=== PATIENT | female | born 1985 | race Caucasian/White ===

== ENCOUNTER 2016-04-25 16:23 | Emergency (ER) | payer OTHER ==
[2016-04-25 16:30] VITALS: BP 116/65; PULSE 53; RESP 17; TEMP 98
--- NOTE | 2016-04-25 16:46 | ED ---
General Adult HPI - General Chief complaint: Recheck/Abnormal Lab/Rx Stated complaint: Difficulty Sleeping Time Seen by Provider: 04/25/16 16:31 Source: patient, RN notes reviewed Mode of arrival: ambulatory Limitations: no limitations - History of Present Illness Initial comments: 30-year-old female presented emergency Department chief complaint insomnia. Patient states she's been having ongoing issues. Patient states that the last few days she'll had 7 hours sleep. Patient denies any changes. Patient is currently seen her neurologist for possible change in medication on Tuesday. Patient neurologist aware of her symptoms. Patient denies any suicidal or homicidal thoughts. Patient is requesting medication to help her sleep. She's never taken it in the past. This chest pain, palpitations, fever, chills. She states she has not taken any medication for thyroid at this time because the SIDE effects. - Related Data Home Medications Medication Instructions Recorded Confirmed Levothyroxine Sodium [Synthroid] 25 mcg PO DAILY 10/20/13 12/10/15 Topiramate [Topamax] 25 mg PO BID 10/20/13 12/10/15 levETIRAcetam [Keppra] 1,000 mg PO Q12HR 10/20/13 12/10/15 Budesonide-Formot 160-4.5 Mcg 1 puff INHALATION RT-BID 12/10/15 12/10/15 [Symbicort 160-4.5 Mcg Inhaler] Diazepam [Valium] 10 mg PO TID PRN 12/10/15 12/10/15 Previous Rx's Medication Instructions Recorded Ondansetron Odt [Zofran Odt] 4 mg PO Q8HR PRN #12 tab 12/10/15 Zolpidem [Ambien] 5 mg PO HS #5 tab 04/25/16 Allergies Allergy/AdvReac Type Severity Reaction Status Date / Time adhesive Allergy Unknown Verified 12/10/15 10:20 Review of Systems ROS Statement: Those systems with pertinent positive or pertinent negative responses have been documented in the HPI. ROS Other: All systems not noted in ROS Statement are negative. Past Medical History Past Medical History: GERD/Reflux, Seizure Disorder, Thyroid Disorder Additional Past Medical History / Comment(s): seizure, hypothyroid, History of Any Multi-Drug Resistant Organisms: None Reported Additional Past Surgical History / Comment(s): right hand, left foot Past Psychological History: No Psychological Hx Reported Smoking Status: Current every day smoker Past Alcohol Use History: None Reported Past Drug Use History: None Reported General Exam Limitations: no limitations General appearance: alert, in no apparent distress Head exam: Present: atraumatic, normocephalic, normal inspection Neck exam: Present: normal inspection. Absent: tenderness, meningismus, lymphadenopathy Respiratory exam: Present: normal lung sounds bilaterally. Absent: respiratory distress, wheezes, rales, rhonchi, stridor Cardiovascular Exam: Present: regular rate, normal rhythm, normal heart sounds. Absent: systolic murmur, diastolic murmur, rubs, gallop, clicks Neurological exam: Present: alert, oriented X3, CN II-XII intact Course Vital Signs 04/25/16 16:27 Temperature 98.0 F Pulse Rate 53 L Respiratory 17 Rate Blood Pressure 116/65 O2 Sat by Pulse 98 Oximetry Medical Decision Making - Medical Decision Making 30-year-old female presented for insomnia. Patient is seen her neurologist for this and scheduled appointment with Dr. Nieto. Patient was given a few tablets to help her sleep at this time and discharge. Disposition Clinical Impression: Insomnia Disposition: HOME SELF-CARE Condition: Stable Instructions: Insomnia (ED) Additional Instructions: Please return to the Emergency Department if symptoms worsen or any other concerns. Prescriptions: Zolpidem [Ambien] 5 mg PO HS #5 tab Time of Disposition: 16:46
== END 2016-04-25 17:11 | disposition home or self-care (01) ==
LOC: EC 16:23
DX: G47.00 Insomnia, unspecified (principal); G40.909 Epilepsy, unspecified, not intractable, without status epilepticus; Z79.899 Other long term (current) drug therapy; Z79.51 Long term (current) use of inhaled steroids; F17.200 Nicotine dependence, unspecified, uncomplicated

== ENCOUNTER → 2016-06-29 | Outpatient (CLI) | payer OTHER ==
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
--- NOTE | 2016-07-14 10:28 | WWPLE ---
July 14, 2016 Dr. Pawel Garcia RE: Marj Johnson Dear Dr. Pawel Garcia, I had the pleasure seeing your patient Marj Johnson in the office on 06/29/16. As you know she is a 30-year-old G1, P1 who was found to have a large pelvic mass by a CT scan. The CT scan showed a 12 cm complex mass which seemed to be arising from the left ovary. There were findings consisting of calcifications and fatty areas that gives this appearance of dermoid cyst. When I examined her, this mass seems slightly larger, approximately 16 cm. Her Pap smear was negative. Since I am no longer doing surgery at this time I have referred the patient Dr. Del Rosario for evaluation and surgical removal of the mass. She is scheduled to see him on 08/03/16. Thank you for allowing me to participate in care of your patient. Please do not hesitate to call if you have any questions. Sincerely, Mateo Collins M.D. IVAN
== END | disposition home or self-care (01) ==
LOC: WWCWWP 09:52
PROVIDERS: ATTEND Obstetrics & Gynecology
DX: Z53.9 Procedure and treatment not carried out, unspecified reason (principal)

== ENCOUNTER 2016-07-04 10:31 | Emergency (ER) | payer OTHER ==
[2016-07-04] MEDS ORDERED: SODIUM CHLORIDE 0.9% 500 ML IV STA (11:05)
[2016-07-04] MEDS ORDERED: SODIUM CHLORIDE 0.9% 1,000 ML IV STA (11:05)
--- NOTE | 2016-07-04 11:08 | ED ---
General Adult HPI - General Chief complaint: Abdominal Pain Stated complaint: abd pain Time Seen by Provider: 07/04/16 10:59 Source: patient, RN notes reviewed, old records reviewed Mode of arrival: ambulatory Limitations: no limitations - History of Present Illness Initial comments: This is a 30-year-old female here for evaluation. The patient comes in for evaluation of abdominal pain, patient has no prior history of similar abdominal pain, she states she has had ovarian cysts which have been similar. No change in bowel or bladder habits, no fevers. No nausea vomiting or diarrhea. Patient has no other complaints - Related Data Home Medications Medication Instructions Recorded Confirmed levETIRAcetam [Keppra] 1,000 mg PO Q12H 10/20/13 04/25/16 Budesonide-Formot 160-4.5 Mcg 2 puff INHALATION RT-BID 12/10/15 04/25/16 [Symbicort 160-4.5 Mcg Inhaler] Diazepam [Valium] 10 mg PO TID PRN 12/10/15 04/25/16 Acetaminophen/Diphenhydramine 1 - 2 tab PO HS PRN 04/25/16 04/25/16 [Tylenol PM 500-25mg] Loratadine [Claritin] 10 mg PO DAILY 04/25/16 04/25/16 Melatonin 5 mg PO HS PRN 04/25/16 04/25/16 Previous Rx's Medication Instructions Recorded Zolpidem [Ambien] 5 mg PO HS #5 tab 04/25/16 Allergies Allergy/AdvReac Type Severity Reaction Status Date / Time adhesive Allergy Rash/Hives Verified 07/04/16 10:46 Review of Systems ROS Statement: Those systems with pertinent positive or pertinent negative responses have been documented in the HPI. ROS Other: All systems not noted in ROS Statement are negative. Past Medical History Past Medical History: GERD/Reflux, Seizure Disorder, Thyroid Disorder Additional Past Medical History / Comment(s): seizure, hypothyroid, History of Any Multi-Drug Resistant Organisms: None Reported Additional Past Surgical History / Comment(s): right hand, left foot Past Psychological History: Anxiety Smoking Status: Current every day smoker Past Alcohol Use History: None Reported Past Drug Use History: Marijuana General Exam Limitations: no limitations General appearance: alert, in no apparent distress Head exam: Present: atraumatic, normocephalic, normal inspection Eye exam: Present: normal appearance, PERRL, EOMI. Absent: scleral icterus, conjunctival injection, periorbital swelling ENT exam: Present: normal exam, mucous membranes moist Neck exam: Present: normal inspection. Absent: tenderness, meningismus, lymphadenopathy Respiratory exam: Present: normal lung sounds bilaterally. Absent: respiratory distress, wheezes, rales, rhonchi, stridor Cardiovascular Exam: Present: regular rate, normal rhythm, normal heart sounds. Absent: systolic murmur, diastolic murmur, rubs, gallop, clicks GI/Abdominal exam: Present: soft, tenderness (Suprapubic), normal bowel sounds. Absent: distended, guarding, rebound, rigid Extremities exam: Present: normal inspection, full ROM, normal capillary refill. Absent: tenderness, pedal edema, joint swelling, calf tenderness Back exam: Present: normal inspection Neurological exam: Present: alert, oriented X3, CN II-XII intact Psychiatric exam: Present: normal affect, normal mood Skin exam: Present: warm, dry, intact, normal color. Absent: rash Course Vital Signs 07/04/16 10:44 Temperature 97.4 F L Pulse Rate 62 Respiratory 20 Rate Blood Pressure 110/72 O2 Sat by Pulse 99 Oximetry - Reevaluation(s) Reevaluation #1: 07/04/16 11:07 Patient does have mild pain improvement Medical Decision Making - Medical Decision Making 30 female here with nonspecific pelvic pain, sore throat abdominal pain, positive ovarian cystic mass, patient will be followed up with OB. - Lab Data Result diagrams: 07/04/16 11:55 07/04/16 11:55 Lab Results 07/04/16 07/04/16 07/04/16 Range/Units 11:55 11:55 11:55 WBC 8.3 (3.8-10.6) k/uL RBC 4.52 (3.80-5.40) m/uL Hgb 14.0 (11.4-16.0) gm/dL Hct 41.7 (34.0-46.0) % MCV 92.2 (80.0-100.0) fL MCH 31.0 (25.0-35.0) pg MCHC 33.6 (31.0-37.0) g/dL RDW 12.8 (11.5-15.5) % Plt Count 322 (150-450) k/uL Neutrophils % 61 % Lymphocytes % 23 % Monocytes % 6 % Eosinophils % 7 % Basophils % 1 % Neutrophils # 5.1 (1.3-7.7) k/uL Lymphocytes # 1.9 (1.0-4.8) k/uL Monocytes # 0.5 (0-1.0) k/uL Eosinophils # 0.6 (0-0.7) k/uL Basophils # 0.1 (0-0.2) k/uL Sodium 142 (137-145) mmol/L Potassium 3.7 (3.5-5.1) mmol/L Chloride 107 (98-107) mmol/L Carbon Dioxide 25 (22-30) mmol/L Anion Gap 10 mmol/L BUN 11 (7-17) mg/dL Creatinine 0.80 (0.52-1.04) mg/dL Est GFR (MDRD) Af Amer >60 (>60 ml/min/1.73 sqM) Est GFR (MDRD) Non-Af >60 (>60 ml/min/1.73 sqM) Glucose 93 (74-99) mg/dL Calcium 9.6 (8.4-10.2) mg/dL Total Bilirubin 0.9 (0.2-1.3) mg/dL AST 17 (14-36) U/L ALT 26 (9-52) U/L Alkaline Phosphatase 42 (38-126) U/L Total Protein 6.8 (6.3-8.2) g/dL Albumin 3.9 (3.5-5.0) g/dL Amylase 78 (30-110) U/L Lipase 165 (23-300) U/L Urine Color Urine Appearance (Clear) Urine pH (5.0-8.0) Ur Specific Coy (1.001-1.035) Urine Protein (Negative) Urine Glucose (UA) (Negative) Urine Ketones (Negative) Urine Blood (Negative) Urine Nitrite (Negative) Urine Bilirubin (Negative) Urine Urobilinogen (<2.0) mg/dL Ur Leukocyte Esterase (Negative) Urine RBC (0-5) /hpf Urine WBC (0-5) /hpf Ur Squamous Epith Cells (0-4) /hpf Urine Bacteria (None) /hpf Urine Mucus (None) /hpf Urine HCG, Qual Not Detected (Not Detectd) Urine Opiates Screen (NotDetected) Ur Oxycodone Screen (NotDetected) Urine Methadone Screen (NotDetected) Ur Propoxyphene Screen (NotDetected) Ur Barbiturates Screen (NotDetected) U Tricyclic Antidepress (NotDetected) Ur Phencyclidine Scrn (NotDetected) Ur Amphetamines Screen (NotDetected) U Methamphetamines Scrn (NotDetected) U Benzodiazepines Scrn (NotDetected) Urine Cocaine Screen (NotDetected) U Marijuana (THC) Screen (NotDetected) Serum Alcohol <10 mg/dL 07/04/16 07/04/16 Range/Units 11:55 11:55 WBC (3.8-10.6) k/uL RBC (3.80-5.40) m/uL Hgb (11.4-16.0) gm/dL Hct (34.0-46.0) % MCV (80.0-100.0) fL MCH (25.0-35.0) pg MCHC (31.0-37.0) g/dL RDW (11.5-15.5) % Plt Count (150-450) k/uL Neutrophils % % Lymphocytes % % Monocytes % % Eosinophils % % Basophils % % Neutrophils # (1.3-7.7) k/uL Lymphocytes # (1.0-4.8) k/uL Monocytes # (0-1.0) k/uL Eosinophils # (0-0.7) k/uL Basophils # (0-0.2) k/uL Sodium (137-145) mmol/L Potassium (3.5-5.1) mmol/L Chloride (98-107) mmol/L Carbon Dioxide (22-30) mmol/L Anion Gap mmol/L BUN (7-17) mg/dL Creatinine (0.52-1.04) mg/dL Est GFR (MDRD) Af Amer (>60 ml/min/1.73 sqM) Est GFR (MDRD) Non-Af (>60 ml/min/1.73 sqM) Glucose (74-99) mg/dL Calcium (8.4-10.2) mg/dL Total Bilirubin (0.2-1.3) mg/dL AST (14-36) U/L ALT (9-52) U/L Alkaline Phosphatase (38-126) U/L Total Protein (6.3-8.2) g/dL Albumin (3.5-5.0) g/dL Amylase (30-110) U/L Lipase (23-300) U/L Urine Color Yellow Urine Appearance Clear (Clear) Urine pH 6.0 (5.0-8.0) Ur Specific Coy 1.021 (1.001-1.035) Urine Protein Trace H (Negative) Urine Glucose (UA) Negative (Negative) Urine Ketones Negative (Negative) Urine Blood Moderate H (Negative) Urine Nitrite Negative (Negative) Urine Bilirubin Negative (Negative) Urine Urobilinogen <2.0 (<2.0) mg/dL Ur Leukocyte Esterase Trace H (Negative) Urine RBC 62 H (0-5) /hpf Urine WBC 1 (0-5) /hpf Ur Squamous Epith Cells 5 H (0-4) /hpf Urine Bacteria Rare H (None) /hpf Urine Mucus Few H (None) /hpf Urine HCG, Qual (Not Detectd) Urine Opiates Screen Not Detected (NotDetected) Ur Oxycodone Screen Not Detected (NotDetected) Urine Methadone Screen Not Detected (NotDetected) Ur Propoxyphene Screen Not Detected (NotDetected) Ur Barbiturates Screen Not Detected (NotDetected) U Tricyclic Antidepress Not Detected (NotDetected) Ur Phencyclidine Scrn Not Detected (NotDetected) Ur Amphetamines Screen Not Detected (NotDetected) U Methamphetamines Scrn Not Detected (NotDetected) U Benzodiazepines Scrn Not Detected (NotDetected) Urine Cocaine Screen Not Detected (NotDetected) U Marijuana (THC) Screen Detected H (NotDetected) Serum Alcohol mg/dL - Radiology Data Radiology results: report reviewed (US is Positive for Ovarian Cyst ), image reviewed Disposition Clinical Impression: Ovarian cyst, Abdominal pain Disposition: HOME SELF-CARE Instructions: Ovarian Cyst (ED) Referrals: Pawel Garcia MD [Primary Care Provider] - 1-2 days
[2016-07-04 12:07] LABS: Basophils # (A) 0.1 k/uL (0-0.2); Basophils % (A) 1 %; CHCM 34.9; Eosinophils # (A) 0.6 k/uL (0-0.7); Eosinophils % (A) 7 %; HCT 41.7 % (34.0-46.0); HDW 2.26; Luc # (Auto) 0.19; Luc % (Auto) 2; Lymphocytes # (A) 1.9 k/uL (1.0-4.8); Lymphocytes % (A) 23 %; MCHC 33.6 g/dL (31.0-37.0); MCV 92.2 fL (80.0-100.0); Mean Platelet Volume 6.3; Monocytes # (A) 0.5 k/uL (0-1.0); Monocytes % (A) 6 %; Neutrophils # (A) 5.1 k/uL (1.3-7.7); Neutrophils % (A) 61 %; RBC 4.52 m/uL (3.80-5.40); RDW 12.8 % (11.5-15.5); WBC 8.3 k/uL (3.8-10.6)
[2016-07-04 12:10] LABS: Appearance,Urine Clear (Clear); Bacteria,Urine Rare /hpf; Bilirubin,Urine Negative (Negative); Glucose,Urine (UA) Negative (Negative); Ketones,Urine Negative (Negative); Leukocyte Esterase,Urine Trace (Negative); Mucus,Urine Few /hpf; Nitrite,Urine Negative (Negative); Particle Count 5378; Protein,Urine Trace (Negative); RBC,Urine 62 /hpf (0-5); Specific Gravity,Urine 1.021 (1.001-1.035); Squamous Epithelial Cell,Urine 5 /hpf (0-4); UA Billing (MACRO vs. MICRO) MICRO; Urobilinogen,Urine <2.0 mg/dL (<2.0); WBC,Urine 1 /hpf (0-5)
[2016-07-04 12:16] LABS: ALT 26 U/L (9-52); AST 17 U/L (14-36); Alcohol <10 mg/dL; Alkaline Phosphatase 42 U/L (38-126); Amylase 78 U/L (30-110); Anion Gap 10 mmol/L; Blood Urea Nitrogen 11 mg/dL (7-17); Calcium 9.6 mg/dL (8.4-10.2); Carbon Dioxide 25 mmol/L (22-30); Chloride 107 mmol/L (98-107); Glucose 93 mg/dL (74-99); Non-African American GFR(MDRD) >60 (>60 ml/min/1.73 sqM); Potassium 3.7 mmol/L (3.5-5.1); Sodium 142 mmol/L (137-145); Total Bilirubin 0.9 mg/dL (0.2-1.3); Total Protein 6.8 g/dL (6.3-8.2)
--- NOTE | 2016-07-04 12:56 | US ---
EXAMINATION TYPE: US pelvis complete transvag DATE OF EXAM: 07/04/2016 12:27 PM COMPARISON: CT dated 20 October 2013 CLINICAL HISTORY: Pain. known large pelvic mass TECHNIQUE: Transvaginal (TV) and Transabdominal (TA) endovaginal scanning performed for better evalu ation of the uterus Date of LMP: patient states she is on her cycle now EXAM MEASUREMENTS: Uterus: 6.9 x 3.9 x 5.0 cm Endometrial Stripe: 0.4 cm Right Ovary: not definitely identified Left Ovary: not definitely identified 1. Uterus: Anteverted wnl 2. Endometrium: wnl 3. Right Ovary: not definitely identified 4. Left Ovary: not definitely identified 5. Bilateral Adnexa: large complex mass with mostly fluid with septations that also has an echogenic area, which was previously seen on CT and thought to be a dermoid. Patient has seen a automobile tester. Mass measures 14.2 x 11.8 x 11.3 cm and does not demonstrate vascularity. Neither ovary is clearly id entified as mass is displacing structures. 6. Posterior cul-de-sac: no free fluid IMPRESSION: Cystic mass is again demonstrated.
[2016-07-04 13:38] VITALS: BP 106/56; PULSE 58; RESP 18; TEMP 98.1
== END 2016-07-04 13:40 | disposition home or self-care (01) ==
LOC: EC 10:31
DX: N83.201 Unspecified ovarian cyst, right side (principal); N83.202 Unspecified ovarian cyst, left side; J02.9 Acute pharyngitis, unspecified; F41.9 Anxiety disorder, unspecified; G40.909 Epilepsy, unspecified, not intractable, without status epilepticus; F17.200 Nicotine dependence, unspecified, uncomplicated; Z79.51 Long term (current) use of inhaled steroids; Z79.899 Other long term (current) drug therapy; Z91.048 Other nonmedicinal substance allergy status
CPT/HCPCS: 36415; 76830; 76856; 80053; 80306; 80320; 81001; 81025; 82150; 83690; 85025; 87077; 87086; 87186; 87491; 87591; 96360; 96361; 99284

== ENCOUNTER 2016-07-06 11:19 | Observation (INO) | payer OTHER ==
[2016-07-06 12:20] VITALS: BMI 21.4
--- NOTE | 2016-07-06 14:26 | CT ---
EXAMINATION TYPE: CT brain wo con DATE OF EXAM: 07/06/2016 2:15 PM COMPARISON: 07/11/2011 HISTORY: Syncope CT DLP: [address] of the brain was performed. The ventricles, basal cisterns and sulci overlying the cerebral convexities demonstrate a normal appe arance. There is no evidence for intracranial hemorrhage or sulcal effacement. No mass effects are seen. Osseous calvarium is intact. If symptoms persist consider MRI as clinically warranted. IMPRESSION: 1. No acute intracranial process is seen at this time.
[2016-07-06 14:34] LABS: Basophils # (A) 0.1 k/uL (0-0.2); Basophils % (A) 1 %; CH 31.7; CHCM 33.7; Eosinophils # (A) 0.5 k/uL (0-0.7); Eosinophils % (A) 5 %; HCT 37.8 % (34.0-46.0); HDW 2.14; HGB 12.1 gm/dL (11.4-16.0); Luc # (Auto) 0.25; Luc % (Auto) 3; Lymphocytes # (A) 2.5 k/uL (1.0-4.8); Lymphocytes % (A) 25 %; MCH 30.3 pg (25.0-35.0); MCV 94.6 fL (80.0-100.0); Mean Platelet Volume 6.5; Monocytes # (A) 0.5 k/uL (0-1.0); Monocytes % (A) 5 %; Neutrophils # (A) 6.3 k/uL (1.3-7.7); Neutrophils % (A) 62 %; RBC 3.99 m/uL (3.80-5.40); RDW 12.9 % (11.5-15.5); WBC 10.1 k/uL (3.8-10.6); WBC (Perox) 9.76
[2016-07-06 14:43] LABS: ALT 22 U/L (9-52); AST 16 U/L (14-36); Alkaline Phosphatase 36 U/L (38-126); Anion Gap 6 mmol/L; Blood Urea Nitrogen 10 mg/dL (7-17); Carbon Dioxide 25 mmol/L (22-30); Chloride 108 mmol/L (98-107); Glucose 83 mg/dL (74-99); Non-African American GFR(MDRD) >60 (>60 ml/min/1.73 sqM); Potassium 3.9 mmol/L (3.5-5.1); Sodium 139 mmol/L (137-145); Total Bilirubin 0.7 mg/dL (0.2-1.3); Total Protein 5.9 g/dL (6.3-8.2)
[2016-07-06] MEDS: SODIUM CHLORIDE 0.9% 1,000 ML IV SCH (15:05)
[2016-07-06] MEDS: NICOTINE 14MG/24HR PATCH TRANSDERM SCH (15:49)
[2016-07-06] MEDS: IBUPROFEN 600 MG TAB PO PRN (17:00)
[2016-07-06 19:34] VITALS: RESP 20
[2016-07-06] MEDS: levETIRAcetam 500 MG TAB PO SCH (20:37)
[2016-07-06] MEDS: FAMOTIDINE 20 MG TAB PO SCH (20:37)
[2016-07-06] MEDS ORDERED: ZOLPIDEM 5 MG TAB PO SCH (21:00)
[2016-07-07] MEDS: FAMOTIDINE 20 MG TAB PO SCH (09:11)
[2016-07-07] MEDS: levETIRAcetam 500 MG TAB PO SCH (09:11)
[2016-07-07] MEDS: SODIUM CHLORIDE 0.9% 1,000 ML IV SCH ×2 (09:12→15:41)
[2016-07-07] MEDS: IBUPROFEN 600 MG TAB PO PRN ×2 (09:16→15:09)
[2016-07-07] MEDS ORDERED: LEVOFLOXACIN 500 MG TAB PO SCH (14:00)
[2016-07-07] MEDS: NICOTINE 14MG/24HR PATCH TRANSDERM SCH (15:10)
--- NOTE | 2016-07-07 15:30 | P.HPIM ---
History of Present Illness H&P Date: 07/06/16 Chief Complaint: Seizure 30-year-old female was made a direct admission from Dr. Delgado's office. 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 Patient did not lose control over bowel or bladder. Patient states she has a history of a seizure disorder diagnosed 5 years prior has been on Keppra. Patient states she has not had a seizure in many years". Patient denies any recent hospitalization. Patient states that she just suddenly went back to work is only been at work for couple days. Patient states that she did keep hydrated while at work. Patient has not had any episodes of dizziness lightheadedness chest pain blurred vision. Patient states that she the EMS system was activated and she was transferred to [facility] in [place] was seen in the emergency room lab work was drawn patient was discharged she stated that she became concerned and went to Dr. Delgado's office where they advised her to be admitted and worked up for the seizure disorder. Questioning patient if she been compliant with taking her Keppra as ordered patient stated that she was. Patient stated that she was seen by a neurologist many years ago but has not been back. Upon seeing the patient patient is sitting up in bed denies headache denies chest pain dizziness or lightheadedness or blurred vision chief complaint "hungry. Did note the patient has a harsh nonproductive cough patient states that she is a smoker has cough like this "for some time has not had a fever or chill Review of Systems Essentially unremarkable except as mentioned in the present illness Past Medical History Past Medical History: GERD/Reflux, Seizure Disorder, Thyroid Disorder Additional Past Medical History / Comment(s): seizure, hypothyroid, History of Any Multi-Drug Resistant Organisms: None Reported Additional Past Surgical History / Comment(s): right hand, left foot Past Anesthesia/Blood Transfusion Reactions: No Reported Reaction Past Psychological History: Anxiety Additional Psychological History / Comment(s): pt uses marijuana occasionally to help Smoking Status: Current every day smoker Past Alcohol Use History: None Reported Additional Past Alcohol Use History / Comment(s): 1/2 pack a day Past Drug Use History: Marijuana - Past Family History Mother Family Medical History: No Reported History Medications and Allergies Home Medications Medication Instructions Recorded Confirmed Type levETIRAcetam [Keppra] 1,000 mg PO BID 07/06/16 07/06/16 History Allergies Allergy/AdvReac Type Severity Reaction Status Date / Time adhesive Allergy Rash/Hives Verified 07/06/16 13:02 TAPE AdvReac Itching Uncoded 07/06/16 11:50 Physical Exam Vitals: Vital Signs Temp Pulse Resp BP Pulse Ox 07/06/16 11:39 97.1 F L 60 16 101/54 100 Intake and Output 07/05/16 07/06/16 07/06/16 22:59 06:59 14:59 Other: Weight 62.1 kg Patient Weight 07/07/16 06:59 Weight 62.1 kg GENERAL APPEARANCE: 30 year old female patient is alert, oriented 3, in no acute distress. Denying dizziness lightheadedness blurred vision or headache VITAL SIGNS: Reviewed HEENT: Head is normocephalic and atraumatic. Pupils are equal and reactive. The nares are patent. Oropharynx is clear without lesions. NECK: Supple without lymphadenopathy. Traches midline. HEART: S1, S2. Regular rate and rhythm. No murmur noted denying chest pain LUNGS: No crackles or wheezes are heard. A course nonproductive cough noted adequate air movement no shortness of breath ABDOMEN: Soft, nontender, nondistended with good bowel sounds. No peritoneal signs. No palpable organomegaly or masses. EXTREMITIES: Normal skin color and turgor. No cyanosis, rash, ulceration, clubbing or edema. Radial pedal pulses are 2/4 bilaterally. NEUROLOGICAL: No focal deficits. Strength and sensation are grossly intact. Results CBC & Chem 7: 07/06/16 13:52 07/06/16 13:52 Thrombosis Risk Factor Assmnt - Choose All That Apply Any of the Below Risk Factors Present?: No Other Risk Factors: Yes Each Risk Factor Represents 3 Points: Family history of DVT/PE Other congenital or acquired thrombophilia - If yes, enter type in comment: No Thrombosis Risk Factor Assessment Total Risk Factor Score: 3 Thrombosis Risk Factor Assessment Level: Moderate Risk Assessment and Plan Plan: Impression Prior to admission seizure History of a seizure disorder diagnosed 5 years prior on Current every day smoker 1 pack a day greater than 10 year history Plan Check Keppra level now Consult neurology computed tomography scan of the brain Resume home meds Further recommendations pending DVT and GI prophylaxis Seizure precautions The above dictated assessment and findings were discussed with dr delgado Impression and the plan of care have been dictated as directed. Kathie Reed nurse practitioner acting as a scribe for dr delgado
--- NOTE | 2016-07-07 15:38 | P.DS ---
Providers Date of admission: 07/06/16 11:19 Expected date of discharge: 07/07/16 Attending physician: Pawel Delgado Consults: 07/06/16 13:40 Consult Physician Stat Consulting Provider: Shagufta Mao Consult Reason/Comments: New-onset seizure Do you want consulting provider notified?: Yes Primary care physician: [facility] Course: 30-year-old female who was a direct admission from Dr. Delgado's office patient stated that she had a seizure earlier in the morning while at work. 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 Patient stated the last thing she remembered was waking up being told she had a seizure by a coworker. Patient states she did not lose control of her bowel or bladder did not bite her tongue. Patient does give history of a seizure disorder diagnosed 5 years prior. Patient states she was started on Keppra. According to the patient she has not had a seizure in many years. Additionally patient states that she has been compliant with taking Keppra 1000mg twice a day. Nursing reports that the patient reportedly told the nursing staff that she had not been taking her Keppra as directed. Subsequent the patient was admitted to the services of the attending with a neurology consultation obtained. Patient had no further seizures. Was seen in July 04 in the emergency room and had a urine culture was sent was positive for E. coli patient was started on Levaquin this admission on July 07 was given first dose. Impression discharge diagnosis Present on admission report of a seizure History of a seizure disorder A UTI with positive urine culture present on admission Current every day smoker 1 pack daily greater than a 10 year history The above dictated assessment and findings were discussed with dr delgado . Impression and the plan of care have been dictated as directed. Kathie Reed nurse practitioner acting as a scribe for dr delgado Plan - Discharge Summary New Discharge Prescriptions: Levofloxacin [Levaquin] 500 mg PO DAILY #5 tab Nicotine 14Mg/24Hr Patch [Habitrol] 1 patch TRANSDERM DAILY #30 patch levETIRAcetam [Keppra] 1,000 mg PO BID #60 tablet Discharge Medication List Zolpidem [Ambien] 5 mg PO HS #5 tab 04/25/16 [Rx] Levofloxacin [Levaquin] 500 mg PO DAILY #5 tab 07/07/16 [Rx] Levofloxacin [Levaquin] 500 mg PO Q24H tab 07/07/16 [Rx] Nicotine 14Mg/24Hr Patch [Habitrol] 1 patch TRANSDERM DAILY #30 patch 07/07/16 [ Rx] levETIRAcetam [Keppra] 1,000 mg PO BID #60 tablet 07/07/16 [Rx] Follow up Appointment(s)/Referral(s): Pawel Delgado MD [Primary Care Provider] - 07/09/16 Discharge Disposition: HOME SELF-CARE
[2016-07-07 19:55] VITALS: BP 104/61; PULSE 74; TEMP 98.7
[2016-07-07] MEDS ORDERED: SUMAtriptan SUCCINATE 50 MG TAB PO ONE (20:30)
[2016-07-07] MEDS ORDERED: levETIRAcetam IV 1,000 MG in SALINE 1 100ML.BAG IVPB ONE (21:00)
--- NOTE | 2016-07-08 10:08 | CONS ---
DATE OF CONSULTATION: 07/07/2016 CHIEF COMPLAINT: Seizures. HISTORY OF PRESENT ILLNESS: The patient is a 30-year-old female who is being evaluated today on 07/07/2016 by the neurology service per the request of Dr. Pawel Garcia for seizures. The patient was brought into [facility] after she suffered a seizure while at work. The patient does not recall the event, but does remember that she was at work and the next thing she remembers is EMS being present while she was on the floor. The patient was initially taken to [facility] where she was then discharged home. She followed up with Dr. Garcia who admitted the patient to [facility] as a direct admit. The patient does have history of seizure disorder and has been on Keppra 1000 mg b.i.d. for several years. Initially, the patient stated that she had been compliant with her medications, but her serum Keppra level was undetectable. She then gave the nursing staff 2 different stories, one being that she did have Keppra at home, but she discontinued it one week ago. Another story was told to the nursing staff is that she ran out of her medication one week ago. The patient has been restarted on Keppra 1000 mg p.o. b.i.d. on this admission. She is also complaining of recurrent headaches. She states that she has always suffered with migraine headaches over the past few months, her headaches have been almost daily. She describes the pain as a throbbing pain that is mostly in the frontal region and she rates them anywhere from 5 to 10 out of 10 in intensity. I did review her CT scan of the brain from today, which was normal. Her CBC was normal. Her comprehensive metabolic profile was normal except for mildly decreased protein and albumin at 5.9 and 3.3 respectively. At the time of my evaluation, she is sitting up at the edge of her bed and appears to be in no acute distress. She has not had any further seizures, but still complains of a frontal headache. PAST MEDICAL HISTORY: Epilepsy, migraine headaches, gastroesophageal reflux disease, hypothyroidism, anxiety disorder, history of orthopedic surgeries. SOCIAL HISTORY: The patient is a current every day smoker. She occasionally smokes marijuana. She denies any alcohol or drug use. FAMILY HISTORY: Noncontributory. HOME MEDICATIONS: Reviewed in the chart. ALLERGIES: ADHESIVE TAPE. REVIEW OF SYSTEMS: CONSTITUTIONAL: Negative. EYES: Negative. ENT: Negative. CARDIOVASCULAR: Negative. RESPIRATORY: Negative. NEUROLOGICAL: As mentioned above. GASTROINTESTINAL: Positive for occasional heartburn. GENITOURINARY: Negative. PSYCHIATRIC: Positive for history of anxiety disorder. DERMATOLOGICAL: Negative. MUSCULOSKELETAL: Positive for occasional joint pain and low back pain. ENDOCRINE: Positive for hypothyroidism. PHYSICAL EXAM: Vital signs show a temperature of 97.4, pulse 66, respirations 20, blood pressure 89/56. GENERAL APPEARANCE: The patient is a well-developed female who appears to be in no acute distress. HEENT: Normocephalic, atraumatic, no facial asymmetry is seen. Neck is supple with no masses felt. CARDIOVASCULAR: Regular rate and rhythm. ABDOMEN: Nontender, nondistended. Extremities showed no edema or clubbing. NEUROLOGICAL EXAM: The patient is awake, alert, and oriented x3. Speech and language are normal. Strength is full in all 4 extremities. Gait is normal. Sensory exam was normal to light touch in all 4 extremities. No facial asymmetry is seen on cranial nerve testing. IMPRESSION: 1. Breakthrough seizure. 2. Medication noncompliance. 3. Uncontrolled migraines. 4. History of generalized tonic-clonic seizures. RECOMMENDATIONS: The patient's seizures had been well controlled for several years on Keppra 1000 mg b.i.d. She does admit that she has been off of her Keppra for one week and she did have a breakthrough seizure due to this. As mentioned above, her serum Keppra level was undetectable. The patient has been restarted on Keppra at her home dose. The patient wishes to be discharged home today and there is no neurological reason why this could not be done. I will give her a single loading dose of Keppra 1000 mg IV. A new prescription for Keppra was given to the patient. Her EEG was reviewed and it showed no epileptiform discharges. The patient does not drive. As for her migraines, she does have a severe headache now. I will give her a single dose of Imitrex 50 mg orally. I will also start her on Zonegran for migraine prophylaxis. She will be started on Zonegran 100 mg q.h.s. for one week and then this will be increased to 200 mg q.h.s. She will follow up with me after discharge. As mentioned above, the patient does not drive. She was told to refrain from operating any heavy machinery for the next week to see if her seizures are going to be well controlled again. Thank you, Dr. Garcia, for allowing me to participate in the care of your patient. If you have any questions, please feel free to contact me.
--- NOTE | 2016-07-10 08:54 | EEG ---
DATE OF SERVICE: 07/07/2016 INDICATIONS FOR EXAMINATION: Seizures. AGE: 30Y CURRENT ANTIEPILEPTIC MEDICATIONS: Keppra. DESCRIPTION OF THE PROCEDURE: This EEG was performed using a 21-channel digital electroencephalograph, following the international 10 to 20 system. DESCRIPTION OF THE RECORDING: From the beginning of the tracing, and with the patient's eyes closed, the background rhythm was mostly consisting of 9 Hz alpha frequency in the posterior occipital leads. No obvious asymmetry is seen. Photic stimulation was performed with a good driving response seen. No pathological waves were elicited. Hyperventilation was performed with a mild build-up of amplitude seen. Again, no pathological waves were elicited. The patient remains awake throughout the tracing. No epileptiform discharges were seen. Her EKG lead showed a regular rate and rhythm. INTERPRETATION: This awake EEG can be considered within normal limits. There was no asymmetry seen. No epileptiform discharges were noticed. The absence of epileptiform discharges does not rule out the diagnosis of a foot of epilepsy, therefore, clinical correlation is recommended.
== END 2016-07-07 21:00 | disposition home or self-care (01) ==
LOC: 6PED 11:19
PROVIDERS: ADMIT Family Medicine; ATTEND Family Medicine
DX: G40.409 Other generalized epilepsy and epileptic syndromes, not intractable, without status epilepticus (principal); N39.0 Urinary tract infection, site not specified; G43.909 Migraine, unspecified, not intractable, without status migrainosus; Z91.14 Patient's other noncompliance with medication regimen; Z91.048 Other nonmedicinal substance allergy status; F17.200 Nicotine dependence, unspecified, uncomplicated
CPT/HCPCS: 96360; 96361; 95819; 80053; 80177; 85025; 70450; G0379; G0378 ×2; S4990 ×2; J1953

== ENCOUNTER → 2016-07-30 | Outpatient (CLI) | payer OTHER | END | disposition home or self-care (01) | LOC: LAB 19:17 | PROVIDERS: ATTEND Obstetrics & Gynecology | DX: Z53.9 Procedure and treatment not carried out, unspecified reason (principal) ==

== ENCOUNTER 2016-11-02 14:03 | Emergency (ER) | payer OTHER ==
[2016-11-02] MEDS ORDERED: ACETAMINOPHEN TAB 500 MG TAB PO STA (14:30)
--- NOTE | 2016-11-02 14:30 | ED ---
General Adult HPI - General Chief complaint: Seizure Stated complaint: Seizure Time Seen by Provider: 11/02/16 14:23 Source: patient, EMS, RN notes reviewed Mode of arrival: EMS Limitations: no limitations - History of Present Illness Initial comments: Patient is a pleasant 31-year-old female presenting to the emergency department following seizure. Patient states her fianc woke up to her having a seizure. After this she was reportedly acting like a child for several minutes. Patient feels normal at this time except for complaints of headache. This is a common symptom for her following seizure. Patient only gets seizures a couple of times per year. Patient is on Keppra 1000 mg twice daily and has been taking this. No recent illness. Patient does not feel confused at this time. No weakness. - Related Data Home Medications Medication Instructions Recorded Confirmed Ibuprofen [Motrin] 400 mg PO Q6H PRN 07/30/16 11/02/16 Previous Rx's Medication Instructions Recorded levETIRAcetam [Keppra] 1,000 mg PO BID #60 tablet 07/07/16 Allergies Allergy/AdvReac Type Severity Reaction Status Date / Time adhesive Allergy Rash/Hives Verified 11/02/16 15:06 TAPE AdvReac Itching Uncoded 07/30/16 17:46 Review of Systems ROS Statement: Those systems with pertinent positive or pertinent negative responses have been documented in the HPI. ROS Other: All systems not noted in ROS Statement are negative. Constitutional: Denies: fever Eyes: Denies: eye pain ENT: Denies: ear pain Respiratory: Denies: cough Cardiovascular: Denies: chest pain Endocrine: Denies: fatigue Gastrointestinal: Denies: abdominal pain, nausea, vomiting Genitourinary: Denies: urgency Musculoskeletal: Denies: back pain Skin: Denies: rash Neurological: Reports: headache. Denies: weakness, confusion Past Medical History Past Medical History: GERD/Reflux, Seizure Disorder, Thyroid Disorder Additional Past Medical History / Comment(s): Seizure DISORDER, LAST 07/06/16. Hypothyroid, UNSURE OF DIAGNOSIS, NO RX YET. History of Any Multi-Drug Resistant Organisms: None Reported Past Surgical History: Orthopedic Surgery Additional Past Surgical History / Comment(s): ORIF RT Hand. ORIF LT Foot. Past Anesthesia/Blood Transfusion Reactions: No Reported Reaction Past Psychological History: Anxiety Smoking Status: Current every day smoker Past Alcohol Use History: None Reported Past Drug Use History: Marijuana - Past Family History Mother Family Medical History: Deep Vein Thrombosis (DVT) Father Family Medical History: Cancer Additional Family Medical History / Comment(s): POSS CANCER General Exam Limitations: no limitations General appearance: alert, in no apparent distress Head exam: Present: atraumatic, normocephalic Eye exam: Present: normal appearance, PERRL, EOMI. Absent: nystagmus ENT exam: Present: normal oropharynx Neck exam: Present: normal inspection. Absent: tenderness Respiratory exam: Present: normal lung sounds bilaterally Cardiovascular Exam: Present: regular rate, normal rhythm GI/Abdominal exam: Present: soft. Absent: tenderness Extremities exam: Present: normal inspection. Absent: pedal edema, calf tenderness Neurological exam: Present: alert, oriented X3, CN II-XII intact. Absent: motor sensory deficit Expanded Patient oriented to: Present: person, place, time Speech: Present: fluid speech Cranial nerves: EOM's Intact: Normal, Facial Sensation: Normal Sensory exam: Upper Extremity Light Touch: Normal, Lower Extremity Light Touch: Normal Motor strength exam: RUE: 5, LUE: 5, RLE: 5, LLE: 5 Eye Response: (4) open spontaneously Motor Response: (6) obeys commands Verbal Response: (5) oriented Psychiatric exam: Present: normal affect, normal mood Skin exam: Present: normal color Course Vital Signs 11/02/16 11/02/16 14:20 15:19 Temperature 97.6 F Pulse Rate 75 69 Respiratory 18 16 Rate Blood Pressure 105/51 87/50 O2 Sat by Pulse 100 100 Oximetry - Reevaluation(s) Reevaluation #1: 11/02/16 14:39 Case was discussed in detail with Dr. Mao who does request checking a sec labs and The level. He feels if labs look okay he will follow-up with her in the office. Medical Decision Making - Medical Decision Making Patient was reexamined and resting comfortably in bed. Patient was updated on plan and pending Keppra level. Patient is aware that she will need to follow- up with Dr. Mao in the next day or 2 for recheck. Patient without further complaints. - Lab Data Result diagrams: 11/02/16 14:45 11/02/16 14:45 Lab Results 11/02/16 11/02/16 11/02/16 Range/Units 14:45 14:45 14:45 WBC (3.8-10.6) k/uL RBC (3.80-5.40) m/uL Hgb (11.4-16.0) gm/dL Hct (34.0-46.0) % MCV (80.0-100.0) fL MCH (25.0-35.0) pg MCHC (31.0-37.0) g/dL RDW (11.5-15.5) % Plt Count (150-450) k/uL Neutrophils % % Lymphocytes % % Monocytes % % Eosinophils % % Basophils % % Neutrophils # (1.3-7.7) k/uL Lymphocytes # (1.0-4.8) k/uL Monocytes # (0-1.0) k/uL Eosinophils # (0-0.7) k/uL Basophils # (0-0.2) k/uL Sodium 139 (137-145) mmol/L Potassium 4.0 (3.5-5.1) mmol/L Chloride 109 H (98-107) mmol/L Carbon Dioxide 23 (22-30) mmol/L Anion Gap 7 mmol/L BUN 10 (7-17) mg/dL Creatinine 0.60 (0.52-1.04) mg/dL Est GFR (MDRD) Af Amer >60 (>60 ml/min/1.73 sqM) Est GFR (MDRD) Non-Af >60 (>60 ml/min/1.73 sqM) Glucose 88 (74-99) mg/dL Calcium 9.0 (8.4-10.2) mg/dL Magnesium 2.1 (1.6-2.3) mg/dL Total Bilirubin 0.4 (0.2-1.3) mg/dL AST 22 (14-36) U/L ALT 20 (9-52) U/L Alkaline Phosphatase 42 (38-126) U/L Total Protein 6.5 (6.3-8.2) g/dL Albumin 3.8 (3.5-5.0) g/dL Urine Color Yellow Urine Appearance Cloudy H (Clear) Urine pH 6.5 (5.0-8.0) Ur Specific [place] 1.019 (1.001-1.035) Urine Protein Negative (Negative) Urine Glucose (UA) Negative (Negative) Urine Ketones Negative (Negative) Urine Blood Negative (Negative) Urine Nitrite Negative (Negative) Urine Bilirubin Negative (Negative) Urine Urobilinogen <2.0 (<2.0) mg/dL Ur Leukocyte Esterase Trace H (Negative) Urine WBC 3 (0-5) /hpf Ur Squamous Epith Cells 6 H (0-4) /hpf Urine Bacteria Rare H (None) /hpf Urine HCG, Qual Not Detected (Not Detectd) 11/02/16 Range/Units 14:45 WBC 11.5 H (3.8-10.6) k/uL RBC 4.25 (3.80-5.40) m/uL Hgb 13.0 (11.4-16.0) gm/dL Hct 39.1 (34.0-46.0) % MCV 92.0 (80.0-100.0) fL MCH 30.6 (25.0-35.0) pg MCHC 33.2 (31.0-37.0) g/dL RDW 14.0 (11.5-15.5) % Plt Count 325 (150-450) k/uL Neutrophils % 82 % Lymphocytes % 10 % Monocytes % 4 % Eosinophils % 3 % Basophils % 1 % Neutrophils # 9.4 H (1.3-7.7) k/uL Lymphocytes # 1.1 (1.0-4.8) k/uL Monocytes # 0.4 (0-1.0) k/uL Eosinophils # 0.4 (0-0.7) k/uL Basophils # 0.1 (0-0.2) k/uL Sodium (137-145) mmol/L Potassium (3.5-5.1) mmol/L Chloride (98-107) mmol/L Carbon Dioxide (22-30) mmol/L Anion Gap mmol/L BUN (7-17) mg/dL Creatinine (0.52-1.04) mg/dL Est GFR (MDRD) Af Amer (>60 ml/min/1.73 sqM) Est GFR (MDRD) Non-Af (>60 ml/min/1.73 sqM) Glucose (74-99) mg/dL Calcium (8.4-10.2) mg/dL Magnesium (1.6-2.3) mg/dL Total Bilirubin (0.2-1.3) mg/dL AST (14-36) U/L ALT (9-52) U/L Alkaline Phosphatase (38-126) U/L Total Protein (6.3-8.2) g/dL Albumin (3.5-5.0) g/dL Urine Color Urine Appearance (Clear) Urine pH (5.0-8.0) Ur Specific [place] (1.001-1.035) Urine Protein (Negative) Urine Glucose (UA) (Negative) Urine Ketones (Negative) Urine Blood (Negative) Urine Nitrite (Negative) Urine Bilirubin (Negative) Urine Urobilinogen (<2.0) mg/dL Ur Leukocyte Esterase (Negative) Urine WBC (0-5) /hpf Ur Squamous Epith Cells (0-4) /hpf Urine Bacteria (None) /hpf Urine HCG, Qual (Not Detectd) Disposition Clinical Impression: Generalized seizure Disposition: HOME SELF-CARE Condition: Stable Instructions: Recurrent Seizures in Adults (ED) Additional Instructions: Please follow-up with Dr. Mao this week and obtain Dionra results as well as further recommendations. Please also follow-up to primary care physician. Return for seizures, illness, worsening symptoms or other concerns. No driving until 6 months seizure-free. Referrals: Pawel Garcia MD [Primary Care Provider] - 1-2 days Shagufta Mao MD [STAFF PHYSICIAN] - 1-2 days Time of Disposition: 15:53
[2016-11-02 15:03] LABS: Appearance,Urine Cloudy (Clear); Bacteria,Urine Rare /hpf; Bilirubin,Urine Negative (Negative); Glucose,Urine (UA) Negative (Negative); Ketones,Urine Negative (Negative); Leukocyte Esterase,Urine Trace (Negative); Nitrite,Urine Negative (Negative); PH, Urine 6.5 (5.0-8.0); Particle Count 3283; Protein,Urine Negative (Negative); Specific Gravity,Urine 1.019 (1.001-1.035); Squamous Epithelial Cell,Urine 6 /hpf (0-4); UA Billing (MACRO vs. MICRO) MICRO; Urobilinogen,Urine <2.0 mg/dL (<2.0); WBC,Urine 3 /hpf (0-5)
[2016-11-02 15:12] LABS: ALT 20 U/L (9-52); AST 22 U/L (14-36); Alkaline Phosphatase 42 U/L (38-126); Anion Gap 7 mmol/L; Blood Urea Nitrogen 10 mg/dL (7-17); Carbon Dioxide 23 mmol/L (22-30); Chloride 109 mmol/L (98-107); Glucose 88 mg/dL (74-99); Magnesium 2.1 mg/dL (1.6-2.3); Non-African American GFR(MDRD) >60 (>60 ml/min/1.73 sqM); Sodium 139 mmol/L (137-145); Total Bilirubin 0.4 mg/dL (0.2-1.3); Total Protein 6.5 g/dL (6.3-8.2)
[2016-11-02 15:20] LABS: Basophils # (A) 0.1 k/uL (0-0.2); Basophils % (A) 1 %; CH 31.8; CHCM 34.8; Eosinophils # (A) 0.4 k/uL (0-0.7); Eosinophils % (A) 3 %; HCT 39.1 % (34.0-46.0); HDW 2.35; Luc # (Auto) 0.14; Luc % (Auto) 1; Lymphocytes # (A) 1.1 k/uL (1.0-4.8); Lymphocytes % (A) 10 %; MCH 30.6 pg (25.0-35.0); MCHC 33.2 g/dL (31.0-37.0); Mean Platelet Volume 7.8; Monocytes # (A) 0.4 k/uL (0-1.0); Monocytes % (A) 4 %; Neutrophils # (A) 9.4 k/uL (1.3-7.7); Neutrophils % (A) 82 %; RBC 4.25 m/uL (3.80-5.40); WBC 11.5 k/uL (3.8-10.6); WBC (Perox) 11.38
[2016-11-02 15:22] VITALS: TEMP 97.6
[2016-11-02] MEDS ORDERED: SODIUM CHLORIDE 0.9% 1,000 ML IV ONE (15:23)
[2016-11-02 15:53] VITALS: BP 110/58; PULSE 75; RESP 18
== END 2016-11-02 16:05 | disposition home or self-care (01) ==
LOC: EC 14:03
DX: R56.9 Unspecified convulsions (principal); R40.2140 Coma scale, eyes open, spontaneous, unspecified time; R40.2360 Coma scale, best motor response, obeys commands, unspecified time; R40.2250 Coma scale, best verbal response, oriented, unspecified time; F17.200 Nicotine dependence, unspecified, uncomplicated; Z91.048 Other nonmedicinal substance allergy status
CPT/HCPCS: 36415; 80053; 80177; 81001; 81025; 83735; 85025; 96360; 99284

== ENCOUNTER 2018-06-07 23:41 | Emergency (ER) | payer OTHER ==
[2018-06-08 00:16] VITALS: BP 111/75; PULSE 67; RESP 18; TEMP 97.8
[2018-06-08] MEDS ORDERED: IBUPROFEN 600 MG TAB PO STA (00:31)
[2018-06-08] MEDS ORDERED: HYDROcodone/APAP 5-325MG 1 EACH TAB PO STA (00:31)
--- NOTE | 2018-06-08 00:47 | XR ---
EXAM: XR Right Wrist Complete, 3 or More Views CLINICAL HISTORY: Pain TECHNIQUE: Frontal, lateral and oblique views of the right wrist. COMPARISON: No relevant prior studies available. FINDINGS: Bones/joints: No acute fracture or traumatic malalignment. Plate and screws are noted about the distal radius. Mild degenerative changes of the first CMC joint. Soft tissues: Unremarkable. No radiopaque foreign body. IMPRESSION: No acute findings.
[2018-06-08] MEDS ORDERED: IBUPROFEN 600 MG STARTER PACK 4 TAB BTL PO STA (00:53)
[2018-06-08] MEDS ORDERED: ACET/COD 300 MG/30 MG STARTER PACK 6 TAB BTL PO STA (00:53)
--- NOTE | 2018-06-08 00:54 | ED ---
General Adult HPI - General Chief complaint: Extremity Injury, Upper Stated complaint: Rt Hand Injury Time Seen by Provider: 06/08/18 00:27 Source: patient Mode of arrival: ambulatory Limitations: no limitations - History of Present Illness Initial comments: 32-year-old female patient presents to the emergency department today for evaluation of right wrist pain. Patient states the pain is in her left wrist and is radiating into her thumb, index, and middle fingers. Patient states this started shortly after she moved her bed today. Patient does have a history of fracture to the wrist with insertion of plates and screws. Patient states that she does occasionally get sharp shooting pains after she uses the hand and rest a lot. Patient denies any numbness or tingling to the hand. Denies swelling, fever, or chills. Denies any other injuries or concerns. Patient denies any headache, neck pain, back pain, chest pain, shortness of breath, dizziness, weakness, abdominal pain, nausea, vomiting, or difficulties with bowel movements or urination. - Related Data Home Medications Medication Instructions Recorded Confirmed Ibuprofen [Motrin] 400 mg PO Q6H PRN 07/30/16 11/02/16 Previous Rx's Medication Instructions Recorded levETIRAcetam [Keppra] 1,000 mg PO BID #60 tablet 07/07/16 Ibuprofen [Motrin] 600 mg PO Q8HR PRN #30 tab 06/08/18 Allergies Allergy/AdvReac Type Severity Reaction Status Date / Time adhesive Allergy Rash/Hives Verified 11/02/16 15:06 TAPE AdvReac Itching Uncoded 07/30/16 17:46 Review of Systems ROS Statement: Those systems with pertinent positive or pertinent negative responses have been documented in the HPI. ROS Other: All systems not noted in ROS Statement are negative. Past Medical History Past Medical History: GERD/Reflux, Seizure Disorder, Thyroid Disorder Additional Past Medical History / Comment(s): Seizure DISORDER, LAST 07/06/16. Hypothyroid, UNSURE OF DIAGNOSIS, NO RX YET. History of Any Multi-Drug Resistant Organisms: None Reported Past Surgical History: Orthopedic Surgery Additional Past Surgical History / Comment(s): ORIF RT Hand. ORIF LT Foot. Past Anesthesia/Blood Transfusion Reactions: No Reported Reaction Past Psychological History: Anxiety Smoking Status: Current every day smoker Past Alcohol Use History: None Reported Past Drug Use History: Marijuana - Past Family History Mother Family Medical History: Deep Vein Thrombosis (DVT) Father Family Medical History: Cancer Additional Family Medical History / Comment(s): POSS CANCER General Exam Limitations: no limitations General appearance: alert, in no apparent distress, other (Physical well- developed, well-nourished adult female patient in no acute distress. Vital signs upon presentation are temperature 97.8F, pulse 67, respirations 18, blood pressure 111/75, pulse ox 99% on room air.) Eye exam: Present: normal appearance, PERRL, EOMI. Absent: scleral icterus, conjunctival injection, periorbital swelling ENT exam: Present: normal exam, normal oropharynx Respiratory exam: Present: normal lung sounds bilaterally. Absent: respiratory distress, wheezes, rales, rhonchi, stridor Cardiovascular Exam: Present: regular rate, normal rhythm, normal heart sounds. Absent: systolic murmur, diastolic murmur, rubs, gallop, clicks Extremities exam: Present: full ROM, tenderness (Tenderness over the radial head of the right wrist.), normal capillary refill, other (Skin to the right hand and wrist is pink, warm, dry. Cap refills less than 3 seconds. Radial pulses 2+ and equal bilaterally. Patient does have evidence of well-healed surgical scar to the volar aspect of the right wrist. No swelling or erythema noted. 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 Absent: normal inspection, pedal edema, joint swelling, calf tenderness Neurological exam: Present: alert, oriented X3, CN II-XII intact Psychiatric exam: Present: normal affect, normal mood Skin exam: Present: warm, dry, intact, normal color. Absent: rash Course Vital Signs 06/08/18 00:13 Temperature 97.8 F Pulse Rate 67 Respiratory 18 Rate Blood Pressure 111/75 O2 Sat by Pulse 99 Oximetry Medical Decision Making - Medical Decision Making 32-year-old female patient presented to the emergency department today for evaluation of right wrist pain. Physical examination is relatively unremarkable. Patient does exhibit full range of motion. Neurovascular status is intact. No evidence of swelling or erythema. X-ray was obtained and showed no acute abnormalities however did show presence of plate and screws from previous injury. Patient be discharged with anti-inflammatory pain medication. She is placed in an Dread wrap. She is instructed to follow-up with her primary care physician or her internet specialist for further evaluation as soon as possible. Return parameters were discussed in detail. She verbalizes under standing and agrees with this plan. - Radiology Data Radiology results: report reviewed, image reviewed 3 views of the right wrist are obtained. Report was reviewed in entirety. Impression by Dr. Fonseca shows no acute findings. Disposition Clinical Impression: Strain of right wrist Disposition: HOME SELF-CARE Condition: Good Instructions (If sedation given, give patient instructions): Wrist Injury (ED) Additional Instructions: Take medications as directed. Follow-up with your primary care physician for recheck in 1-2 days. Return to the emergency department immediately for any new, worsening, or concerning symptoms. Prescriptions: Ibuprofen [Motrin] 600 mg PO Q8HR PRN #30 tab PRN Reason: Pain Is patient prescribed a controlled substance at d/c from ED?: No Referrals: Pawel Garcia MD [Primary Care Provider] - 1-2 days Time of Disposition: 00:54
== END 2018-06-08 01:21 | disposition home or self-care (01) ==
LOC: EC 23:41
DX: S66.911A Strain of unspecified muscle, fascia and tendon at wrist and hand level, right hand, initial encounter (principal); M79.644 Pain in right finger(s); F17.200 Nicotine dependence, unspecified, uncomplicated; Z91.048 Other nonmedicinal substance allergy status; Z87.81 Personal history of (healed) traumatic fracture; Z96.698 Presence of other orthopedic joint implants; X50.9XXA Other and unspecified overexertion or strenuous movements or postures, initial encounter; Y92.009 Unspecified place in unspecified non-institutional (private) residence as the place of occurrence of the external cause
CPT/HCPCS: 99283

== ENCOUNTER 2018-06-26 21:30 | Emergency (ER) | payer OTHER ==
[2018-06-26 21:35] VITALS: RESP 16
[2018-06-26] MEDS ORDERED: IBUPROFEN 600 MG TAB PO STA (22:13)
--- NOTE | 2018-06-26 22:56 | XR ---
EXAM: XR Right Wrist Complete, 3 or More Views CLINICAL HISTORY: ITS.REASON XR Reason: Pain TECHNIQUE: Frontal, lateral and oblique views of the right wrist. COMPARISON: 06/08/18. FINDINGS: Bones/joints: No acute fracture. Degenerative and postsurgical changes similar to prior. Soft tissues: No radiopaque foreign body. IMPRESSION: No acute fracture. No significant change.
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
--- NOTE | 2018-06-26 23:08 | XR ---
EXAM: XR Right Hand Complete, 3 or More Views CLINICAL HISTORY: ITS.REASON XR Reason: Pain TECHNIQUE: Frontal, lateral and oblique views of the right hand. COMPARISON: 07/20/13. FINDINGS: Bones/joints: No acute fracture. Degenerative and postsurgical changes similar to prior. Soft tissues: No radiopaque foreign body. IMPRESSION: No acute fracture.
[2018-06-26 23:56] VITALS: BP 128/70; PULSE 88; TEMP 97.9
== END 2018-06-26 23:56 | disposition home or self-care (01) ==
LOC: EC 21:30
DX: G56.01 Carpal tunnel syndrome, right upper limb (principal); F17.200 Nicotine dependence, unspecified, uncomplicated; Z91.048 Other nonmedicinal substance allergy status
CPT/HCPCS: 99284

== ENCOUNTER 2018-11-22 22:22 | Emergency (ER) | payer OTHER ==
[2018-11-22 22:33] VITALS: TEMP 98.2
[2018-11-22] MEDS ORDERED: FAMOTIDINE 20 MG/2 ML VIAL IV STA (23:04)
[2018-11-22] MEDS ORDERED: SODIUM CHLORIDE 0.9% 1,000 ML IV STA (23:04)
[2018-11-22] MEDS ORDERED: ONDANSETRON 4 MG/2 ML VIAL IVP STA (23:04)
[2018-11-22] MEDS ORDERED: KETOROLAC 30 MG/ML 1 ML VIAL IVP STA (23:04)
[2018-11-22 23:20] LABS: Appearance,Urine Clear (Clear); Bilirubin,Urine Negative (Negative); Blood,Urine Negative (Negative); Color,Urine Light Yellow; Glucose,Urine (UA) Negative (Negative); Ketones,Urine Negative (Negative); Leukocyte Esterase,Urine Negative (Negative); Nitrite,Urine Negative (Negative); PH, Urine 5.5 (5.0-8.0); Protein,Urine Negative (Negative); Specific Gravity,Urine 1.012 (1.001-1.035); Urobilinogen,Urine <2.0 mg/dL (<2.0)
[2018-11-22 23:21] LABS: Basophils # (A) 0.1 k/uL (0-0.2); Basophils % (A) 1 %; Eosinophils # (A) 0.7 k/uL (0-0.7); Eosinophils % (A) 10 %; HCT 36.1 % (34.0-46.0); HGB 12.2 gm/dL (11.4-16.0); Lymphocytes % (A) 27 %; MCH 29.6 pg (25.0-35.0); MCHC 33.8 g/dL (31.0-37.0); MCV 87.6 fL (80.0-100.0); Mean Platelet Volume 8.2; Monocytes # (A) 0.4 k/uL (0-1.0); Monocytes % (A) 5 %; Neutrophils # (A) 4.1 k/uL (1.3-7.7); Neutrophils % (A) 56 %; Platelet Count 238 k/uL (150-450); RBC 4.12 m/uL (3.80-5.40); WBC 7.4 k/uL (3.8-10.6)
[2018-11-22 23:28] LABS: ALT 15 U/L (9-52); AST 18 U/L (14-36); African American GFR (CKD) >90 (>60 ml/min/1.73 sqM); Albumin 3.9 g/dL (3.5-5.0); Alkaline Phosphatase 50 U/L (38-126); Amylase 71 U/L (30-110); Anion Gap 8 mmol/L; Blood Urea Nitrogen 16 mg/dL (7-17); Calcium 9.1 mg/dL (8.4-10.2); Carbon Dioxide 21 mmol/L (22-30); Chloride 109 mmol/L (98-107); Glucose 87 mg/dL (74-99); Potassium 3.5 mmol/L (3.5-5.1); Sodium 138 mmol/L (137-145); Total Bilirubin 0.3 mg/dL (0.2-1.3)
--- NOTE | 2018-11-22 23:39 | XR ---
EXAMINATION TYPE: XR KUB DATE OF EXAM: 11/22/2018 COMPARISON: NONE HISTORY: Epigastric pain TECHNIQUE: 2 views upright FINDINGS: There is no sign of intestinal obstruction or pneumoperitoneum. Fecal pattern is normal. Th ere are clips from cholecystectomy. There is 3 x 1 cm amorphous calcification right lower quadrant of uncertain significance. IMPRESSION: Nonacute abdomen. Unusual abdominal calcification on the right side was in the midline on the old abdomen x-ray of 10/20/2013 and is of uncertain significance.
[2018-11-23 00:07] VITALS: PULSE 63; RESP 18
--- NOTE | 2018-11-23 00:08 | ED ---
Abdominal Pain HPI - General Chief Complaint: Abdominal Pain Stated Complaint: Vomiting Time Seen by Provider: 11/22/18 22:51 Source: patient Mode of arrival: ambulatory Limitations: no limitations - History of Present Illness Initial Comments: 33-year-old female patient presents to the emergency department today for evaluation of vomiting upper abdominal discomfort. Patient states symptoms started around 8 PM this evening. States she's had 3 episodes of vomiting. States that she is having some discomfort to the midepigastric region. Denies any radiation of the pain through to her back. Denies any constipation or diarrhea. Denies any hematochezia, melena, or hematemesis. She denies any sick contacts or recent travel. Denies fever or chills. Last period was 2 weeks ago. Patient denies any recent rash, shortness breath, chest pain, numbness, tingling, dizziness, weakness, hematuria, dysuria, urinary urgency, urinary frequency, headache, visual changes, or any other complaints. - Related Data Home Medications Medication Instructions Recorded Confirmed Diclofenac Sodium [Voltaren] 75 mg PO BID 11/22/18 11/22/18 Previous Rx's Medication Instructions Recorded levETIRAcetam [Keppra] 1,000 mg PO BID #60 tablet 07/07/16 Ondansetron [Zofran ODT] 4 mg PO Q8HR PRN #20 tab 11/23/18 Allergies Allergy/AdvReac Type Severity Reaction Status Date / Time adhesive Allergy Rash/Hives Verified 11/22/18 22:33 PAPER TAPE Allergy Rash/Hives Uncoded 11/22/18 22:50 TAPE AdvReac Itching Uncoded 11/22/18 22:50 Review of Systems ROS Statement: Those systems with pertinent positive or pertinent negative responses have been documented in the HPI. ROS Other: All systems not noted in ROS Statement are negative. Past Medical History Past Medical History: GERD/Reflux, Seizure Disorder, Thyroid Disorder Additional Past Medical History / Comment(s): Seizure DISORDER, LAST 07/06/16. Hypothyroid, UNSURE OF DIAGNOSIS, NO RX YET. History of Any Multi-Drug Resistant Organisms: None Reported Past Surgical History: Orthopedic Surgery Additional Past Surgical History / Comment(s): ORIF RT Hand. ORIF LT Foot. Past Anesthesia/Blood Transfusion Reactions: No Reported Reaction Past Psychological History: Anxiety Smoking Status: Current every day smoker Past Alcohol Use History: None Reported Past Drug Use History: Marijuana - Past Family History Mother Family Medical History: Deep Vein Thrombosis (DVT) Father Family Medical History: Cancer Additional Family Medical History / Comment(s): POSS CANCER General Exam Limitations: no limitations General appearance: alert, in no apparent distress, other (This is a well-developed, well-nourished adult female patient in no acute distress. Vital signs upon presentation are temperature 98.2F, pulse 68, respiration 16, blood pressure 101/71, pulse ox 98% on room air.) Eye exam: Present: normal appearance, PERRL, EOMI. Absent: scleral icterus, conjunctival injection, periorbital swelling ENT exam: Present: normal exam, normal oropharynx, mucous membranes moist Respiratory exam: Present: normal lung sounds bilaterally. Absent: respiratory distress, wheezes, rales, rhonchi, stridor Cardiovascular Exam: Present: regular rate, normal rhythm, normal heart sounds. Absent: systolic murmur, diastolic murmur, rubs, gallop, clicks GI/Abdominal exam: Present: soft, tenderness (Mild midepigastric tenderness), normal bowel sounds. Absent: distended, guarding, rebound, rigid Neurological exam: Present: alert, oriented X3, CN II-XII intact Psychiatric exam: Present: normal affect, normal mood Skin exam: Present: warm, dry, intact, normal color. Absent: rash Course Vital Signs 11/22/18 11/23/18 11/23/18 22:29 00:04 00:17 Temperature 98.2 F 98.2 F 98.2 F Pulse Rate 68 63 63 Respiratory 16 18 18 Rate Blood Pressure 101/71 98/60 101/70 O2 Sat by Pulse 98 96 96 Oximetry Medical Decision Making - Medical Decision Making 33-year-old female patient presented to the emergency department today for evaluation of vomiting and midepigastric discomfort. Physical examination did reveal mild midepigastric tenderness. Labs reviewed and are unremarkable. KUB x-ray was unremarkable, there was an unusual abdominal calcification which I did discuss with the patient she is going to discuss this with her primary care physician. Patient was given IV fluids and nausea medication here in the emergency department. Upon reevaluation she reports improvement of symptoms. She does feel comfortable being discharged home at this time to follow-up with her primary care physician. She'll be given a prescription for Zofran. She is instructed to follow-up 1-2 days. Return parameters were discussed in detail. She verbalizes understanding and agrees with this plan. - Lab Data Result diagrams: 11/22/18 22:55 11/22/18 22:55 Lab Results 11/22/18 11/22/18 11/22/18 Range/Units 22:55 22:55 22:55 WBC 7.4 (3.8-10.6) k/uL RBC 4.12 (3.80-5.40) m/uL Hgb 12.2 (11.4-16.0) gm/dL Hct 36.1 (34.0-46.0) % MCV 87.6 (80.0-100.0) fL MCH 29.6 (25.0-35.0) pg MCHC 33.8 (31.0-37.0) g/dL RDW 16.0 H (11.5-15.5) % Plt Count 238 (150-450) k/uL Neutrophils % 56 % Lymphocytes % 27 % Monocytes % 5 % Eosinophils % 10 % Basophils % 1 % Neutrophils # 4.1 (1.3-7.7) k/uL Lymphocytes # 2.0 (1.0-4.8) k/uL Monocytes # 0.4 (0-1.0) k/uL Eosinophils # 0.7 (0-0.7) k/uL Basophils # 0.1 (0-0.2) k/uL Sodium 138 (137-145) mmol/L Potassium 3.5 (3.5-5.1) mmol/L Chloride 109 H (98-107) mmol/L Carbon Dioxide 21 L (22-30) mmol/L Anion Gap 8 mmol/L BUN 16 (7-17) mg/dL Creatinine 0.85 (0.52-1.04) mg/dL Est GFR (CKD-EPI)AfAm >90 (>60 ml/min/1.73 sqM) Est GFR (CKD-EPI)NonAf >90 (>60 ml/min/1.73 sqM) Glucose 87 (74-99) mg/dL Calcium 9.1 (8.4-10.2) mg/dL Total Bilirubin 0.3 (0.2-1.3) mg/dL AST 18 (14-36) U/L ALT 15 (9-52) U/L Alkaline Phosphatase 50 (38-126) U/L Troponin I <0.012 (0.000-0.034) ng/mL Total Protein 7.0 (6.3-8.2) g/dL Albumin 3.9 (3.5-5.0) g/dL Amylase 71 (30-110) U/L Lipase 184 (23-300) U/L Urine Color Urine Appearance (Clear) Urine pH (5.0-8.0) Ur Specific [place] (1.001-1.035) Urine Protein (Negative) Urine Glucose (UA) (Negative) Urine Ketones (Negative) Urine Blood (Negative) Urine Nitrite (Negative) Urine Bilirubin (Negative) Urine Urobilinogen (<2.0) mg/dL Ur Leukocyte Esterase (Negative) Urine HCG, Qual (Not Detectd) 11/22/18 11/22/18 Range/Units 22:55 22:55 WBC (3.8-10.6) k/uL RBC (3.80-5.40) m/uL Hgb (11.4-16.0) gm/dL Hct (34.0-46.0) % MCV (80.0-100.0) fL MCH (25.0-35.0) pg MCHC (31.0-37.0) g/dL RDW (11.5-15.5) % Plt Count (150-450) k/uL Neutrophils % % Lymphocytes % % Monocytes % % Eosinophils % % Basophils % % Neutrophils # (1.3-7.7) k/uL Lymphocytes # (1.0-4.8) k/uL Monocytes # (0-1.0) k/uL Eosinophils # (0-0.7) k/uL Basophils # (0-0.2) k/uL Sodium (137-145) mmol/L Potassium (3.5-5.1) mmol/L Chloride (98-107) mmol/L Carbon Dioxide (22-30) mmol/L Anion Gap mmol/L BUN (7-17) mg/dL Creatinine (0.52-1.04) mg/dL Est GFR (CKD-EPI)AfAm (>60 ml/min/1.73 sqM) Est GFR (CKD-EPI)NonAf (>60 ml/min/1.73 sqM) Glucose (74-99) mg/dL Calcium (8.4-10.2) mg/dL Total Bilirubin (0.2-1.3) mg/dL AST (14-36) U/L ALT (9-52) U/L Alkaline Phosphatase (38-126) U/L Troponin I (0.000-0.034) ng/mL Total Protein (6.3-8.2) g/dL Albumin (3.5-5.0) g/dL Amylase (30-110) U/L Lipase (23-300) U/L Urine Color Light Yellow Urine Appearance Clear (Clear) Urine pH 5.5 (5.0-8.0) Ur Specific [place] 1.012 (1.001-1.035) Urine Protein Negative (Negative) Urine Glucose (UA) Negative (Negative) Urine Ketones Negative (Negative) Urine Blood Negative (Negative) Urine Nitrite Negative (Negative) Urine Bilirubin Negative (Negative) Urine Urobilinogen <2.0 (<2.0) mg/dL Ur Leukocyte Esterase Negative (Negative) Urine HCG, Qual Not Detected (Not Detectd) - EKG Data -: EKG Interpreted by Me EKG Comments: EKG obtained at 2315 shows normal sinus rhythm with a ventricular rate of 60, AK interval 190, QRS duration 78, QT 422, QTc 422. No evidence of ST elevation or depression. - Radiology Data Radiology results: report reviewed, image reviewed 2 views of the abdomen are obtained. Report was reviewed in its entirety. Impression by Dr. Goncalves shows nonacute abdomen. Unusual, calcification of the right side was in the midline on the old abdomen x-ray of 10/20/2013 and is of uncertain significance. Disposition Clinical Impression: Acute vomiting Disposition: HOME SELF-CARE Condition: Good Instructions (If sedation given, give patient instructions): Acute Nausea and Vomiting (ED) Additional Instructions: Take medications as directed. Start with clear liquid diet and advance as tolerated. Follow-up with your primary care physician for recheck in 1-2 days. Return to the emergency department immediately for any new, worsening, or concerning symptoms. Prescriptions: Ondansetron [Zofran ODT] 4 mg PO Q8HR PRN #20 tab PRN Reason: Nausea Is patient prescribed a controlled substance at d/c from ED?: No Referrals: Pawel Garcia MD [Primary Care Provider] - 1-2 days Time of Disposition: 00:08
[2018-11-23 00:18] VITALS: BP 101/70
== END 2018-11-23 00:17 | disposition home or self-care (01) ==
LOC: EC 22:22
DX: R11.10 Vomiting, unspecified (principal); R10.816 Epigastric abdominal tenderness; R10.10 Upper abdominal pain, unspecified; R10.13 Epigastric pain; Z32.02 Encounter for pregnancy test, result negative; F17.200 Nicotine dependence, unspecified, uncomplicated; Z79.899 Other long term (current) drug therapy; Z91.048 Other nonmedicinal substance allergy status; Z91.09 Other allergy status, other than to drugs and biological substances
CPT/HCPCS: 36415; 93005; 80053; 82150; 83690; 84484; 85025; 81003; 81025; 74018; 99284; 96374; 96375 ×2; 96361; J2405; J1885

== ENCOUNTER → 2018-11-25 | Outpatient (CLI) | payer OTHER ==
--- NOTE | 2018-11-26 07:48 | CT ---
EXAMINATION TYPE: CT abdomen pelvis w con DATE OF EXAM: 11/25/2018 COMPARISON: 10/20/2013 INDICATION: pain, abn xray, possible mass DLP: 547.3 mGycm, Automated exposure control for dose reduction was used. CONTRAST: 100 mL of Isovue 300. Study performed with Oral Contrast TECHNIQUE: Axial images were obtained from above the diaphragm to the pubic rami in the axial plane a t 5 mm thick sections. Reconstructed images are reviewed on the computer in the coronal plane. FINDINGS: Limited CT sections are obtained the lung bases. The lung bases are clear. CT ABDOMEN: Liver: Normal Spleen: Normal Pancreas: Normal Adrenal glands: The adrenal glands are normal. Gallbladder: Surgically absent Kidneys: No masses are evident. Mild bilateral hydronephrosis is present. There is a 1.2 cm cyst in t he posterior inferior right kidney measuring 7 Hounsfield units. Delayed images were obtained throug h the kidneys, which remain unremarkable. Aorta: Normal Inferior vena cava: Normal. CT PELVIS: Loops of bowel within the abdomen and pelvis are normal. There are loops of bowel which are incom pletely distended or lack oral contrast limiting their evaluation. Appendix: Normal as visualized. Urinary bladder: Normal. Genitourinary structures: Uterus is in the posterior right hemipelvis. There is a large septated comp sis mass within the mid pelvis extending into the midabdomen level, displacing structures away. This is heterogenous and contains dense calcification of some fat areas of fluid attenuation. Findings lik rudolph represent a dermoid. This has enlarged over the interval and currently measures 10.0 x 12.4 x 17. 1 cm. Osseous structures: No suspicious lytic or sclerotic lesions. IMPRESSIONS: 1. Enlarging complex heterogenous mass within the pelvis suggestive for a dermoid. This has increase d in size from 2013.
== END | disposition home or self-care (01) ==
LOC: RADCTMAIN 11-24 12:28
PROVIDERS: ATTEND Family Medicine
DX: R19.00 Intra-abdominal and pelvic swelling, mass and lump, unspecified site (principal); R10.9 Unspecified abdominal pain
CPT/HCPCS: 74177; Q9967 ×2

== ENCOUNTER 2020-03-06 15:09 | Emergency (ER) | payer OTHER ==
[2020-03-06 15:17] VITALS: RESP 18
[2020-03-06] MEDS ORDERED: SODIUM CHLORIDE 0.9% 1,000 ML IV STA (15:35)
[2020-03-06] MEDS ORDERED: LORazepam 2 MG/ML INJ IV STA (15:35)
[2020-03-06] MEDS ORDERED: levETIRAcetam IV 500 MG in SODIUM CHLORIDE 0.9% 100 ML IVPB STA (15:40)
--- NOTE | 2020-03-06 15:41 | ED ---
General Adult HPI - General Chief complaint: Seizure Stated complaint: seizure Time Seen by Provider: 03/06/20 15:11 Source: EMS Mode of arrival: EMS Limitations: no limitations - History of Present Illness Initial comments: 34-year-old female with a past medical history of seizure disorder with last seizure about one year ago, GERD, hypothyroidism presents to the emergency room for chief light of seizure. Patient had a witnessed seizure lasting a couple minutes approximately. She did not bite her tongue. She takes 1000 mg of Keppra twice daily. Patient does state that she took this today. She follows up with Dr. Pawel Garcia for her seizures. She has had a workup for this in the past with Dr. Mao. She denies any injuries or pain. She does have a headache which she normally gets after her seizures. Patient feels back to her baseline at this time aside from headache. Patient has no other complaints at this time including shortness of breath, chest pain, abdominal pain, nausea or vomiting, or visual changes. - Related Data Home Medications Medication Instructions Recorded Confirmed ALPRAZolam [Xanax] 0.5 mg PO DAILY PRN 03/06/20 03/06/20 Albuterol Inhaler [Ventolin Hfa 2 puff INHALATION RT-QID PRN 03/06/20 03/06/20 Inhaler] Previous Rx's Medication Instructions Recorded levETIRAcetam [Keppra] 1,000 mg PO BID #60 tablet 07/07/16 Allergies Allergy/AdvReac Type Severity Reaction Status Date / Time adhesive Allergy Rash/Hives Verified 03/06/20 16:05 PAPER TAPE Allergy Rash/Hives Uncoded 03/06/20 16:05 TAPE Allergy Itching Uncoded 03/06/20 16:05 Review of Systems ROS Statement: Those systems with pertinent positive or pertinent negative responses have been documented in the HPI. ROS Other: All systems not noted in ROS Statement are negative. Past Medical History Past Medical History: GERD/Reflux, Seizure Disorder, Thyroid Disorder Additional Past Medical History / Comment(s): Seizure DISORDER, LAST 07/06/16. Hypothyroid, UNSURE OF DIAGNOSIS, NO RX YET. History of Any Multi-Drug Resistant Organisms: None Reported Past Surgical History: Orthopedic Surgery Additional Past Surgical History / Comment(s): ORIF RT Hand. ORIF LT Foot. Past Anesthesia/Blood Transfusion Reactions: No Reported Reaction Past Psychological History: Anxiety Smoking Status: Current every day smoker Past Alcohol Use History: None Reported Past Drug Use History: Marijuana - Past Family History Mother Family Medical History: Deep Vein Thrombosis (DVT) Father Family Medical History: Cancer Additional Family Medical History / Comment(s): POSS CANCER General Exam Limitations: no limitations General appearance: alert, in no apparent distress Head exam: Present: atraumatic, normocephalic, normal inspection Eye exam: Present: normal appearance, PERRL, EOMI ENT exam: Present: normal exam, mucous membranes moist Neck exam: Present: normal inspection, full ROM. Absent: tenderness Respiratory exam: Present: normal lung sounds bilaterally. Absent: respiratory distress, wheezes, rales, rhonchi, stridor Cardiovascular Exam: Present: regular rate, normal rhythm, normal heart sounds. Absent: systolic murmur, diastolic murmur, rubs, gallop, clicks GI/Abdominal exam: Present: soft, normal bowel sounds. Absent: distended, tenderness, guarding, rebound, rigid Neurological exam: Present: alert, oriented X3 Course Vital Signs 03/06/20 03/06/20 15:14 18:08 Temperature 97.8 F 98 F Pulse Rate 84 66 Respiratory 18 18 Rate Blood Pressure 123/54 110/65 O2 Sat by Pulse 97 100 Oximetry EKG Findings - EKG Comments: EKG Findings:: Normal sinus rhythm, ventricular rate 79, NJ interval 178, QTC 421 Medical Decision Making - Medical Decision Making Vitals are stable. HPI and physical exam as documented. Patient is well-a ppearing. She has a seizure history and takes Keppra. Physical exam is unremarkable. No focal neurologic deficits. Patient did hit her head has a small hematoma noted to the left forehead. CBC CMP unremarkable. Urinalysis unremarkable. Urine tox screen does show benzos and marijuana. CT brain C- spine was negative as patient did have a small hematoma to the left forehead. Patient was given Ativan and Keppra. Patient can be discharged home to follow up with her doctor Dr. Garcia as this is to treat her seizure disorder. She will return here for any worsening symptoms. I discussed this case with attending Dr. Mendoza who agrees with this assessment and treatment plan. - Lab Data Result diagrams: 03/06/20 15:42 03/06/20 15:42 Lab Results 03/06/20 03/06/20 03/06/20 Range/Units 15:42 15:42 15:48 WBC 9.0 (3.8-10.6) k/uL RBC 4.44 (3.80-5.40) m/uL Hgb 13.4 (11.4-16.0) gm/dL Hct 41.0 (34.0-46.0) % MCV 92.3 (80.0-100.0) fL MCH 30.2 (25.0-35.0) pg MCHC 32.7 (31.0-37.0) g/dL RDW 14.1 (11.5-15.5) % Plt Count 407 (150-450) k/uL MPV 7.0 Neutrophils % 57 % Lymphocytes % 21 % Monocytes % 5 % Eosinophils % 14 % Basophils % 1 % Neutrophils # 5.1 (1.3-7.7) k/uL Lymphocytes # 1.9 (1.0-4.8) k/uL Monocytes # 0.5 (0-1.0) k/uL Eosinophils # 1.3 H (0-0.7) k/uL Basophils # 0.1 (0-0.2) k/uL Sodium 138 (137-145) mmol/L Potassium 4.5 (3.5-5.1) mmol/L Chloride 108 H (98-107) mmol/L Carbon Dioxide 21 L (22-30) mmol/L Anion Gap 9 mmol/L BUN 11 (7-17) mg/dL Creatinine 0.78 (0.52-1.04) mg/dL Est GFR (CKD-EPI)AfAm >90 (>60 ml/min/1.73 sqM) Est GFR (CKD-EPI)NonAf >90 (>60 ml/min/1.73 sqM) Glucose 98 (74-99) mg/dL Calcium 9.3 (8.4-10.2) mg/dL Total Bilirubin 0.4 (0.2-1.3) mg/dL AST 20 (14-36) U/L ALT 11 (4-34) U/L Alkaline Phosphatase 53 (38-126) U/L Total Protein 7.3 (6.3-8.2) g/dL Albumin 4.1 (3.5-5.0) g/dL Urine Color Yellow Urine Appearance Cloudy H (Clear) Urine pH 5.5 (5.0-8.0) Ur Specific [place] 1.020 (1.001-1.035) Urine Protein 1+ H (Negative) Urine Glucose (UA) Negative (Negative) Urine Ketones 1+ H (Negative) Urine Blood Small H (Negative) Urine Nitrite Negative (Negative) Urine Bilirubin Negative (Negative) Urine Urobilinogen <2.0 (<2.0) mg/dL Ur Leukocyte Esterase Negative (Negative) Urine RBC 5 (0-5) /hpf Urine WBC 5 (0-5) /hpf Ur Squamous Epith Cells 6 H (0-4) /hpf Urine Mucus Few H (None) /hpf Urine HCG, Qual (Not Detectd) Urine Opiates Screen Not Detected (NotDetected) Ur Oxycodone Screen Not Detected (NotDetected) Urine Methadone Screen Not Detected (NotDetected) Ur Propoxyphene Screen Not Detected (NotDetected) Ur Barbiturates Screen Not Detected (NotDetected) U Tricyclic Antidepress Not Detected (NotDetected) Ur Phencyclidine Scrn Not Detected (NotDetected) Ur Amphetamines Screen Not Detected (NotDetected) U Methamphetamines Scrn Not Detected (NotDetected) U Benzodiazepines Scrn Detected H (NotDetected) Urine Cocaine Screen Not Detected (NotDetected) U Marijuana (THC) Screen Detected H (NotDetected) Serum Alcohol <10 mg/dL 03/06/20 Range/Units 15:48 WBC (3.8-10.6) k/uL RBC (3.80-5.40) m/uL Hgb (11.4-16.0) gm/dL Hct (34.0-46.0) % MCV (80.0-100.0) fL MCH (25.0-35.0) pg MCHC (31.0-37.0) g/dL RDW (11.5-15.5) % Plt Count (150-450) k/uL MPV Neutrophils % % Lymphocytes % % Monocytes % % Eosinophils % % Basophils % % Neutrophils # (1.3-7.7) k/uL Lymphocytes # (1.0-4.8) k/uL Monocytes # (0-1.0) k/uL Eosinophils # (0-0.7) k/uL Basophils # (0-0.2) k/uL Sodium (137-145) mmol/L Potassium (3.5-5.1) mmol/L Chloride (98-107) mmol/L Carbon Dioxide (22-30) mmol/L Anion Gap mmol/L BUN (7-17) mg/dL Creatinine (0.52-1.04) mg/dL Est GFR (CKD-EPI)AfAm (>60 ml/min/1.73 sqM) Est GFR (CKD-EPI)NonAf (>60 ml/min/1.73 sqM) Glucose (74-99) mg/dL Calcium (8.4-10.2) mg/dL Total Bilirubin (0.2-1.3) mg/dL AST (14-36) U/L ALT (4-34) U/L Alkaline Phosphatase (38-126) U/L Total Protein (6.3-8.2) g/dL Albumin (3.5-5.0) g/dL Urine Color Urine Appearance (Clear) Urine pH (5.0-8.0) Ur Specific [place] (1.001-1.035) Urine Protein (Negative) Urine Glucose (UA) (Negative) Urine Ketones (Negative) Urine Blood (Negative) Urine Nitrite (Negative) Urine Bilirubin (Negative) Urine Urobilinogen (<2.0) mg/dL Ur Leukocyte Esterase (Negative) Urine RBC (0-5) /hpf Urine WBC (0-5) /hpf Ur Squamous Epith Cells (0-4) /hpf Urine Mucus (None) /hpf Urine HCG, Qual Not Detected (Not Detectd) Urine Opiates Screen (NotDetected) Ur Oxycodone Screen (NotDetected) Urine Methadone Screen (NotDetected) Ur Propoxyphene Screen (NotDetected) Ur Barbiturates Screen (NotDetected) U Tricyclic Antidepress (NotDetected) Ur Phencyclidine Scrn (NotDetected) Ur Amphetamines Screen (NotDetected) U Methamphetamines Scrn (NotDetected) U Benzodiazepines Scrn (NotDetected) Urine Cocaine Screen (NotDetected) U Marijuana (THC) Screen (NotDetected) Serum Alcohol mg/dL Disposition Clinical Impression: Recurrent seizures Disposition: HOME SELF-CARE Condition: Good Instructions (If sedation given, give patient instructions): Recurrent Seizures in Adults (ED) Additional Instructions: Please continue to take your Keppra. Please follow up closely with Dr. Garcia. Please return to the emergency room for any worsening symptoms or additional seizures. Is patient prescribed a controlled substance at d/c from ED?: No Referrals: Pawel Garcia MD [Primary Care Provider] - 1-2 days Time of Disposition: 17:50
[2020-03-06 15:47] LABS: Basophils # (A) 0.1 k/uL (0-0.2); Basophils % (A) 1 %; Eosinophils # (A) 1.3 k/uL (0-0.7); Eosinophils % (A) 14 %; HGB 13.4 gm/dL (11.4-16.0); Lymphocytes # (A) 1.9 k/uL (1.0-4.8); Lymphocytes % (A) 21 %; MCH 30.2 pg (25.0-35.0); MCHC 32.7 g/dL (31.0-37.0); MCV 92.3 fL (80.0-100.0); Monocytes # (A) 0.5 k/uL (0-1.0); Monocytes % (A) 5 %; Neutrophils # (A) 5.1 k/uL (1.3-7.7); Neutrophils % (A) 57 %; Platelet Count 407 k/uL (150-450); RBC 4.44 m/uL (3.80-5.40); RDW 14.1 % (11.5-15.5)
[2020-03-06 15:58] LABS: ALT 11 U/L (4-34); AST 20 U/L (14-36); African American GFR (CKD) >90 (>60 ml/min/1.73 sqM); Albumin 4.1 g/dL (3.5-5.0); Alcohol <10 mg/dL; Alkaline Phosphatase 53 U/L (38-126); Anion Gap 9 mmol/L; Blood Urea Nitrogen 11 mg/dL (7-17); Calcium 9.3 mg/dL (8.4-10.2); Carbon Dioxide 21 mmol/L (22-30); Chloride 108 mmol/L (98-107); Glucose 98 mg/dL (74-99); Non-African American GFR(CKD) >90 (>60 ml/min/1.73 sqM); Potassium 4.5 mmol/L (3.5-5.1); Sodium 138 mmol/L (137-145); Total Bilirubin 0.4 mg/dL (0.2-1.3); Total Protein 7.3 g/dL (6.3-8.2)
[2020-03-06 16:01] LABS: Appearance,Urine Cloudy (Clear); Bilirubin,Urine Negative (Negative); Blood,Urine Small (Negative); Color,Urine Yellow; Glucose,Urine (UA) Negative (Negative); Ketones,Urine 1+ (Negative); Leukocyte Esterase,Urine Negative (Negative); Mucus,Urine Few /hpf; Nitrite,Urine Negative (Negative); PH, Urine 5.5 (5.0-8.0); Protein,Urine 1+ (Negative); RBC,Urine 5 /hpf (0-5); Squamous Epithelial Cell,Urine 6 /hpf (0-4); Urobilinogen,Urine <2.0 mg/dL (<2.0); WBC,Urine 5 /hpf (0-5)
[2020-03-06 16:09] LABS: Amphetamine Screen,Urine Not Detected (NotDetected); Barbiturate Screen,Urine Not Detected (NotDetected); Benzodiazepines Screen,Urine Detected (NotDetected); Cocaine Screen,Urine Not Detected (NotDetected); Methadone Screen, Urine Not Detected (NotDetected); Opiate Screen,Urine Not Detected (NotDetected); Oxycodone Screen, Urine Not Detected (NotDetected); Phencyclidine Screen,Urine Not Detected (NotDetected); Tricyclic Antidepressant,Urine Not Detected (NotDetected); Urn Cannabinoid Scrn Detected (NotDetected)
--- NOTE | 2020-03-06 17:11 | CT ---
EXAMINATION TYPE: CT brain meliza wo con DATE OF EXAM: 03/06/2020 COMPARISON: 07/06/2016 HISTORY: Seizure with head injury. CT DLP: 1409.3 mGycm Automated exposure control for dose reduction was used. TECHNIQUE: CT scan of the head and cervical spine are performed without contrast. FINDINGS: There is no acute intracranial hemorrhage, mass effect, or midline shift identified. Subt le nonspecific low attenuation seen within the posterior ramirez radiata and centrum semiovale bilater ally, stable. The ventricles and sulci are within normal limits in size. The globes are intact and t he visualized sinuses are clear. Cervical spine is visualized in its entirety from C1 through upper thoracic levels and demonstrates s atisfactory alignment without evidence of acute fracture or dislocation. Prevertebral soft tissue ap pears within normal limits. The C1-C2 articulation is unremarkable. IMPRESSION: 1. No acute cranial/intracranial process; stable appearance when compared to 07/06/2016 CT. 2. Cervical spine: Negative for fracture or malalignment.
[2020-03-06 18:09] VITALS: BP 110/65; PULSE 66; TEMP 98
== END 2020-03-06 18:10 | disposition home or self-care (01) ==
LOC: EC 15:09
DX: G40.909 Epilepsy, unspecified, not intractable, without status epilepticus (principal); S00.83XA Contusion of other part of head, initial encounter; F41.9 Anxiety disorder, unspecified; F17.200 Nicotine dependence, unspecified, uncomplicated; Z91.048 Other nonmedicinal substance allergy status; W19.XXXA Unspecified fall, initial encounter; Y92.009 Unspecified place in unspecified non-institutional (private) residence as the place of occurrence of the external cause
CPT/HCPCS: 36415; 93005; 80053; 85025; 81001; 81025; 80306; 72125; 70450; 99284; 96365; 96366; 96375; G0480; J2060; J1953; 80320

== ENCOUNTER 2020-07-11 11:34 | Observation (INO) | payer OTHER ==
[2020-07-11 12:18] VITALS: BP 119/80; PULSE 86; RESP 18; TEMP 99.3
[2020-07-11] MEDS ORDERED: ALPRAZolam 0.5 MG TAB PO PRN (13:03)
[2020-07-11] MEDS ORDERED: SODIUM CHLORIDE 0.9% 1,000 ML IV SCH (13:15)
[2020-07-11] MEDS ORDERED: HYDROmorphone 0.5 MG/0.5 ML SYRINGE IVP PRN (14:46)
--- NOTE | 2020-07-11 15:01 | P.GSCN ---
History of Present Illness Consult date: 07/11/20 History of present illness: CHIEF COMPLAINT: Abdominal pain HISTORY OF PRESENT ILLNESS: This is a 34-year-old female with a known history of dermoid mass of the pelvis, seizures, hypothyroidism and nicotine dependence. Patient was a direct admit from Dr. Garcia's office due to abdominal pain and an outpatient computed tomography scan of the abdomen and pelvis that showed a large benign appearing mass in the lower abdomen and pelvis with fluid, fat and calcific density and most likely represents a benign dermoid. It was present on prior study but is slightly larger in size. It is currently measuring 17 x 12 x 12 cm. The previous measurement was 17 x 12.4 x [address] scan in 2019. Surgical service was consulted in regards to her abdominal pain and dermoid mass. Patient is currently lying in bed comfortably. She does complain of some right-sided abdominal pain. Her abdomen is soft. She has been seen by [facility] service and they're recommending a transfer to [facility]. Patient denies any nausea vomiting. She is having bowel movements. Denies any fever chills or sweats. Patient seen and examined with Dr. mcwilliams PAST MEDICAL HISTORY: See list. PAST SURGICAL HISTORY: See list. MEDICATIONS: See list. ALLERGIES: See list. SOCIAL HISTORY: No illicit drug use. REVIEW OF SYSTEMS: CONSTITUTIONAL: Denies fever or chills. HEENT: Denies blurred vision, vision changes, or eye pain. Denies hemoptysis CARDIOVASCULAR: Denies chest pain or pressure. RESPIRATORY: No shortness of breath. GASTROINTESTINAL: See HPI for pertinent findings HEMATOLOGIC: Denies bleeding disorders. GENITOURINARY: Denies any blood in urine or increased urinary frequency. SKIN: Denies pruitis. Denies rash. PHYSICAL EXAM: VITAL SIGNS: Reviewed GENERAL: Well-developed in no acute distress. HEENT: No sclera icterus. Extraocular movements grossly intact. Moist buccal mucosa. Head is atraumatic, normocephalic. No nasal drainage. ABDOMEN: Soft. Nondistended. Tenderness with palpation of the right side of the abdomen NEUROLOGIC: Alert and oriented. Cranial nerves II through XII grossly intact. LABORATORY DATA: No labs IMAGING: computed tomography scan of the abdomen and pelvis that showed a large benign appearing mass in the lower abdomen and pelvis with fluid, fat and calcific density and most likely represents a benign dermoid. It was present on prior study but is slightly larger in size. It is currently measuring 17 x 12 x 12 cm. ASSESSMENT: 1. Dermoid mass of the lower abdomen and pelvis 2. Abdominal pain PLAN: -No surgical intervention plan -Defer treatment to [facility] service -Agree with [facility] recommendation to transfer patient to tertiary care center Thank you for this consultation Physician Art Historian note has been reviewed by physician. Signing provider agrees with the documented findings, assessment, and plan of care. Past Medical History Past Medical History: GERD/Reflux, Seizure Disorder, Thyroid Disorder Additional Past Medical History / Comment(s): Seizure DISORDER, LAST 04/20. Hypothyroid, UNSURE OF DIAGNOSIS, NO RX YET. History of Any Multi-Drug Resistant Organisms: None Reported Past Surgical History: Orthopedic Surgery Additional Past Surgical History / Comment(s): ORIF RT Hand. ORIF LT Foot. Past Anesthesia/Blood Transfusion Reactions: No Reported Reaction Past Psychological History: Anxiety Additional Psychological History / Comment(s): Used marijuana occasionally to help. Smoking Status: Current every day smoker Past Alcohol Use History: None Reported Additional Past Alcohol Use History / Comment(s): SMOKED SINCE 2004, 1 PPD. Past Drug Use History: Marijuana Additional Drug Use History / Comment(s): daily use - Past Family History Mother Family Medical History: Deep Vein Thrombosis (DVT), Hypertension Father Family Medical History: Cancer Additional Family Medical History / Comment(s): ? Bone cancer, no biopsy done Medications and Allergies Home Medications Medication Instructions Recorded Confirmed Type ALPRAZolam [Xanax] 0.5 mg PO DAILY PRN 03/06/20 07/11/20 History levETIRAcetam [Keppra] 1,500 mg PO Q12HR 07/11/20 07/11/20 History Allergies Allergy/AdvReac Type Severity Reaction Status Date / Time shellfish derived [Shellfish] Allergy Intermediate Rash/Hives Verified 07/11/20 13:33 adhesive Allergy Mild Rash/Hives Verified 07/11/20 13:33 PAPER TAPE Allergy Mild Rash/Hives Uncoded 07/11/20 12:19 TAPE Allergy Mild Itching Uncoded 07/11/20 12:19 Surgical - Exam Vital Signs Temp Pulse Resp BP Pulse Ox 99.3 F 86 18 119/80 96 07/11/20 12:15 07/11/20 12:15 07/11/20 12:15 07/11/20 12:15 07/11/20 12:15
--- NOTE | 2020-07-11 18:25 | P.OBCN ---
History of Present Illness Consult date: 07/11/20 Reason for consult: pelvic mass Chief complaint: Chronic pelvic pain and pelvic mass History of present illness: This patient is a 34-year-old 1 para 1 female who is admitted to this hospital earlier today by Dr. Garcia for abdominal pain and known pelvic mass. Patient's history is such that she was seen by Dr. Del Rosario in June 2016 in referral from another film archivist Dr. Collins. Patient at that time had a large ovarian mass approximately 14 cm thought to be a dermoid cyst. Patient was counseled by Dr. Del Rosario and he did schedule her for surgery on multiple occasions however this patient did not follow through with the surgery. Due to noncompliance with care Dr. Del Rosario did discharge her from our office. Patient subsequently was followed by other physicians and it appears she had another CAT scan done in 2018 that showed the pelvic mass to be 17 cm. Patient reports that she saw Dr. Garcia's today in the office and an outpatient CAT scan was ordered today. This CAT scan shows a persistence of a 17 cm complex mass most likely a dermoid. Patient has had on and off pain nothing acute. I did asked the patient why she did not follow up as scheduled with Dr. Del Rosario and she was quite vague as to the circumstances of this. Patient denies fever, nausea, vomiting. She is lying comfortably in bed. Past Medical History Past Medical History: GERD/Reflux, Seizure Disorder, Thyroid Disorder Additional Past Medical History / Comment(s): Seizure DISORDER, LAST 04/20. Hypothyroid, UNSURE OF DIAGNOSIS, NO RX YET. History of Any Multi-Drug Resistant Organisms: None Reported Past Surgical History: Orthopedic Surgery Additional Past Surgical History / Comment(s): ORIF RT Hand. ORIF LT Foot. Past Anesthesia/Blood Transfusion Reactions: No Reported Reaction Past Psychological History: Anxiety Additional Psychological History / Comment(s): Used marijuana occasionally to help. Smoking Status: Current every day smoker Past Alcohol Use History: None Reported Additional Past Alcohol Use History / Comment(s): SMOKED SINCE 2004, 1 PPD. Past Drug Use History: Marijuana Additional Drug Use History / Comment(s): daily use - Past Family History Mother Family Medical History: Deep Vein Thrombosis (DVT), Hypertension Father Family Medical History: Cancer Additional Family Medical History / Comment(s): ? Bone cancer, no biopsy done Medications and Allergies Home Medications Medication Instructions Recorded Confirmed Type ALPRAZolam [Xanax] 0.5 mg PO DAILY PRN 03/06/20 07/11/20 History levETIRAcetam [Keppra] 1,500 mg PO Q12HR 07/11/20 07/11/20 History Allergies Allergy/AdvReac Type Severity Reaction Status Date / Time shellfish derived [Shellfish] Allergy Intermediate Rash/Hives Verified 07/11/20 13:33 adhesive Allergy Mild Rash/Hives Verified 07/11/20 13:33 PAPER TAPE Allergy Mild Rash/Hives Uncoded 07/11/20 12:19 TAPE Allergy Mild Itching Uncoded 07/11/20 12:19 Exam Vital Signs Temp Pulse Resp BP Pulse Ox 07/11/20 12:15 99.3 F 86 18 119/80 96 Intake and Output 07/11/20 07/11/20 07/11/20 06:59 14:59 22:59 Other: Weight 88.9 kg Assessment and Plan Assessment: This is a 34-year-old 1 para 1 female with known large pelvic mass approximately 17 cm in dimensions most likely consistent with a dermoid. Patient has been offered care and treatment by Dr. Del Rosario in the past but has d eclined. For this reason and she has been discharged from his care. Due to the very large nature of this mass, I feel it is felt as best to be removed by [facility] oncology in the event the surgery is more involved. This is best done by the [facility] specialist, also in the event this is a low malignant potential tumor or other neoplasm (although it appears benign). I have discussed this case with Dr. Del Rosario and he is in agreement as well. Patient is comfortably resting in bed and certainly this is not an acute problem (it has been present for >4 yrs) and there is no evidence of ovarian torsion. There is no indication for surgical intervention acutely at this time and certainly this patient may be discharged to follow-up with [facility] oncology as arranged by Dr. Garcia. Thank you very much for this consultation. (1) Pelvic mass Current Visit: Yes Status: Acute Code(s): R19.00 - INTRA-ABD AND PELVIC SWE LLING, MASS AND LUMP, UNSP SITE SNOMED Code(s): 00793452 (2) Chronic pain Current Visit: Yes Status: Acute Code(s): G89.29 - OTHER CHRONIC PAIN SNOMED Code(s): 49060845
== END 2020-07-11 19:51 | disposition home or self-care (01) ==
LOC: 6PED 12:07
PROVIDERS: ADMIT Family Medicine; ATTEND Family Medicine
DX: R19.00 Intra-abdominal and pelvic swelling, mass and lump, unspecified site (principal); G89.29 Other chronic pain; Z91.19 Patient's noncompliance with other medical treatment and regimen; G40.909 Epilepsy, unspecified, not intractable, without status epilepticus; F17.210 Nicotine dependence, cigarettes, uncomplicated; E03.9 Hypothyroidism, unspecified; K21.9 Gastro-esophageal reflux disease without esophagitis; F41.9 Anxiety disorder, unspecified; Z79.899 Other long term (current) drug therapy; Z91.013 Allergy to seafood; Z91.048 Other nonmedicinal substance allergy status; Z87.81 Personal history of (healed) traumatic fracture; Z86.59 Personal history of other mental and behavioral disorders; Z80.9 Family history of malignant neoplasm, unspecified; Z82.49 Family history of ischemic heart disease and other diseases of the circulatory system
CPT/HCPCS: 96374; G0378; G0379; J1170; 74176

== ENCOUNTER → 2020-07-11 | Outpatient (CLI) | payer OTHER ==
--- NOTE | 2020-07-11 10:35 | CT ---
EXAMINATION TYPE: CT abdomen pelvis wo con DATE OF EXAM: 07/11/2020 COMPARISON: 11/25/2018 HISTORY: H/O RUQ pain CT DLP: 1030 mGycm Automated exposure control for dose reduction was used. TECHNIQUE: 17, FINDINGS: The visualized lung bases are clear. There is surgical absence of the gallbladder and no biliary ductal dilatation. There is no organomegaly involving the liver, pancreas, spleen. There is a small mass of the right ad renal gland which most likely represents a cyst or an adenoma. There is no renal or ureteral calcification is no hydronephrosis. There is no retroperitoneal adenopa thy or hemorrhage in the caliber of the common aorta is normal. The bowel loops are normal in caliber and is no evidence of obstruction. There is no free intraperito darian air or fluid. In the lower abdomen and pelvis, there is a well-circumscribed 17 x 12 x 12 mass containing dense gloria cifications, fat and fluid. It was present on the prior study and previously measured 17 x 12.4 x 10 cm. This most likely represents a benign dermoid. The osseous structures are intact. IMPRESSION: Large benign appearing mass in the lower abdomen and pelvis with fluid, fat and calcific density and most likely represents a benign dermoid. It was present on the prior study and is slightl y larger in size than on the prior study.
== END | disposition home or self-care (01) ==
LOC: RADCTMAIN 08:23
PROVIDERS: ATTEND Family Medicine
DX: R10.11 Right upper quadrant pain (principal)
CPT/HCPCS: 74176

== ENCOUNTER → 2020-10-03 | Outpatient (CLI) | payer OTHER ==
--- NOTE | 2020-10-05 12:55 | CT ---
EXAMINATION TYPE: CT ChestAbdPelvis w con DATE OF EXAM: 10/03/2020 INDICATION: LT lower quadrant abdominal swelling, mass COMPARISON: 07/11/2020 CT DLP: 1184.10 mGycm CONTRAST: Performed with Oral Contrast and with IV Contrast, patient injected with 100 mL of Isovue 300. TECHNIQUE: Axial images at 5 mm thick sections. Reconstructed images in the coronal plane. Delayed images through the kidneys. FINDINGS: CT CHEST: Portion of the thyroid visualized is normal. No suspicious lung nodules or focal infiltrates are present. No enlarged mediastinal or hilar adenopathy is evident. The ascending aorta diameter at the level of the main pulmonary artery is 2.8 cm. The main pulmonary artery diameter at the bifurcation is 2.[address] ABDOMEN: Liver: Normal Spleen: Normal Pancreas: Normal Adrenal glands: The adrenal glands are normal. Gallbladder: Surgically absent Kidneys: No masses are evident. No hydronephrosis is present. There is a cyst in the inferior pole right kidney measuring 1.8 cm and 27 [place] Delayed images were obtained through the kidneys, wh ich remain unremarkable. Aorta: Normal Inferior vena cava: Normal. CT PELVIS: Loops of bowel within the abdomen and pelvis are normal. There are loops of bowel which are incom pletely distended or lack oral contrast limiting their evaluation. Appendix: Normal as visualized. Urinary bladder: Normal. Genitourinary structures: There is a large septated cyst which contains calcification can be compatib le large germline. This measures 13.0 x 12.6 cm in size. Findings can be compatible with a dermoid. Osseous structures: No suspicious lytic or sclerotic lesions. IMPRESSIONS: 1. Large dermoid within the lower pelvis.
== END | disposition home or self-care (01) ==
LOC: RADCTMAIN 17:15
PROVIDERS: ATTEND Obstetrics & Gynecology Gynecology
DX: D36.7 Benign neoplasm of other specified sites (principal)
CPT/HCPCS: 71260; 74177; Q9967

== ENCOUNTER 2021-01-03 05:11 | Emergency (ER) | payer OTHER ==
[2021-01-03] MEDS ORDERED: ACETAMINOPHEN TAB 500 MG TAB PO STA (05:36)
[2021-01-03] MEDS ORDERED: ONDANSETRON 4 MG/2 ML VIAL IVP STA (05:36)
[2021-01-03] MEDS ORDERED: KETOROLAC 15 MG/ML 1 ML VIAL IVP STA (05:36)
[2021-01-03] MEDS ORDERED: SODIUM CHLORIDE 0.9% 1,000 ML IV STA (05:36)
[2021-01-03] MEDS ORDERED: DEXAMETHASONE SOD PHOSPHATE 10 MG/ML 1 ML VIAL IVP STA (05:36)
--- NOTE | 2021-01-03 05:44 | ED ---
Fever HPI - General Chief Complaint: Fever Stated Complaint: Dizziness Time Seen by Provider: 01/03/21 05:36 Source: patient, RN notes reviewed, old records reviewed Mode of arrival: ambulatory Limitations: no limitations - History of Present Illness Initial Comments: This is a 35-year-old female to the emergency room today. Patient presents today for evaluation regarding diffuse body aches pains fever weakness chills. Patient does have positive coronavirus exposure hyaline. Otherwise no significant shortness breath currently mild cough and congestion. No vomiting. She has have diarrhea does have history of seizure and thyroid MD Complaint: fever, malaise, weakness -: days(s) Temperature Source: subjective Context: sick contacts, multiple patients with similar symptoms Associated Symptoms: chills, rigors, myalgias Treatments Prior to Arrival: none - Related Data Home Medications Medication Instructions Recorded Confirmed ALPRAZolam [Xanax] 0.5 mg PO DAILY PRN 03/06/20 07/11/20 levETIRAcetam [Keppra] 1,500 mg PO Q12HR 07/11/20 07/11/20 Allergies Allergy/AdvReac Type Severity Reaction Status Date / Time shellfish derived [Shellfish] Allergy Intermediate Rash/Hives Verified 01/03/21 05:29 adhesive Allergy Mild Rash/Hives Verified 01/03/21 05:29 PAPER TAPE Allergy Mild Rash/Hives Uncoded 01/03/21 05:29 Review of Systems ROS Statement: Those systems with pertinent positive or pertinent negative responses have been documented in the HPI. ROS Other: All systems not noted in ROS Statement are negative. Past Medical History Past Medical History: GERD/Reflux, Seizure Disorder, Thyroid Disorder Additional Past Medical History / Comment(s): Seizure DISORDER, LAST 04/20. Hy pothyroid, UNSURE OF DIAGNOSIS, NO RX YET. History of Any Multi-Drug Resistant Organisms: None Reported Past Surgical History: Cholecystectomy, Hysterectomy, Orthopedic Surgery Additional Past Surgical History / Comment(s): ORIF RT Hand. ORIF LT Foot. Past Anesthesia/Blood Transfusion Reactions: No Reported Reaction Past Psychological History: Anxiety Smoking Status: Current every day smoker Past Alcohol Use History: None Reported Past Drug Use History: Marijuana - Past Family History Mother Family Medical History: Deep Vein Thrombosis (DVT), Hypertension Father Family Medical History: Cancer Additional Family Medical History / Comment(s): ? Bone cancer, no biopsy done General Exam General appearance: alert, in no apparent distress Head exam: Present: atraumatic, normocephalic, normal inspection Eye exam: Present: normal appearance, PERRL, EOMI. Absent: scleral icterus, conjunctival injection, periorbital swelling ENT exam: Present: normal exam, mucous membranes moist Neck exam: Present: normal inspection. Absent: tenderness, meningismus, lymphadenopathy Respiratory exam: Present: normal lung sounds bilaterally. Absent: respiratory distress, wheezes, rales, rhonchi, stridor Cardiovascular Exam: Present: regular rate, normal rhythm, normal heart sounds. Absent: systolic murmur, diastolic murmur, rubs, gallop, clicks GI/Abdominal exam: Present: soft, normal bowel sounds. Absent: distended, tenderness, guarding, rebound, rigid Extremities exam: Present: normal inspection, full ROM, normal capillary refill. Absent: tenderness, pedal edema, joint swelling, calf tenderness Back exam: Present: normal inspection Neurological exam: Present: alert, oriented X3, CN II-XII intact Psychiatric exam: Present: normal affect, normal mood Skin exam: Present: warm, dry, intact, normal color. Absent: rash Course Vital Signs 01/03/21 05:29 Temperature 100.4 F H Pulse Rate 83 Respiratory 20 Rate Blood Pressure 114/64 O2 Sat by Pulse 99 Oximetry - Reevaluation(s) Reevaluation #1: 01/03/21 06:36 Medical record is reviewed Reevaluation #2: 01/03/21 06:36 Patient symptoms are improved here in the ER Reevaluation #3: 01/03/21 06:36 Patient informed of results questions answered Medical Decision Making - Medical Decision Making 35 female DF for evaluation. Patient presents today for evaluation of all symptoms of coronavirus. Patient is positive for coronavirus here in the ER x- rays otherwise clear no distress patient given antibiotics and can be discharged home - Lab Data Result diagrams: 01/03/21 05:52 Lab Results 01/03/21 01/03/21 01/03/21 Range/Units 05:39 05:52 05:52 PT 10.7 (9.0-12.0) sec INR 1.0 (<1.2) APTT 24.5 (22.0-30.0) sec Sodium 139 (137-145) mmol/L Potassium 4.3 (3.5-5.1) mmol/L Chloride 108 H (98-107) mmol/L Carbon Dioxide 23 (22-30) mmol/L Anion Gap 8 mmol/L BUN 19 H (7-17) mg/dL Creatinine 0.83 (0.52-1.04) mg/dL Est GFR (CKD-EPI)AfAm >90 (>60 ml/min/1.73 sqM) Est GFR (CKD-EPI)NonAf >90 (>60 ml/min/1.73 sqM) Glucose 98 (74-99) mg/dL Plasma Lactic Acid Mike (0.7-2.0) mmol/L Calcium 9.7 (8.4-10.2) mg/dL Magnesium 1.9 (1.6-2.3) mg/dL Total Bilirubin 0.2 (0.2-1.3) mg/dL AST 28 (14-36) U/L ALT 17 (4-34) U/L Alkaline Phosphatase 62 (38-126) U/L Lactate Dehydrogenase 407 (313-618) U/L C-Reactive Protein 3.4 H (<1.0) mg/dL Total Protein 7.4 (6.3-8.2) g/dL Albumin 4.0 (3.5-5.0) g/dL Coronavirus (PCR) Detected A (Not Detectd) 01/03/21 Range/Units 05:52 PT (9.0-12.0) sec INR (<1.2) APTT (22.0-30.0) sec Sodium (137-145) mmol/L Potassium (3.5-5.1) mmol/L Chloride (98-107) mmol/L Carbon Dioxide (22-30) mmol/L Anion Gap mmol/L BUN (7-17) mg/dL Creatinine (0.52-1.04) mg/dL Est GFR (CKD-EPI)AfAm (>60 ml/min/1.73 sqM) Est GFR (CKD-EPI)NonAf (>60 ml/min/1.73 sqM) Glucose (74-99) mg/dL Plasma Lactic Acid Mike 1.0 (0.7-2.0) mmol/L Calcium (8.4-10.2) mg/dL Magnesium (1.6-2.3) mg/dL Total Bilirubin (0.2-1.3) mg/dL AST (14-36) U/L ALT (4-34) U/L Alkaline Phosphatase (38-126) U/L Lactate Dehydrogenase (313-618) U/L C-Reactive Protein (<1.0) mg/dL Total Protein (6.3-8.2) g/dL Albumin (3.5-5.0) g/dL Coronavirus (PCR) (Not Detectd) - Radiology Data Radiology results: report reviewed (Chest x-rays negative for acute disease), image reviewed Disposition Clinical Impression: Coronavirus infection, COVID-19 Disposition: ADMITTED IP TO THIS HOSP Condition: Fair Instructions (If sedation given, give patient instructions): Coronavirus Disease 2019 (COVID-19) Is patient prescribed a controlled substance at d/c from ED?: No Referrals: Pawel Garcia MD [Primary Care Provider] - 1-2 days
--- NOTE | 2021-01-03 06:17 | XR ---
EXAMINATION TYPE: XR chest 1V portable DATE OF EXAM: 01/03/2021 COMPARISON: 03/22/2014 HISTORY: Chest pain TECHNIQUE: FINDINGS: Heart and mediastinum are normal. Lungs are clear. Diaphragm is normal. Bony thorax appears normal. IMPRESSION: Normal chest. No change.
[2021-01-03 06:24] LABS: ALT 17 U/L (4-34); AST 28 U/L (14-36); African American GFR (CKD) >90 (>60 ml/min/1.73 sqM); Alkaline Phosphatase 62 U/L (38-126); Anion Gap 8 mmol/L; Blood Urea Nitrogen 19 mg/dL (7-17); C Reactive Protein 3.4 mg/dL (<1.0); Calcium 9.7 mg/dL (8.4-10.2); Carbon Dioxide 23 mmol/L (22-30); Chloride 108 mmol/L (98-107); Glucose 98 mg/dL (74-99); LDH 407 U/L (313-618); Magnesium 1.9 mg/dL (1.6-2.3); Non-African American GFR(CKD) >90 (>60 ml/min/1.73 sqM); Potassium 4.3 mmol/L (3.5-5.1); Sodium 139 mmol/L (137-145); Total Bilirubin 0.2 mg/dL (0.2-1.3); Total Protein 7.4 g/dL (6.3-8.2)
[2021-01-03] MEDS ORDERED: SODIUM CHLORIDE 0.9% 50 ML IVPB ONE (06:30)
[2021-01-03 06:31] LABS: Partial Thromboplastin Time 24.5 sec (22.0-30.0); Prothrombin Time 10.7 sec (9.0-12.0)
[2021-01-03] MEDS ORDERED: BAMLANIVIMAB (EUA) 700 MG, ETESEVIMAB (EUA) 1,400 MG in SODIUM CHLORIDE 0.9% 50 ML IVPB ONE (06:45)
[2021-01-03 06:50] LABS: Basophils # (A) 0.1 k/uL (0-0.2); Basophils % (A) 1 %; Eosinophils # (A) 0.3 k/uL (0-0.7); Eosinophils % (A) 4 %; HCT 38.1 % (34.0-46.0); Lymphocytes % (A) 13 %; MCH 30.8 pg (25.0-35.0); MCHC 34.1 g/dL (31.0-37.0); MCV 90.4 fL (80.0-100.0); Mean Platelet Volume 7.1; Monocytes # (A) 0.5 k/uL (0-1.0); Monocytes % (A) 7 %; Neutrophils # (A) 5.8 k/uL (1.3-7.7); Neutrophils % (A) 74 %; Platelet Count 358 k/uL (150-450); RBC 4.21 m/uL (3.80-5.40); RDW 13.5 % (11.5-15.5); WBC 7.8 k/uL (3.8-10.6)
[2021-01-03 08:09] VITALS: BP 101/65; PULSE 71; RESP 18; TEMP 98.3
== END 2021-01-03 08:04 | disposition other institution (70) ==
LOC: EC 05:11
DX: U07.1 COVID-19 (principal); K21.9 Gastro-esophageal reflux disease without esophagitis; E07.9 Disorder of thyroid, unspecified; F41.9 Anxiety disorder, unspecified; F17.200 Nicotine dependence, unspecified, uncomplicated; F12.90 Cannabis use, unspecified, uncomplicated; Z90.49 Acquired absence of other specified parts of digestive tract; Z90.710 Acquired absence of both cervix and uterus
CPT/HCPCS: 99285; 96374; 96375 ×2; 36415; 80053; 83605; 83615; 83735; 85025; 85610; 85730; 86140; 87635; 71045; J1100; J2405; J1885; J3490

== ENCOUNTER 2021-05-12 03:17 | Emergency (ER) | payer BC, OTHER ==
[2021-05-12 05:09] LABS: Basophils # (A) 0.1 k/uL (0-0.2); Basophils % (A) 1 %; Eosinophils # (A) 1.1 k/uL (0-0.7); Eosinophils % (A) 8 %; HCT 40.2 % (34.0-46.0); HGB 13.4 gm/dL (11.4-16.0); Lymphocytes # (A) 0.7 k/uL (1.0-4.8); Lymphocytes % (A) 5 %; MCH 31.4 pg (25.0-35.0); MCHC 33.4 g/dL (31.0-37.0); Monocytes # (A) 0.4 k/uL (0-1.0); Monocytes % (A) 3 %; Neutrophils # (A) 12.2 k/uL (1.3-7.7); Neutrophils % (A) 83 %; Platelet Count 359 k/uL (150-450); RBC 4.28 m/uL (3.80-5.40); RDW 13.8 % (11.5-15.5); WBC 14.6 k/uL (3.8-10.6)
[2021-05-12 07:10] LABS: ALT 20 U/L (4-34); AST 26 U/L (14-36); African American GFR (CKD) >90 (>60 ml/min/1.73 sqM); Albumin 4.1 g/dL (3.5-5.0); Alkaline Phosphatase 58 U/L (38-126); Anion Gap 5 mmol/L; Blood Urea Nitrogen 16 mg/dL (7-17); Calcium 9.7 mg/dL (8.4-10.2); Carbon Dioxide 23 mmol/L (22-30); Chloride 112 mmol/L (98-107); Glucose 98 mg/dL (74-99); Non-African American GFR(CKD) >90 (>60 ml/min/1.73 sqM); Sodium 140 mmol/L (137-145); Total Bilirubin 0.5 mg/dL (0.2-1.3); Total Protein 7.7 g/dL (6.3-8.2)
[2021-05-12] MEDS ORDERED: KETOROLAC 15 MG/ML 1 ML VIAL IM STA (07:30)
--- NOTE | 2021-05-12 07:34 | ED ---
Seizure HPI - General Chief Complaint: Seizure Stated Complaint: Seizure Time Seen by Provider: 05/12/21 07:18 Source: patient, EMS, RN notes reviewed Mode of arrival: wheelchair Limitations: no limitations - History of Present Illness Initial Comments: This a 35-year-old female presents emergency Department with chief complaint of possible seizure. Patient states he has a long history of seizures. Patient is given an and Keppra. She has not missed any doses. Patient states that she awoke up on the ground when she states that she no she went to bed laying down in her bed. Patient denies any significant injury. She states that she was just concerned that she's had seizure. Patient has any focal weakness, dizziness or headache, blurred Vision nausea vomiting - Related Data Home Medications Medication Instructions Recorded Confirmed ALPRAZolam [Xanax] 0.5 mg PO DAILY PRN 03/06/20 07/11/20 levETIRAcetam [Keppra] 1,500 mg PO Q12HR 07/11/20 07/11/20 Allergies Allergy/AdvReac Type Severity Reaction Status Date / Time shellfish derived [Shellfish] Allergy Intermediate Rash/Hives Verified 05/12/21 04:12 adhesive Allergy Mild Rash/Hives Verified 05/12/21 04:12 PAPER TAPE Allergy Mild Rash/Hives Uncoded 05/12/21 04:12 Review of Systems ROS Statement: Those systems with pertinent positive or pertinent negative responses have been documented in the HPI. ROS Other: All systems not noted in ROS Statement are negative. Past Medical History Past Medical History: GERD/Reflux, Seizure Disorder, Thyroid Disorder Additional Past Medical History / Comment(s): Seizure DISORDER, LAST 04/20. Hypothyroid, UNSURE OF DIAGNOSIS, NO RX YET. History of Any Multi-Drug Resistant Organisms: None Reported Past Surgical History: Cholecystectomy, Hysterectomy, Orthopedic Surgery Additional Past Surgical History / Comment(s): ORIF RT Hand. ORIF LT Foot. Past Anesthesia/Blood Transfusion Reactions: No Reported Reaction Past Psychological History: Anxiety Smoking Status: Current every day smoker Past Alcohol Use History: None Reported Past Drug Use History: Marijuana - Past Family History Mother Family Medical History: Deep Vein Thrombosis (DVT), Hypertension Father Family Medical History: Cancer Additional Family Medical History / Comment(s): ? Bone cancer, no biopsy done General Exam Limitations: no limitations General appearance: alert, in no apparent distress Head exam: Present: atraumatic, normocephalic, normal inspection Eye exam: Present: normal appearance, PERRL, EOMI. Absent: scleral icterus, c onjunctival injection, periorbital swelling ENT exam: Present: normal exam, normal oropharynx, mucous membranes moist Neck exam: Present: normal inspection, full ROM. Absent: tenderness, meningismus, lymphadenopathy Respiratory exam: Present: normal lung sounds bilaterally. Absent: respiratory distress, wheezes, rales, rhonchi, stridor Cardiovascular Exam: Present: regular rate, normal rhythm, normal heart sounds. Absent: systolic murmur, diastolic murmur, rubs, gallop, clicks Neurological exam: Present: alert, oriented X3, CN II-XII intact, reflexes normal. Absent: motor sensory deficit Skin exam: Present: warm, dry, intact, normal color. Absent: rash Course Vital Signs 05/12/21 04:12 Temperature 97.1 F L Pulse Rate 83 Respiratory 15 Rate Blood Pressure 109/65 O2 Sat by Pulse 98 Oximetry Medical Decision Making - Medical Decision Making 35-year-old presented for possible seizure overnight. She does have history. She may have had a breakthrough seizure. She is at her normal baseline has complaints. Patient did have basic labs which were unremarkable, Keppra level is pending. Patient denies again that she cannot drive. Patient will follow-up with her PCP, neurologist - Lab Data Result diagrams: 05/12/21 04:16 05/12/21 04:16 Lab Results 05/12/21 05/12/21 Range/Units 04:16 04:16 WBC 14.6 H (3.8-10.6) k/uL RBC 4.28 (3.80-5.40) m/uL Hgb 13.4 (11.4-16.0) gm/dL Hct 40.2 (34.0-46.0) % MCV 94.0 (80.0-100.0) fL MCH 31.4 (25.0-35.0) pg MCHC 33.4 (31.0-37.0) g/dL RDW 13.8 (11.5-15.5) % Plt Count 359 (150-450) k/uL MPV 7.0 Neutrophils % 83 % Lymphocytes % 5 % Monocytes % 3 % Eosinophils % 8 % Basophils % 1 % Neutrophils # 12.2 H (1.3-7.7) k/uL Lymphocytes # 0.7 L (1.0-4.8) k/uL Monocytes # 0.4 (0-1.0) k/uL Eosinophils # 1.1 H (0-0.7) k/uL Basophils # 0.1 (0-0.2) k/uL Sodium 140 (137-145) mmol/L Potassium 4.0 (3.5-5.1) mmol/L Chloride 112 H (98-107) mmol/L Carbon Dioxide 23 (22-30) mmol/L Anion Gap 5 mmol/L BUN 16 (7-17) mg/dL Creatinine 0.77 (0.52-1.04) mg/dL Est GFR (CKD-EPI)AfAm >90 (>60 ml/min/1.73 sqM) Est GFR (CKD-EPI)NonAf >90 (>60 ml/min/1.73 sqM) Glucose 98 (74-99) mg/dL Calcium 9.7 (8.4-10.2) mg/dL Total Bilirubin 0.5 (0.2-1.3) mg/dL AST 26 (14-36) U/L ALT 20 (4-34) U/L Alkaline Phosphatase 58 (38-126) U/L Total Protein 7.7 (6.3-8.2) g/dL Albumin 4.1 (3.5-5.0) g/dL - EKG Data -: EKG Interpreted by Tx EKG Comments: EKG performed at 4:23 rate of 78 KS 211 QRS 101 QT/QTC 337/370 sinus rhythm with first-degree block Disposition Clinical Impression: Generalized seizure Disposition: HOME SELF-CARE Condition: Stable Instructions (If sedation given, give patient instructions): Seizure/Epilepsy Discharge Instructions & Follow-Up, Recurrent Seizures in Adults (ED) Additional Instructions: Please return to the Emergency Department if symptoms worsen or any other concerns. Is patient prescribed a controlled substance at d/c from ED?: No Referrals: None,Stated [Primary Care Provider] - 1-2 days Time of Disposition: 07:33
[2021-05-12 07:59] VITALS: BP 107/60; PULSE 80; RESP 18; TEMP 98.4
== END 2021-05-12 07:59 | disposition home or self-care (01) ==
LOC: EC 03:17
DX: R56.9 Unspecified convulsions (principal); K21.9 Gastro-esophageal reflux disease without esophagitis; E07.9 Disorder of thyroid, unspecified; F41.9 Anxiety disorder, unspecified; F17.200 Nicotine dependence, unspecified, uncomplicated; F12.90 Cannabis use, unspecified, uncomplicated; Z90.49 Acquired absence of other specified parts of digestive tract; Z90.710 Acquired absence of both cervix and uterus
CPT/HCPCS: 99285; 96372; 36415; 93005; 80053; 80177; 85025; J1885

== ENCOUNTER 2021-08-17 13:06 | Emergency (ER) | payer OTHER ==
[2021-08-17 13:19] VITALS: TEMP 98.2
[2021-08-17] MEDS ORDERED: SODIUM CHLORIDE 0.9% 1,000 ML IV STA (15:41)
[2021-08-17 16:38] LABS: Glucose,Whole Blood 90 mg/dL (70-110)
[2021-08-17 16:48] LABS: Basophils # (A) 0.2 k/uL (0-0.2); Basophils % (A) 2 %; Eosinophils # (A) 1.1 k/uL (0-0.7); Eosinophils % (A) 9 %; HCT 38.4 % (34.0-46.0); HGB 12.7 gm/dL (11.4-16.0); Lymphocytes # (A) 1.8 k/uL (1.0-4.8); Lymphocytes % (A) 15 %; MCH 31.1 pg (25.0-35.0); MCHC 33.1 g/dL (31.0-37.0); MCV 93.9 fL (80.0-100.0); Monocytes # (A) 0.4 k/uL (0-1.0); Monocytes % (A) 3 %; Neutrophils # (A) 8.5 k/uL (1.3-7.7); Neutrophils % (A) 70 %; Platelet Count 345 k/uL (150-450); RBC 4.09 m/uL (3.80-5.40); RDW 13.1 % (11.5-15.5); WBC 12.1 k/uL (3.8-10.6)
[2021-08-17 17:08] LABS: ALT 14 U/L (4-34); AST 22 U/L (14-36); African American GFR (CKD) >90 (>60 ml/min/1.73 sqM); Albumin 4.5 g/dL (3.5-5.0); Alkaline Phosphatase 68 U/L (38-126); Anion Gap 6 mmol/L; Blood Urea Nitrogen 7 mg/dL (7-17); Calcium 9.8 mg/dL (8.4-10.2); Carbon Dioxide 25 mmol/L (22-30); Chloride 109 mmol/L (98-107); Glucose 89 mg/dL (74-99); Magnesium 2.1 mg/dL (1.6-2.3); Non-African American GFR(CKD) >90 (>60 ml/min/1.73 sqM); Potassium 4.2 mmol/L (3.5-5.1); Sodium 140 mmol/L (137-145); Total Bilirubin 0.4 mg/dL (0.2-1.3); Total Protein 7.7 g/dL (6.3-8.2)
[2021-08-17 17:25] LABS: Amphetamine Screen,Urine Not Detected (NotDetected); Appearance,Urine Clear (Clear); Barbiturate Screen,Urine Not Detected (NotDetected); Benzodiazepines Screen,Urine Not Detected (NotDetected); Bilirubin,Urine Negative (Negative); Blood,Urine Negative (Negative); Cocaine Screen,Urine Not Detected (NotDetected); Color,Urine Light Yellow; Glucose,Urine (UA) Negative (Negative); Ketones,Urine Negative (Negative); Leukocyte Esterase,Urine Negative (Negative); Methadone Screen, Urine Not Detected (NotDetected); Nitrite,Urine Negative (Negative); Opiate Screen,Urine Not Detected (NotDetected); Oxycodone Screen, Urine Not Detected (NotDetected); Phencyclidine Screen,Urine Not Detected (NotDetected); Protein,Urine Negative (Negative); Tricyclic Antidepressant,Urine Not Detected (NotDetected); Urn Cannabinoid Scrn Detected (NotDetected); Urobilinogen,Urine <2.0 mg/dL (<2.0)
[2021-08-17] MEDS ORDERED: IBUPROFEN 400 MG TAB PO STA (17:27)
[2021-08-17] MEDS ORDERED: KETOROLAC 15 MG/ML 1 ML VIAL IVP STA (17:43)
--- NOTE | 2021-08-17 18:12 | CT ---
EXAMINATION TYPE: CT brain cspine wo con DATE OF EXAM: 08/17/2021 COMPARISON: None HISTORY: seizure CT DLP: 1365.3 mGycm Automated exposure control for dose reduction was used. Images of the brain and cervical spine obtained with no contrast. Ventricles have normal size. There is no mass effect or midline shift. No sign of intracranial hemorr mani. The calvarium is intact. There is incomplete aeration of the mastoid sinuses. The cervical vertebra have normal alignment. Posterior elements are intact with facet joints appear n ormal. Disc spaces are normal. Prevertebral soft tissues are intact. IMPRESSION: Normal CT scan of the cervical spine. Negative CT scan of the brain. There is evidence of some bilate ral mastoiditis.
--- NOTE | 2021-08-17 18:52 | ED ---
Seizure HPI - General Chief Complaint: Seizure Stated Complaint: Seizure, Migraine, Jaw Pain Time Seen by Provider: 08/17/21 15:05 Source: patient Mode of arrival: ambulatory Limitations: no limitations - History of Present Illness Initial Comments: Patient is a 36-year-old female presenting with chief complaint of seizure. Patient has a history of seizures for which he takes Keppra and gabapentin. Patient states that after today's seizure she woke up in her bed, she had bleeding from the bilateral nostrils, headache, she bit the left side of her t ongue, and she had a small bump on the left side of her head. Patient is currently in the process of trying to find a new neurologist. She presented to the ER today because she just felt "different" after the seizure. She reports no neck pain, vision or hearing changes, weakness, numbness, tingling, nausea, vomiting, chest pain, shortness of breath, fever, chills, cough, palpitations. - Related Data Home Medications Medication Instructions Recorded Confirmed levETIRAcetam [Keppra] 1,500 mg PO Q12HR 07/11/20 08/17/21 Meclizine [Antivert] 12.5 mg PO Q8H PRN 05/12/21 08/17/21 Gabapentin 300 mg PO QID 08/17/21 08/17/21 Allergies Allergy/AdvReac Type Severity Reaction Status Date / Time shellfish derived [Shellfish] Allergy Intermediate Rash/Hives Verified 08/17/21 16:34 adhesive Allergy Mild Rash/Hives Verified 08/17/21 16:34 PAPER TAPE Allergy Mild Rash/Hives Uncoded 05/12/21 04:12 Review of Systems ROS Statement: Those systems with pertinent positive or pertinent negative responses have been documented in the HPI. ROS Other: All systems not noted in ROS Statement are negative. Past Medical History Past Medical History: GERD/Reflux, Seizure Disorder, Thyroid Disorder Additional Past Medical History / Comment(s): Seizure DISORDER, LAST 04/20. Hypothyroid, UNSURE OF DIAGNOSIS, NO RX YET. History of Any Multi-Drug Resistant Organisms: None Reported Past Surgical History: Cholecystectomy, Hysterectomy, Orthopedic Surgery Additional Past Surgical History / Comment(s): ORIF RT Hand. ORIF LT Foot. Past Anesthesia/Blood Transfusion Reactions: No Reported Reaction Past Psychological History: Anxiety Smoking Status: Current every day smoker Past Alcohol Use History: None Reported Past Drug Use History: Marijuana - Past Family History Mother Family Medical History: Deep Vein Thrombosis (DVT), Hypertension Father Family Medical History: Cancer Additional Family Medical History / Comment(s): ? Bone cancer, no biopsy done General Exam Limitations: no limitations General appearance: alert, in no apparent distress Head exam: Present: atraumatic, normocephalic, normal inspection Eye exam: Present: normal appearance, PERRL, EOMI. Absent: scleral icterus, periorbital swelling ENT exam: Present: other (Patient is a left-sided) Neck exam: Present: normal inspection, full ROM. Absent: tenderness Respiratory exam: Present: normal lung sounds bilaterally. Absent: respiratory distress, wheezes, rales, rhonchi, stridor Cardiovascular Exam: Present: regular rate, normal rhythm, normal heart sounds. Absent: systolic murmur, diastolic murmur, rubs, gallop, clicks Neurological exam: Present: alert, oriented X3, CN II-XII intact Expanded Patient oriented to: Present: person, place, time Speech: Present: fluid speech Cranial nerves: EOM's Intact: Normal, Tongue Deviation: Normal, Facial Sensation: Normal Cerebellar function: Finger to Nose: Normal, Heel to Diaz: Normal Motor strength exam: RUE: 5, LUE: 5, RLE: 5, LLE: 5 Eye Response: (4) open spontaneously Motor Response: (6) obeys commands Verbal Response: (5) oriented Hopkins Total: 15 Psychiatric exam: Present: normal affect, normal mood Skin exam: Present: warm, dry, intact, normal color. Absent: rash Course Vital Signs 08/17/21 13:16 Temperature 98.2 F Pulse Rate 78 Respiratory 18 Rate Blood Pressure 111/69 O2 Sat by Pulse 98 Oximetry Medical Decision Making - Medical Decision Making Patient is a 36-year-old female presenting with chief complaint of seizure. She has a history of seizure disorder for which he takes Keppra and Ventolin. Darlene ent states it felt different after the seizure, this included headache, bleeding from the nostrils, bump on the head. On examination there are no focal neurological deficits, patient bit the side of her left tongue, there is an abrasion there. Lab work is unremarkable. Urine toxicology is positive for marijuana. Gabapentin and Keppra levels are sent out. CT of the brain and cervical spine without contrast is negative for any acute process. Patient appears stable for discharge at this time. Follow-up with PCP and neurology. Report back to ER if any new or worsening symptoms. Discussed return parameters answered all questions. Patient conveyed verbal understanding and agreed to the plan. I discussed this case with my attending Dr. Patricia. - Lab Data Result diagrams: 08/17/21 16:25 08/17/21 16:25 Lab Results 08/17/21 08/17/21 08/17/21 Range/Units 16:25 16:25 16:36 WBC 12.1 H (3.8-10.6) k/uL RBC 4.09 (3.80-5.40) m/uL Hgb 12.7 (11.4-16.0) gm/dL Hct 38.4 (34.0-46.0) % MCV 93.9 (80.0-100.0) fL MCH 31.1 (25.0-35.0) pg MCHC 33.1 (31.0-37.0) g/dL RDW 13.1 (11.5-15.5) % Plt Count 345 (150-450) k/uL MPV 7.0 Neutrophils % 70 % Lymphocytes % 15 % Monocytes % 3 % Eosinophils % 9 % Basophils % 2 % Neutrophils # 8.5 H (1.3-7.7) k/uL Lymphocytes # 1.8 (1.0-4.8) k/uL Monocytes # 0.4 (0-1.0) k/uL Eosinophils # 1.1 H (0-0.7) k/uL Basophils # 0.2 (0-0.2) k/uL Sodium 140 (137-145) mmol/L Potassium 4.2 (3.5-5.1) mmol/L Chloride 109 H (98-107) mmol/L Carbon Dioxide 25 (22-30) mmol/L Anion Gap 6 mmol/L BUN 7 (7-17) mg/dL Creatinine 0.80 (0.52-1.04) mg/dL Est GFR (CKD-EPI)AfAm >90 (>60 ml/min/1.73 sqM) Est GFR (CKD-EPI)NonAf >90 (>60 ml/min/1.73 sqM) Glucose 89 (74-99) mg/dL POC Glucose (mg/dL) (70-110) mg/dL POC Glu Industrial Hygienist ID Calcium 9.8 (8.4-10.2) mg/dL Magnesium 2.1 (1.6-2.3) mg/dL Total Bilirubin 0.4 (0.2-1.3) mg/dL AST 22 (14-36) U/L ALT 14 (4-34) U/L Alkaline Phosphatase 68 (38-126) U/L Total Protein 7.7 (6.3-8.2) g/dL Albumin 4.5 (3.5-5.0) g/dL Urine Color Light Yellow Urine Appearance Clear (Clear) Urine pH 5.0 (5.0-8.0) Ur Specific Dickinson 1.010 (1.001-1.035) Urine Protein Negative (Negative) Urine Glucose (UA) Negative (Negative) Urine Ketones Negative (Negative) Urine Blood Negative (Negative) Urine Nitrite Negative (Negative) Urine Bilirubin Negative (Negative) Urine Urobilinogen <2.0 (<2.0) mg/dL Ur Leukocyte Esterase Negative (Negative) Urine Opiates Screen Not Detected (NotDetected) Ur Oxycodone Screen Not Detected (NotDetected) Urine Methadone Screen Not Detected (NotDetected) Ur Propoxyphene Screen Not Detected (NotDetected) Ur Barbiturates Screen Not Detected (NotDetected) U Tricyclic Antidepress Not Detected (NotDetected) Ur Phencyclidine Scrn Not Detected (NotDetected) Ur Amphetamines Screen Not Detected (NotDetected) U Methamphetamines Scrn Not Detected (NotDetected) U Benzodiazepines Scrn Not Detected (NotDetected) Urine Cocaine Screen Not Detected (NotDetected) U Marijuana (THC) Screen Detected H (NotDetected) 08/17/21 Range/Units 16:37 WBC (3.8-10.6) k/uL RBC (3.80-5.40) m/uL Hgb (11.4-16.0) gm/dL Hct (34.0-46.0) % MCV (80.0-100.0) fL MCH (25.0-35.0) pg MCHC (31.0-37.0) g/dL RDW (11.5-15.5) % Plt Count (150-450) k/uL MPV Neutrophils % % Lymphocytes % % Monocytes % % Eosinophils % % Basophils % % Neutrophils # (1.3-7.7) k/uL Lymphocytes # (1.0-4.8) k/uL Monocytes # (0-1.0) k/uL Eosinophils # (0-0.7) k/uL Basophils # (0-0.2) k/uL Sodium (137-145) mmol/L Potassium (3.5-5.1) mmol/L Chloride (98-107) mmol/L Carbon Dioxide (22-30) mmol/L Anion Gap mmol/L BUN (7-17) mg/dL Creatinine (0.52-1.04) mg/dL Est GFR (CKD-EPI)AfAm (>60 ml/min/1.73 sqM) Est GFR (CKD-EPI)NonAf (>60 ml/min/1.73 sqM) Glucose (74-99) mg/dL POC Glucose (mg/dL) 90 (70-110) mg/dL POC Glu Industrial Hygienist ID Willing, [place] Calcium (8.4-10.2) mg/dL Magnesium (1.6-2.3) mg/dL Total Bilirubin (0.2-1.3) mg/dL AST (14-36) U/L ALT (4-34) U/L Alkaline Phosphatase (38-126) U/L Total Protein (6.3-8.2) g/dL Albumin (3.5-5.0) g/dL Urine Color Urine Appearance (Clear) Urine pH (5.0-8.0) Ur Specific Dickinson (1.001-1.035) Urine Protein (Negative) Urine Glucose (UA) (Negative) Urine Ketones (Negative) Urine Blood (Negative) Urine Nitrite (Negative) Urine Bilirubin (Negative) Urine Urobilinogen (<2.0) mg/dL Ur Leukocyte Esterase (Negative) Urine Opiates Screen (NotDetected) Ur Oxycodone Screen (NotDetected) Urine Methadone Screen (NotDetected) Ur Propoxyphene Screen (NotDetected) Ur Barbiturates Screen (NotDetected) U Tricyclic Antidepress (NotDetected) Ur Phencyclidine Scrn (NotDetected) Ur Amphetamines Screen (NotDetected) U Methamphetamines Scrn (NotDetected) U Benzodiazepines Scrn (NotDetected) Urine Cocaine Screen (NotDetected) U Marijuana (THC) Screen (NotDetected) Disposition Clinical Impression: Seizure Disposition: HOME SELF-CARE Condition: Good Instructions (If sedation given, give patient instructions): Recurrent Seizures in Adults (ED) Additional Instructions: Follow-up with PCP and neurology. Report back to ER with any new or worsening symptoms. Is patient prescribed a controlled substance at d/c from ED?: No Referrals: Pawel Garcia MD [Primary Care Provider] - 1-2 days Time of Disposition: 18:52
[2021-08-17 19:09] VITALS: BP 109/66; PULSE 69; RESP 20
[2021-08-18 07:07] LABS: Levetiracetam (Keppra) 29.4 ug/mL (3.0-60.0)
== END 2021-08-17 19:09 | disposition home or self-care (01) ==
LOC: EC 13:06
DX: R56.9 Unspecified convulsions (principal); Z91.013 Allergy to seafood; Z91.048 Other nonmedicinal substance allergy status; Z88.9 Allergy status to unspecified drugs, medicaments and biological substances
CPT/HCPCS: 36415; 93005; 80171; 80053; 80177; 83735; 85025; 81003; 80306; 72125; 70450; 99285; 96374; 96361; J1885

== ENCOUNTER 2021-09-26 14:06 | Emergency (ER) | payer OTHER ==
[2021-09-26 15:05] LABS: Basophils # (A) 0.1 k/uL (0-0.2); Basophils % (A) 1 %; Eosinophils # (A) 1.5 k/uL (0-0.7); Eosinophils % (A) 15 %; HCT 39.2 % (34.0-46.0); HGB 13.1 gm/dL (11.4-16.0); Lymphocytes # (A) 1.6 k/uL (1.0-4.8); Lymphocytes % (A) 16 %; MCHC 33.4 g/dL (31.0-37.0); MCV 92.8 fL (80.0-100.0); Mean Platelet Volume 7.3; Monocytes # (A) 0.5 k/uL (0-1.0); Monocytes % (A) 5 %; Neutrophils # (A) 6.1 k/uL (1.3-7.7); Neutrophils % (A) 62 %; Platelet Count 337 k/uL (150-450); RBC 4.22 m/uL (3.80-5.40); WBC 9.8 k/uL (3.8-10.6)
[2021-09-26 15:18] LABS: Albumin 4.4 g/dL (3.5-5.0); Calcium 10.1 mg/dL (8.4-10.2); Potassium 4.3 mmol/L (3.5-5.1); Total Bilirubin 0.4 mg/dL (0.2-1.3); Total Protein 7.4 g/dL (6.3-8.2)
[2021-09-26] MEDS ORDERED: KETOROLAC 15 MG/ML 1 ML VIAL IVP STA (16:00)
[2021-09-26 16:50] LABS: Appearance,Urine Clear (Clear); Bilirubin,Urine Negative (Negative); Blood,Urine Negative (Negative); Color,Urine Yellow; Glucose,Urine (UA) Negative (Negative); Ketones,Urine Negative (Negative); Leukocyte Esterase,Urine Negative (Negative); Nitrite,Urine Negative (Negative); Protein,Urine Trace (Negative); Specific Gravity,Urine 1.026 (1.001-1.035); Urobilinogen,Urine <2.0 mg/dL (<2.0)
[2021-09-26 17:06] LABS: Amphetamine Screen,Urine Not Detected (NotDetected); Barbiturate Screen,Urine Not Detected (NotDetected); Benzodiazepines Screen,Urine Not Detected (NotDetected); Cocaine Screen,Urine Not Detected (NotDetected); Methadone Screen, Urine Not Detected (NotDetected); Opiate Screen,Urine Not Detected (NotDetected); Oxycodone Screen, Urine Not Detected (NotDetected); Phencyclidine Screen,Urine Not Detected (NotDetected); Tricyclic Antidepressant,Urine Not Detected (NotDetected); Urn Cannabinoid Scrn Detected (NotDetected)
[2021-09-26 17:08] VITALS: BP 103/60; PULSE 58; RESP 12; TEMP 97.5
--- NOTE | 2021-09-26 17:22 | ED ---
General Adult HPI - General Chief complaint: Headache Stated complaint: seizure Time Seen by Provider: 09/26/21 14:11 Source: patient, EMS Mode of arrival: EMS Limitations: no limitations - History of Present Illness Initial comments: 36-year-old female with past history of seizure disorder presents to the emergency Department with breakthrough seizure. States that she was at home asleep when she had a breakthrough seizure. Unsure how long it lasted for. Did not injure herself during the seizure. Bit her tongue. No incontinence. Reports that he she had a headache after the seizure therefore presented to the emergency room. States that she comes to the hospital after every seizure. She has had 6 within the past several months. She does not have a neurologist but is scheduled to see Dr. Truong on October 05 she takes Keppra 1500 mg twice daily. Also on gabapentin. Denies concern for . No changes in her bowel or bladder habits. No recent head trauma. Denies any symptoms new or different from her breakthrough seizures. No fevers. No other alleviating, precipitating or modifying factors - Related Data Home Medications Medication Instructions Recorded Confirmed levETIRAcetam [Keppra] 1,500 mg PO Q12HR 07/11/20 08/17/21 Meclizine [Antivert] 12.5 mg PO Q8H PRN 05/12/21 08/17/21 Gabapentin 300 mg PO QID 08/17/21 08/17/21 Allergies Allergy/AdvReac Type Severity Reaction Status Date / Time shellfish derived [Shellfish] Allergy Intermediate Rash/Hives Verified 09/26/21 14:09 adhesive Allergy Mild Rash/Hives Verified 09/26/21 14:09 oxycodone Allergy Rash/Hives Verified 09/26/21 14:10 PAPER TAPE Allergy Mild Rash/Hives Uncoded 09/26/21 14:09 Review of Systems ROS Statement: Those systems with pertinent positive or pertinent negative responses have been documented in the HPI. ROS Other: All systems not noted in ROS Statement are negative. Past Medical History Past Medical History: GERD/Reflux, Seizure Disorder, Thyroid Disorder Additional Past Medical History / Comment(s): Seizure DISORDER, LAST . Hypothyroid, History of Any Multi-Drug Resistant Organisms: None Reported Past Surgical History: Cholecystectomy, Hysterectomy, Orthopedic Surgery Additional Past Surgical History / Comment(s): ORIF RT Hand. ORIF LT Foot. Past Anesthesia/Blood Transfusion Reactions: No Reported Reaction Past Psychological History: Anxiety Smoking Status: Current every day smoker Past Alcohol Use History: None Reported Past Drug Use History: Marijuana - Past Family History Mother Family Medical History: Deep Vein Thrombosis (DVT), Hypertension Father Family Medical History: Cancer Additional Family Medical History / Comment(s): ? Bone cancer, no biopsy done General Exam Limitations: no limitations General appearance: alert, in no apparent distress Head exam: Present: atraumatic, normocephalic, normal inspection Eye exam: Present: normal appearance, PERRL, EOMI. Absent: scleral icterus, conjunctival injection, periorbital swelling ENT exam: Present: normal exam, mucous membranes moist Neck exam: Present: normal inspection. Absent: tenderness, meningismus, lymphadenopathy Respiratory exam: Present: normal lung sounds bilaterally. Absent: respiratory distress, wheezes, rales, rhonchi, stridor Cardiovascular Exam: Present: regular rate, normal rhythm, normal heart sounds. Absent: systolic murmur, diastolic murmur, rubs, gallop, clicks GI/Abdominal exam: Present: soft, normal bowel sounds. Absent: distended, tenderness, guarding, rebound, rigid Extremities exam: Present: normal inspection, full ROM, normal capillary refill. Absent: tenderness, pedal edema, joint swelling, calf tenderness Back exam: Present: normal inspection Neurological exam: Present: alert, oriented X3, CN II-XII intact Psychiatric exam: Present: normal affect, normal mood Skin exam: Present: warm, dry, intact, normal color. Absent: rash Course Vital Signs 09/26/21 09/26/21 09/26/21 14:10 14:55 16:05 Temperature 98.0 F Pulse Rate 75 60 54 L Respiratory 18 16 16 Rate Blood Pressure 110/70 102/62 O2 Sat by Pulse 91 L 92 L Oximetry 09/26/21 17:08 Temperature 97.5 F L Pulse Rate 58 L Respiratory 12 Rate Blood Pressure 103/60 O2 Sat by Pulse 93 L Oximetry Medical Decision Making - Medical Decision Making Upon arrival patient was placed into room 17. No seizure-like activity upon presentation. Denies any missed doses of her medication. Laboratory studies are conducted and reviewed. Patient was given Toradol for headache. Patient will be discharged home and needs to follow-up with her neurologist at her scheduled appointment. Discussed with her primary care additional antiepileptic medications. Return for any new or worsening symptoms. Patient agreed was discharged home in stable condition - Lab Data Result diagrams: 09/26/21 14:56 09/26/21 14:56 Lab Results 09/26/21 09/26/21 09/26/21 Range/Units 14:56 14:56 14:56 WBC 9.8 (3.8-10.6) k/uL RBC 4.22 (3.80-5.40) m/uL Hgb 13.1 (11.4-16.0) gm/dL Hct 39.2 (34.0-46.0) % MCV 92.8 (80.0-100.0) fL MCH 31.0 (25.0-35.0) pg MCHC 33.4 (31.0-37.0) g/dL RDW 13.0 (11.5-15.5) % Plt Count 337 (150-450) k/uL MPV 7.3 Neutrophils % 62 % Lymphocytes % 16 % Monocytes % 5 % Eosinophils % 15 % Basophils % 1 % Neutrophils # 6.1 (1.3-7.7) k/uL Lymphocytes # 1.6 (1.0-4.8) k/uL Monocytes # 0.5 (0-1.0) k/uL Eosinophils # 1.5 H (0-0.7) k/uL Basophils # 0.1 (0-0.2) k/uL Sodium 140 (137-145) mmol/L Potassium 4.3 (3.5-5.1) mmol/L Chloride 107 (98-107) mmol/L Carbon Dioxide 26 (22-30) mmol/L Anion Gap 7 mmol/L BUN 15 (7-17) mg/dL Creatinine 0.96 (0.52-1.04) mg/dL Est GFR (CKD-EPI)AfAm 87 (>60 ml/min/1.73 sqM) Est GFR (CKD-EPI)NonAf 76 (>60 ml/min/1.73 sqM) Glucose 85 (74-99) mg/dL Calcium 10.1 (8.4-10.2) mg/dL Total Bilirubin 0.4 (0.2-1.3) mg/dL AST 21 (14-36) U/L ALT 12 (4-34) U/L Alkaline Phosphatase 69 (38-126) U/L Total Protein 7.4 (6.3-8.2) g/dL Albumin 4.4 (3.5-5.0) g/dL Urine Color Urine Appearance (Clear) Urine pH (5.0-8.0) Ur Specific [place] (1.001-1.035) Urine Protein (Negative) Urine Glucose (UA) (Negative) Urine Ketones (Negative) Urine Blood (Negative) Urine Nitrite (Negative) Urine Bilirubin (Negative) Urine Urobilinogen (<2.0) mg/dL Ur Leukocyte Esterase (Negative) Urine Opiates Screen (NotDetected) Ur Oxycodone Screen (NotDetected) Urine Methadone Screen (NotDetected) Ur Propoxyphene Screen (NotDetected) Ur Barbiturates Screen (NotDetected) U Tricyclic Antidepress (NotDetected) Levetiracetam 39.7 (3.0-60.0) ug/mL Ur Phencyclidine Scrn (NotDetected) Ur Amphetamines Screen (NotDetected) U Methamphetamines Scrn (NotDetected) U Benzodiazepines Scrn (NotDetected) Urine Cocaine Screen (NotDetected) U Marijuana (THC) Screen (NotDetected) 09/26/21 Range/Units 16:45 WBC (3.8-10.6) k/uL RBC (3.80-5.40) m/uL Hgb (11.4-16.0) gm/dL Hct (34.0-46.0) % MCV (80.0-100.0) fL MCH (25.0-35.0) pg MCHC (31.0-37.0) g/dL RDW (11.5-15.5) % Plt Count (150-450) k/uL MPV Neutrophils % % Lymphocytes % % Monocytes % % Eosinophils % % Basophils % % Neutrophils # (1.3-7.7) k/uL Lymphocytes # (1.0-4.8) k/uL Monocytes # (0-1.0) k/uL Eosinophils # (0-0.7) k/uL Basophils # (0-0.2) k/uL Sodium (137-145) mmol/L Potassium (3.5-5.1) mmol/L Chloride (98-107) mmol/L Carbon Dioxide (22-30) mmol/L Anion Gap mmol/L BUN (7-17) mg/dL Creatinine (0.52-1.04) mg/dL Est GFR (CKD-EPI)AfAm (>60 ml/min/1.73 sqM) Est GFR (CKD-EPI)NonAf (>60 ml/min/1.73 sqM) Glucose (74-99) mg/dL Calcium (8.4-10.2) mg/dL Total Bilirubin (0.2-1.3) mg/dL AST (14-36) U/L ALT (4-34) U/L Alkaline Phosphatase (38-126) U/L Total Protein (6.3-8.2) g/dL Albumin (3.5-5.0) g/dL Urine Color Yellow Urine Appearance Clear (Clear) Urine pH 8.0 (5.0-8.0) Ur Specific [place] 1.026 (1.001-1.035) Urine Protein Trace H (Negative) Urine Glucose (UA) Negative (Negative) Urine Ketones Negative (Negative) Urine Blood Negative (Negative) Urine Nitrite Negative (Negative) Urine Bilirubin Negative (Negative) Urine Urobilinogen <2.0 (<2.0) mg/dL Ur Leukocyte Esterase Negative (Negative) Urine Opiates Screen Not Detected (NotDetected) Ur Oxycodone Screen Not Detected (NotDetected) Urine Methadone Screen Not Detected (NotDetected) Ur Propoxyphene Screen Not Detected (NotDetected) Ur Barbiturates Screen Not Detected (NotDetected) U Tricyclic Antidepress Not Detected (NotDetected) Levetiracetam (3.0-60.0) ug/mL Ur Phencyclidine Scrn Not Detected (NotDetected) Ur Amphetamines Screen Not Detected (NotDetected) U Methamphetamines Scrn Not Detected (NotDetected) U Benzodiazepines Scrn Not Detected (NotDetected) Urine Cocaine Screen Not Detected (NotDetected) U Marijuana (THC) Screen Detected H (NotDetected) Disposition Clinical Impression: Breakthrough seizure Disposition: HOME SELF-CARE Condition: Stable Instructions (If sedation given, give patient instructions): Seizure/Epilepsy Discharge Instructions & Follow-Up Additional Instructions: Take your medications as directed. Follow up with Dr. Truong at your appointment. Return for any new or worsening symptoms Is patient prescribed a controlled substance at d/c from ED?: No Referrals: Pawel Garcia MD [Primary Care Provider] - 1-2 days Jessica Olson MD [REFERRING] - 1-2 days Time of Disposition: 17:22
== END 2021-09-26 17:31 | disposition home or self-care (01) ==
LOC: EC 14:06
DX: G40.909 Epilepsy, unspecified, not intractable, without status epilepticus (principal); R51.9 Headache, unspecified; F17.200 Nicotine dependence, unspecified, uncomplicated; K21.9 Gastro-esophageal reflux disease without esophagitis; Z91.013 Allergy to seafood; Z91.09 Other allergy status, other than to drugs and biological substances; Z88.5 Allergy status to narcotic agent; Z79.899 Other long term (current) drug therapy
CPT/HCPCS: 36415; 80053; 80177; 85025; 81003; 80306; 99285; 96374; J1885

== ENCOUNTER 2021-10-28 10:28 | Emergency (ER) | payer OTHER ==
[2021-10-28 10:36] VITALS: BP 110/66; PULSE 52; RESP 20; TEMP 97.4
--- NOTE | 2021-10-28 12:37 | ED ---
General Adult HPI - General Chief complaint: Recheck/Abnormal Lab/Rx Stated complaint: needs seizure meds Time Seen by Provider: 10/28/21 12:09 Source: patient, RN notes reviewed Mode of arrival: ambulatory Limitations: no limitations - History of Present Illness Initial comments: 36-year-old female sent emergency Department with chief complaint of knee medication refill. Patient states she is out of her Keppra. Patient has ceased disorder. Patient takes 1500 mg twice daily. Patient has not had any recent seizures. Patient offers no other associated complaints. - Related Data Home Medications Medication Instructions Recorded Confirmed levETIRAcetam [Keppra] 1,500 mg PO Q12HR 07/11/20 08/17/21 Meclizine [Antivert] 12.5 mg PO Q8H PRN 05/12/21 08/17/21 Gabapentin 300 mg PO QID 08/17/21 08/17/21 Previous Rx's Medication Instructions Recorded levETIRAcetam [Keppra] 1,500 mg PO Q12HR #120 tab 10/28/21 Allergies Allergy/AdvReac Type Severity Reaction Status Date / Time shellfish derived [Shellfish] Allergy Intermediate Rash/Hives Verified 10/28/21 10:36 adhesive Allergy Mild Rash/Hives Verified 10/28/21 10:36 oxycodone Allergy Rash/Hives Verified 10/28/21 10:36 PAPER TAPE Allergy Mild Rash/Hives Uncoded 10/28/21 10:36 Review of Systems ROS Statement: Those systems with pertinent positive or pertinent negative responses have been documented in the HPI. ROS Other: All systems not noted in ROS Statement are negative. Past Medical History Past Medical History: GERD/Reflux, Seizure Disorder, Thyroid Disorder Additional Past Medical History / Comment(s): Seizure DISORDER, LAST . Hypothyroid, History of Any Multi-Drug Resistant Organisms: None Reported Past Surgical History: Cholecystectomy, Hysterectomy, Orthopedic Surgery Additional Past Surgical History / Comment(s): ORIF RT Hand. ORIF LT Foot. Past Anesthesia/Blood Transfusion Reactions: No Reported Reaction Past Psychological History: Anxiety Smoking Status: Current every day smoker Past Alcohol Use History: None Reported Past Drug Use History: Marijuana - Past Family History Mother Family Medical History: Deep Vein Thrombosis (DVT), Hypertension Father Family Medical History: Cancer Additional Family Medical History / Comment(s): ? Bone cancer, no biopsy done General Exam Limitations: no limitations General appearance: alert, in no apparent distress Head exam: Present: atraumatic, normocephalic, normal inspection Neck exam: Present: normal inspection. Absent: tenderness, meningismus, lymphadenopathy Respiratory exam: Present: normal lung sounds bilaterally. Absent: respiratory distress, wheezes, rales, rhonchi, stridor Cardiovascular Exam: Present: regular rate, normal rhythm, normal heart sounds. Absent: systolic murmur, diastolic murmur, rubs, gallop, clicks Course Vital Signs 10/28/21 10:34 Temperature 97.4 F L Pulse Rate 52 L Respiratory 20 Rate Blood Pressure 110/66 O2 Sat by Pulse 99 Oximetry Medical Decision Making - Medical Decision Making Patient was given refill for one month. Patient advised to follow-up with physician for further prescriptions. Patient agrees to plan. Disposition Clinical Impression: Seizure disorder, Medication refill Disposition: HOME SELF-CARE Condition: Stable Additional Instructions: Please return to the Emergency Department if symptoms worsen or any other concerns. Prescriptions: levETIRAcetam [Keppra] 1,500 mg PO Q12HR #120 tab Is patient prescribed a controlled substance at d/c from ED?: No Referrals: None,Stated [Primary Care Provider] - 1-2 days Time of Disposition: 12:37
== END 2021-10-28 13:03 | disposition home or self-care (01) ==
LOC: EC 10:28
DX: Z76.0 Encounter for issue of repeat prescription (principal); G40.909 Epilepsy, unspecified, not intractable, without status epilepticus; K21.9 Gastro-esophageal reflux disease without esophagitis; E07.9 Disorder of thyroid, unspecified; F41.9 Anxiety disorder, unspecified; F17.200 Nicotine dependence, unspecified, uncomplicated; F12.90 Cannabis use, unspecified, uncomplicated; Z91.013 Allergy to seafood; Z88.8 Allergy status to other drugs, medicaments and biological substances; Z88.5 Allergy status to narcotic agent; Z91.048 Other nonmedicinal substance allergy status; Z79.899 Other long term (current) drug therapy
CPT/HCPCS: 99281

== ENCOUNTER 2021-11-01 13:21 | Emergency (ER) | payer OTHER ==
--- NOTE | 2021-11-01 14:12 | ED ---
General Adult HPI - General Chief complaint: Seizure Stated complaint: Seizures Time Seen by Provider: 11/01/21 13:44 Source: patient, EMS Mode of arrival: EMS Limitations: no limitations - History of Present Illness Initial comments: Dictation was produced using [employer] dictation software. please excuse any grammatical, word or spelling errors. Chief Complaint: 36-year-old female past medical history of seizure disorder presents to emergency department with seizure History of Present Illness: 36-year-old female she has history of seizure disorder. Patient has seizures often. She has seizures as often as once every 2 weeks. Patient takes Keppra 3000 mg. Patient is scheduled to see a new neurologist, Dr. Olson in the near future. Patient is a history of seizures for over 10 years. Patient had a seizure today. She woke up us that she had a cut over her left periorbital area. Patient states she feels at baseline now. Not uncommon for her to have a seizure. She wanted to be evaluated today dizziness small laceration over her left periorbital area. Patient states she's been for a stress that recently due to left stressors. She has not been sleeping well. She has been eating well. She has been compliant with her Keppra medications. The ROS documented in this emergency department record has been reviewed and confirmed by me. Those systems with pertinent positive or negative responses have been documented in the HPI. All other systems are other negative and/or noncontributory. PHYSICAL EXAM: General Impression: Alert and oriented x3, not in acute distress HEENT: One millimeter laceration to the left periorbital area just over the lateral lower left eyelid, extra-ocular movements intact, pupils equal and reactive to light bilaterally, mucous membranes moist. Cardiovascular: Heart regular rate and rhythm Chest: Able to complete full sentences, no retractions, no tachypnea Abdomen: abdomen soft, non-tender, non-distended, no organomegaly Musculoskeletal: Pulses present and equal in all extremities, no peripheral edema Motor: no focal deficits noted Neurological: CN II-XII grossly intact, no focal motor or sensory deficits noted Skin: Intact with no visualized rashes Psych: Normal affect and mood ED course: 36-year-old male presents emergency Department with seizure. She has a history of seizures. She has frequent seizures. Upon arrival are within acceptable limits. Patient is small laceration of her left lower lateral eyelid repaired with Steri-Strip. Laboratory evaluation obtained. Mild leukocytosis of 15.0 likely secondary to stress. Metabolic panel is unremarkable. Patient has a beta Quant of 4.5. Patient told of these results. Patient observed in emergency department for approximately 30 minutes. Reevaluated at bedside at 3:00 PM found stable medical condition. EKG interpretation: Ventricular rate 58, sinus bradycardia,. Interval 196, QS 104, QTC 400. No TX prolongation, no QTC prolongation, no ST or T-wave changes noted. Overall, this EKG is unremarkable - Related Data Home Medications Medication Instructions Recorded Confirmed levETIRAcetam [Keppra] 1,500 mg PO Q12HR 07/11/20 08/17/21 Meclizine [Antivert] 12.5 mg PO Q8H PRN 05/12/21 08/17/21 Gabapentin 300 mg PO QID 08/17/21 08/17/21 Previous Rx's Medication Instructions Recorded levETIRAcetam [Keppra] 1,500 mg PO Q12HR #120 tab 10/28/21 Allergies Allergy/AdvReac Type Severity Reaction Status Date / Time shellfish derived [Shellfish] Allergy Intermediate Rash/Hives Verified 10/28/21 10:36 adhesive Allergy Mild Rash/Hives Verified 10/28/21 10:36 oxycodone Allergy Rash/Hives Verified 10/28/21 10:36 PAPER TAPE Allergy Mild Rash/Hives Uncoded 10/28/21 10:36 Review of Systems ROS Statement: Those systems with pertinent positive or pertinent negative responses have been documented in the HPI. ROS Other: All systems not noted in ROS Statement are negative. Past Medical History Past Medical History: GERD/Reflux, Seizure Disorder, Thyroid Disorder Additional Past Medical History / Comment(s): Seizure DISORDER, LAST . Hypothyroid, History of Any Multi-Drug Resistant Organisms: None Reported Past Surgical History: Cholecystectomy, Hysterectomy, Orthopedic Surgery Additional Past Surgical History / Comment(s): ORIF RT Hand. ORIF LT Foot. Past Anesthesia/Blood Transfusion Reactions: No Reported Reaction Past Psychological History: Anxiety Smoking Status: Current every day smoker Past Alcohol Use History: None Reported Past Drug Use History: Marijuana - Past Family History Mother Family Medical History: Deep Vein Thrombosis (DVT), Hypertension Father Family Medical History: Cancer Additional Family Medical History / Comment(s): ? Bone cancer, no biopsy done General Exam Limitations: no limitations Course Vital Signs 11/01/21 11/01/21 13:35 14:13 Temperature 97.4 F L Pulse Rate 78 Respiratory 16 Rate Blood Pressure 91/54 89/55 O2 Sat by Pulse 98 Oximetry Medical Decision Making - Lab Data Result diagrams: 11/01/21 14:11 11/01/21 14:11 Lab Results 11/01/21 11/01/21 Range/Units 14:11 14:11 WBC 15.0 H (3.8-10.6) k/uL RBC 4.25 (3.80-5.40) m/uL Hgb 13.1 (11.4-16.0) gm/dL Hct 39.5 (34.0-46.0) % MCV 93.0 (80.0-100.0) fL MCH 30.8 (25.0-35.0) pg MCHC 33.1 (31.0-37.0) g/dL RDW 12.9 (11.5-15.5) % Plt Count 302 (150-450) k/uL MPV 7.5 Neutrophils % 80 % Lymphocytes % 8 % Monocytes % 4 % Eosinophils % 6 % Basophils % 1 % Neutrophils # 12.0 H (1.3-7.7) k/uL Lymphocytes # 1.2 (1.0-4.8) k/uL Monocytes # 0.6 (0-1.0) k/uL Eosinophils # 0.9 H (0-0.7) k/uL Basophils # 0.1 (0-0.2) k/uL Sodium 141 (137-145) mmol/L Potassium 3.6 (3.5-5.1) mmol/L Chloride 107 (98-107) mmol/L Carbon Dioxide 23 (22-30) mmol/L Anion Gap 11 mmol/L BUN 11 (7-17) mg/dL Creatinine 0.94 (0.52-1.04) mg/dL Est GFR (CKD-EPI)AfAm 90 (>60 ml/min/1.73 sqM) Est GFR (CKD-EPI)NonAf 78 (>60 ml/min/1.73 sqM) Glucose 89 (74-99) mg/dL Calcium 9.2 (8.4-10.2) mg/dL HCG, Quant 4.5 mIU/mL Disposition Clinical Impression: Recurrent seizures Disposition: HOME SELF-CARE Condition: Good Instructions (If sedation given, give patient instructions): Recurrent Seizures in Adults (ED) Is patient prescribed a controlled substance at d/c from ED?: No Referrals: None,Stated [Primary Care Provider] - 1-2 days Time of Disposition: 14:58
[2021-11-01 14:22] LABS: Basophils # (A) 0.1 k/uL (0-0.2); Basophils % (A) 1 %; Eosinophils # (A) 0.9 k/uL (0-0.7); Eosinophils % (A) 6 %; HCT 39.5 % (34.0-46.0); HGB 13.1 gm/dL (11.4-16.0); Lymphocytes # (A) 1.2 k/uL (1.0-4.8); Lymphocytes % (A) 8 %; MCH 30.8 pg (25.0-35.0); MCHC 33.1 g/dL (31.0-37.0); Mean Platelet Volume 7.5; Monocytes # (A) 0.6 k/uL (0-1.0); Monocytes % (A) 4 %; Neutrophils % (A) 80 %; Platelet Count 302 k/uL (150-450); RBC 4.25 m/uL (3.80-5.40); RDW 12.9 % (11.5-15.5)
[2021-11-01 14:32] LABS: Calcium 9.2 mg/dL (8.4-10.2); Potassium 3.6 mmol/L (3.5-5.1)
[2021-11-01 14:49] LABS: HCG,Quantitative Serum 4.5 mIU/mL
[2021-11-01 16:11] VITALS: BP 92/60; PULSE 68; RESP 18; TEMP 98.4
== END 2021-11-01 16:07 | disposition home or self-care (01) ==
LOC: EC 13:21
DX: S01.112A Laceration without foreign body of left eyelid and periocular area, initial encounter (principal); G40.909 Epilepsy, unspecified, not intractable, without status epilepticus; D72.829 Elevated white blood cell count, unspecified; R00.1 Bradycardia, unspecified; E03.9 Hypothyroidism, unspecified; F17.200 Nicotine dependence, unspecified, uncomplicated; Z79.891 Long term (current) use of opiate analgesic; Z91.013 Allergy to seafood; Z91.048 Other nonmedicinal substance allergy status; Z88.5 Allergy status to narcotic agent; X58.XXXA Exposure to other specified factors, initial encounter
CPT/HCPCS: 36415; 80048; 84702; 85025; 99285

== ENCOUNTER → 2021-12-04 | Outpatient (CLI) | payer OTHER ==
[2021-12-05 09:19] LABS: Levetiracetam (Keppra) 20.7 ug/mL (3.0-60.0)
== END | disposition home or self-care (01) ==
LOC: LABWHC1 08:37
PROVIDERS: ATTEND Psychiatry & Neurology Neurology
DX: G40.009 Localization-related (focal) (partial) idiopathic epilepsy and epileptic syndromes with seizures of localized onset, not intractable, without status epilepticus (principal)
CPT/HCPCS: 36415; 80177; 80235

== ENCOUNTER → 2021-12-14 | Outpatient (CLI) | payer OTHER ==
--- NOTE | 2021-12-14 13:04 | MR ---
EXAMINATION TYPE: MR brain wo con DATE OF EXAM: 12/14/2021 12:08 PM COMPARISON: CT brain C-spine 08/17/2021. CLINICAL INDICATION:Female, 36 years old with history of G40.009 LOCAL-REL IDIO EPI W SEIZ OF LOC ONS T; PHH, TECHNIQUE: Multi planar, multi sequence imaging was performed through the brain including: T1, T2, In version recovery, Diffusion weighted imaging, and gradient echo imaging. No gadolinium was given. FINDINGS: The ernandez-white junctions, ventricular system, and cisterns appear unremarkable. Multiple T2/FLAIR hy perintense foci demonstrated within the predominantly subcortical and periventricular white matter wi th largest in the right frontal lobe subcortical white matter measuring up to 8 mm. No evidence for m esial temporal sclerosis. Patchy areas of high T2 signal intensity are seen within the periventricula r white matter. Midline structures show no abnormality. Diffusion-weighted imaging shows no evidence of restricted diffusion. The bone marrow signal is within normal limits. The paranasal sinuses and globes are unremarkable. Bi lateral mastoid effusions. IMPRESSION: 1. No evidence of intracranial mass or acute/subacute infarct. 2. Multiple subcortical and periventricular nonspecific white matter hyperintense foci. Etiologies in clude epilepsy, demyelinating disease, CADASIL, versus other etiologies. Continued workup is recommen ded. 3. Bilateral mastoid effusions.
== END | disposition home or self-care (01) ==
LOC: RADMRIMAIN 11:29
PROVIDERS: ATTEND Psychiatry & Neurology Neurology
DX: G40.009 Localization-related (focal) (partial) idiopathic epilepsy and epileptic syndromes with seizures of localized onset, not intractable, without status epilepticus (principal)
CPT/HCPCS: 70551

== ENCOUNTER 2022-03-17 11:10 | Emergency (ER) | payer OTHER ==
[2022-03-17 11:18] VITALS: TEMP 98.9
--- NOTE | 2022-03-17 11:46 | ED ---
Seizure HPI - General Chief Complaint: Seizure Stated Complaint: seizure Time Seen by Provider: 03/17/22 11:29 Source: patient, EMS, RN notes reviewed Mode of arrival: EMS Limitations: no limitations - History of Present Illness Initial Comments: This is a 36-year-old female presents emergency Department via EMS chief complaint seizure. Patient has a history of seizures sees Dr. Truong. Patient is on Vimpat and Keppra has not missed any doses. Patient states that she did bite her tongue. Patient states that she had a breakthrough seizure couple weeks ago. She is scheduled for an appointment with the neurologist on Tuesday. Denies any other complaints or chest pain shortness breath nausea vomiting. - Related Data Home Medications Medication Instructions Recorded Confirmed levETIRAcetam [Keppra] 1,500 mg PO Q12HR 07/11/20 08/17/21 Meclizine [Antivert] 12.5 mg PO Q8H PRN 05/12/21 08/17/21 Gabapentin 300 mg PO QID 08/17/21 08/17/21 Previous Rx's Medication Instructions Recorded levETIRAcetam [Keppra] 1,500 mg PO Q12HR #120 tab 10/28/21 Allergies Allergy/AdvReac Type Severity Reaction Status Date / Time shellfish derived [Shellfish] Allergy Intermediate Rash/Hives Verified 03/17/22 11:18 adhesive Allergy Mild Rash/Hives Verified 03/17/22 11:18 oxycodone Allergy Rash/Hives Verified 03/17/22 11:18 PAPER TAPE Allergy Mild Rash/Hives Uncoded 03/17/22 11:18 Review of Systems ROS Statement: Those systems with pertinent positive or pertinent negative responses have been documented in the HPI. ROS Other: All systems not noted in ROS Statement are negative. Past Medical History Past Medical History: GERD/Reflux, Seizure Disorder, Thyroid Disorder Additional Past Medical History / Comment(s): Seizure DISORDER, LAST . Hypothyroid, History of Any Multi-Drug Resistant Organisms: None Reported Past Surgical History: Cholecystectomy, Hysterectomy, Orthopedic Surgery Additional Past Surgical History / Comment(s): ORIF RT Hand. ORIF LT Foot. Past Anesthesia/Blood Transfusion Reactions: No Reported Reaction Past Psychological History: Anxiety Smoking Status: Current every day smoker Past Alcohol Use History: None Reported Past Drug Use History: Marijuana - Past Family History Mother Family Medical History: Deep Vein Thrombosis (DVT), Hypertension Father Family Medical History: Cancer Additional Family Medical History / Comment(s): ? Bone cancer, no biopsy done General Exam Limitations: no limitations General appearance: alert, in no apparent distress Head exam: Present: atraumatic, normocephalic, normal inspection Eye exam: Present: normal appearance, PERRL, EOMI. Absent: scleral icterus, conjunctival injection, periorbital swelling ENT exam: Present: mucous membranes moist. Absent: normal exam, normal oroph arynx (Tongue laceration on the right, very minimal, no active bleeding) Neck exam: Present: normal inspection, full ROM. Absent: tenderness, meningismus, lymphadenopathy Respiratory exam: Present: normal lung sounds bilaterally. Absent: respiratory distress, wheezes, rales, rhonchi, stridor Cardiovascular Exam: Present: regular rate, normal rhythm, normal heart sounds. Absent: systolic murmur, diastolic murmur, rubs, gallop, clicks GI/Abdominal exam: Present: soft, normal bowel sounds. Absent: distended, tenderness, guarding, rebound, rigid Neurological exam: Present: alert, oriented X3, CN II-XII intact, reflexes normal. Absent: motor sensory deficit Course Vital Signs 03/17/22 11:16 Temperature 98.9 F Pulse Rate 96 Respiratory 22 Rate Blood Pressure 95/69 O2 Sat by Pulse 99 Oximetry Medical Decision Making - Medical Decision Making Was pt. sent in by a medical professional or institution (, PA, BUSINESS MANAGER, urgent care, hospital, or alf...) When possible be specific @ -No Did you speak to anyone other than the patient for history (EMS, parent, family, police, friend...)? What history was obtained from this source @ -No Did you review nursing and triage notes (agree or disagree)? Why? @ -I reviewed and agree with nursing and triage notes Were old charts reviewed (outside hosp., previous admission, EMS record, old EKG, old radiological studies, urgent care reports/EKG's, alf records)? Report findings @ -No old charts were reviewed Differential Diagnosis (chest pain, altered mental status, abdominal pain women, abdominal pain men, vaginal bleeding, weakness, fever, dyspnea, syncope, headache, dizziness, GI bleed, back pain, seizure, CVA, palpatations, mental health)? @ -Seizure, pseudoseizure, head injury, laceration, and this list is not all inclusive EKG interpreted by me (3pts min.). @ -EKG interpreted by me and 11:56 sinus rhythm rate of 75 [place] 192 QRS 107 QT/QTC 339/368 X-rays interpreted by me (1pt min.). @ -None done CT interpreted by me (1pt min.). @ -None done U/S interpreted by me (1pt. min.). @ -None done What testing was considered but not performed or refused? (CT, X-rays, U/S, labs)? Why? @ -None What meds were considered but not given or refused? Why? @ -None Did you discuss the management of the patient with other professionals (professionals i.e. , PA, BUSINESS MANAGER, lab, RT, psych nurse, social service worker, boat hoist operator, teacher, sports development officer, mattress spring encaser)? Give summary @ -No Was smoking cessation discussed for >3mins.? @ -No Was critical care preformed (if so, how long)? @ -No Were there social determinants of health that impacted care today? How? (Homelessness, low income, unemployed, alcoholism, drug addiction, transportation, low edu. Level, literacy, decrease access to med. care, [facility], rehab)? @ -No Was there de-escalation of care discussed even if they declined (Discuss DNR or withdrawal of care, Hospice)? DNR status @ -No What co-morbidities impacted this encounter? (DM, HTN, Smoking, COPD, CAD, Cancer, CVA, ARF, Chemo, Hep., AIDS, mental health diagnosis, sleep apnea, morbid obesity)? @ -None Was patient admitted / discharged? Hospital course, mention meds given and route, prescriptions, significant lab abnormalities, going to OR and other pertinent info. @ -Discharged - patient initial workup is negative for acute abnormality. Patient's at her normal baseline. Patient has appointment with her neurologist on Tuesday. Patient advised to contact urology for closer follow-up return parameters discussed. Undiagnosed new problem with uncertain prognosis? @ -No Drug Therapy requiring intensive monitoring for toxicity (Heparin, Nitro, I nsulin, Cardizem)? @ -No Were any procedures done? @ -No Diagnosis/symptom? @ -Seizure Acute, or Chronic, or Acute on Chronic? @ -Acute on chronic Uncomplicated (without systemic symptoms) or Complicated (systemic symptoms)? @ -Uncomplicated Side effects of treatment? @ -No Exacerbation, Progression, or Severe Exacerbation? @ -No Poses a threat to life or bodily function? How? (Chest pain, USA, [place], pneumonia, PE, COPD, DKA, ARF, appy, cholecystitis, CVA, Diverticulitis, Homicidal, Suicidal, threat to staff... and all critical care pts) @ -No - Lab Data Result diagrams: 03/17/22 11:50 03/17/22 11:50 Lab Results 03/17/22 03/17/22 Range/Units 11:50 11:50 WBC 10.2 (3.8-10.6) k/uL RBC 4.74 (3.80-5.40) m/uL Hgb 14.9 (11.4-16.0) gm/dL Hct 43.4 (34.0-46.0) % MCV 91.7 (80.0-100.0) fL MCH 31.5 (25.0-35.0) pg MCHC 34.3 (31.0-37.0) g/dL RDW 12.3 (11.5-15.5) % Plt Count 342 (150-450) k/uL MPV 7.2 Neutrophils % 63 % Lymphocytes % 14 % Monocytes % 5 % Eosinophils % 15 % Basophils % 1 % Neutrophils # 6.4 (1.3-7.7) k/uL Lymphocytes # 1.5 (1.0-4.8) k/uL Monocytes # 0.5 (0-1.0) k/uL Eosinophils # 1.5 H (0-0.7) k/uL Basophils # 0.1 (0-0.2) k/uL Sodium 139 (137-145) mmol/L Potassium 4.8 (3.5-5.1) mmol/L Chloride 108 H (98-107) mmol/L Carbon Dioxide 24 (22-30) mmol/L Anion Gap 7 mmol/L BUN 19 H (7-17) mg/dL Creatinine 0.78 (0.52-1.04) mg/dL Est GFR (CKD-EPI)AfAm >90 (>60 ml/min/1.73 sqM) Est GFR (CKD-EPI)NonAf >90 (>60 ml/min/1.73 sqM) Glucose 93 (74-99) mg/dL Calcium 9.8 (8.4-10.2) mg/dL Magnesium 2.2 (1.6-2.3) mg/dL Total Bilirubin 0.4 (0.2-1.3) mg/dL AST 22 (14-36) U/L ALT 16 (4-34) U/L Alkaline Phosphatase 72 (38-126) U/L Total Protein 7.8 (6.3-8.2) g/dL Albumin 4.5 (3.5-5.0) g/dL Disposition Clinical Impression: Generalized seizure Disposition: HOME SELF-CARE Condition: Stable Instructions (If sedation given, give patient instructions): Recurrent Seizures in Adults (ED) Additional Instructions: Please return to the Emergency Department if symptoms worsen or any other concerns. Is patient prescribed a controlled substance at d/c from ED?: No Referrals: None,Stated [Primary Care Provider] - 1-2 days Time of Disposition: 12:47
[2022-03-17] MEDS ORDERED: levETIRAcetam 500 MG TAB PO STA (11:48)
[2022-03-17] MEDS ORDERED: LORazepam 1 MG TAB PO STA (11:49)
[2022-03-17 12:08] LABS: Basophils # (A) 0.1 k/uL (0-0.2); Basophils % (A) 1 %; Eosinophils # (A) 1.5 k/uL (0-0.7); Eosinophils % (A) 15 %; HCT 43.4 % (34.0-46.0); HGB 14.9 gm/dL (11.4-16.0); Lymphocytes # (A) 1.5 k/uL (1.0-4.8); Lymphocytes % (A) 14 %; MCH 31.5 pg (25.0-35.0); MCHC 34.3 g/dL (31.0-37.0); MCV 91.7 fL (80.0-100.0); Mean Platelet Volume 7.2; Monocytes # (A) 0.5 k/uL (0-1.0); Monocytes % (A) 5 %; Neutrophils # (A) 6.4 k/uL (1.3-7.7); Neutrophils % (A) 63 %; Platelet Count 342 k/uL (150-450); RBC 4.74 m/uL (3.80-5.40); RDW 12.3 % (11.5-15.5); WBC 10.2 k/uL (3.8-10.6)
[2022-03-17 12:25] LABS: ALT 16 U/L (4-34); AST 22 U/L (14-36); African American GFR (CKD) >90 (>60 ml/min/1.73 sqM); Albumin 4.5 g/dL (3.5-5.0); Alkaline Phosphatase 72 U/L (38-126); Anion Gap 7 mmol/L; Blood Urea Nitrogen 19 mg/dL (7-17); Calcium 9.8 mg/dL (8.4-10.2); Carbon Dioxide 24 mmol/L (22-30); Chloride 108 mmol/L (98-107); Glucose 93 mg/dL (74-99); Magnesium 2.2 mg/dL (1.6-2.3); Non-African American GFR(CKD) >90 (>60 ml/min/1.73 sqM); Potassium 4.8 mmol/L (3.5-5.1); Sodium 139 mmol/L (137-145); Total Bilirubin 0.4 mg/dL (0.2-1.3); Total Protein 7.8 g/dL (6.3-8.2)
[2022-03-17 13:13] VITALS: RESP 16
[2022-03-17 13:15] VITALS: BP 110/60; PULSE 70
== END 2022-03-17 13:15 | disposition home or self-care (01) ==
LOC: EC 11:10
DX: R56.9 Unspecified convulsions (principal); F41.9 Anxiety disorder, unspecified; F17.200 Nicotine dependence, unspecified, uncomplicated; F12.90 Cannabis use, unspecified, uncomplicated; Z91.013 Allergy to seafood; Z91.048 Other nonmedicinal substance allergy status; Z88.8 Allergy status to other drugs, medicaments and biological substances; Z79.899 Other long term (current) drug therapy
CPT/HCPCS: 36415; 80053; 80177; 83735; 85025; 93005; 99284

== ENCOUNTER 2022-04-02 20:09 | Emergency (ER) | payer OTHER ==
[2022-04-02] MEDS ORDERED: HYDROmorphone 0.5 MG/0.5 ML SYRINGE IVP STA (20:33)
[2022-04-02] MEDS ORDERED: ONDANSETRON 4 MG/2 ML VIAL IVP STA (20:34)
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
[2022-04-02 20:40] LABS: Glucose,Whole Blood 121 mg/dL (70-110)
[2022-04-02 21:09] LABS: Basophils # (A) 0.1 k/uL (0-0.2); Basophils % (A) 1 %; Eosinophils # (A) 1.7 k/uL (0-0.7); Eosinophils % (A) 16 %; HCT 43.5 % (34.0-46.0); HGB 14.5 gm/dL (11.4-16.0); Lymphocytes # (A) 2.5 k/uL (1.0-4.8); Lymphocytes % (A) 23 %; MCH 30.7 pg (25.0-35.0); MCHC 33.3 g/dL (31.0-37.0); MCV 92.3 fL (80.0-100.0); Mean Platelet Volume 7.4; Monocytes # (A) 0.5 k/uL (0-1.0); Monocytes % (A) 4 %; Neutrophils # (A) 5.7 k/uL (1.3-7.7); Neutrophils % (A) 53 %; Platelet Count 369 k/uL (150-450); RBC 4.71 m/uL (3.80-5.40); RDW 12.6 % (11.5-15.5); WBC 10.7 k/uL (3.8-10.6)
[2022-04-02] MEDS ORDERED: MORPHINE SULFATE 4 MG/ML SYRINGE IVP STA (21:12)
[2022-04-02 21:16] LABS: Chloride 109 mmol/L (98-107)
[2022-04-02 21:17] LABS: ALT 28 U/L (4-34); AST 27 U/L (14-36); African American GFR (CKD) >90 (>60 ml/min/1.73 sqM); Albumin 4.7 g/dL (3.5-5.0); Alcohol <10 mg/dL; Alkaline Phosphatase 76 U/L (38-126); Anion Gap 12 mmol/L; Blood Urea Nitrogen 13 mg/dL (7-17); Calcium 10.3 mg/dL (8.4-10.2); Carbon Dioxide 20 mmol/L (22-30); Glucose 117 mg/dL (74-99); Non-African American GFR(CKD) >90 (>60 ml/min/1.73 sqM); Potassium 4.2 mmol/L (3.5-5.1); Sodium 141 mmol/L (137-145); Total Bilirubin 0.5 mg/dL (0.2-1.3); Total Protein 8.1 g/dL (6.3-8.2)
[2022-04-02] MEDS ORDERED: SODIUM CHLORIDE 0.9% 2,000 ML IV STA (21:22)
[2022-04-02] MEDS ORDERED: LACOSAMIDE 50 MG TABLET PO STA (21:23)
--- NOTE | 2022-04-02 21:25 | XR ---
EXAMINATION TYPE: XR foot complete LT DATE OF EXAM: 04/02/2022 COMPARISON: NONE HISTORY: Pain TECHNIQUE: 3 views FINDINGS: There is moderate hallux valgus. There is apparent old ununited fracture of the base of the second metatarsal. No acute fracture seen. There is some deformity of the distal fifth metatarsal pr obably from an old fracture. IMPRESSION: Hallux valgus. No acute fracture seen.
--- NOTE | 2022-04-02 21:28 | XR ---
EXAMINATION TYPE: XR ankle complete LT DATE OF EXAM: 04/02/2022 COMPARISON: NONE HISTORY: Pain TECHNIQUE: 3 views FINDINGS: Ankle mortise is anatomic. There is no sign of fracture nor dislocation. Joint spaces are f airly normal. There is minor spurring of the anterior and posterior malleolus. IMPRESSION: Mild degenerative spurring. No fracture seen.
[2022-04-02 21:54] LABS: INR 0.9 (<1.2); Partial Thromboplastin Time 22.1 sec (22.0-30.0)
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
[2022-04-02] MEDS ORDERED: levETIRAcetam IV 1,000 MG in SALINE 1 100ML.BAG IVPB ONE (22:30)
[2022-04-02 22:55] VITALS: BP 118/61; PULSE 64; RESP 22
== END 2022-04-02 22:57 | disposition home or self-care (01) ==
LOC: EC 20:09
DX: R56.9 Unspecified convulsions (principal); F41.9 Anxiety disorder, unspecified; F17.200 Nicotine dependence, unspecified, uncomplicated; F12.90 Cannabis use, unspecified, uncomplicated; Z91.013 Allergy to seafood; Z91.048 Other nonmedicinal substance allergy status; Z88.8 Allergy status to other drugs, medicaments and biological substances; V49.40XA Driver injured in collision with unspecified motor vehicles in traffic accident, initial encounter
CPT/HCPCS: 36415; 93005; 80053; 80177; 83605; 84484; 85025; 85610; 85730; 80320; 80235; 73610; 73630; 72125; 70450; 71260; 74177; 99285; 96374; 96375 ×3; 96361 ×2; J2270; J2405; J1953; J1170; Q9967

== ENCOUNTER 2022-06-30 11:02 | Emergency (ER) | payer OTHER ==
[2022-06-30 11:08] VITALS: BP 131/85; PULSE 65; RESP 20; TEMP 97.3
--- NOTE | 2022-06-30 11:30 | ED ---
General Adult HPI - General Chief complaint: Recheck/Abnormal Lab/Rx Stated complaint: looking for refill on seizure meds Time Seen by Provider: 06/30/22 11:16 Source: patient Mode of arrival: ambulatory Limitations: no limitations - History of Present Illness Initial comments: Patient is a 36-year-old female who presents to the emergency department for medication refill. Patient states she is currently switching neurologists and awaiting her appointmentt. She is almost out of her seizure medications including Keppra and Vimpat. She denies any recent seizure activity. Patient has no other concerns at this time including fever, chills, headache, shortness of breath, cough, chest pain, abdominal pain, nausea, vomiting, diarrhea, and burning with urination. - Related Data Home Medications Medication Instructions Recorded Confirmed Lacosamide [Vimpat] 100 mg PO BID 04/02/22 04/02/22 levETIRAcetam [Keppra] 1,500 mg PO BID 04/02/22 04/02/22 Previous Rx's Medication Instructions Recorded Lacosamide [Vimpat] 100 mg PO BID #60 tab 06/30/22 levETIRAcetam [Keppra] 1,500 mg PO Q12HR #180 tab 06/30/22 Allergies Allergy/AdvReac Type Severity Reaction Status Date / Time shellfish derived [Shellfish] Allergy Intermediate Rash/Hives Verified 06/30/22 11:08 adhesive Allergy Mild Rash/Hives Verified 06/30/22 11:08 oxycodone Allergy Rash/Hives Verified 06/30/22 11:08 PAPER TAPE Allergy Mild Rash/Hives Uncoded 06/30/22 11:08 Review of Systems ROS Statement: Those systems with pertinent positive or pertinent negative responses have been documented in the HPI. ROS Other: All systems not noted in ROS Statement are negative. Past Medical History Past Medical History: GERD/Reflux, Seizure Disorder, Thyroid Disorder Additional Past Medical History / Comment(s): Seizure DISORDER, LAST . Hypothyroid, History of Any Multi-Drug Resistant Organisms: None Reported Past Surgical History: Cholecystectomy, Hysterectomy, Orthopedic Surgery Additional Past Surgical History / Comment(s): ORIF RT Hand. ORIF LT Foot. Past Anesthesia/Blood Transfusion Reactions: No Reported Reaction Past Psychological History: Anxiety Smoking Status: Current every day smoker Past Alcohol Use History: None Reported Past Drug Use History: Marijuana - Past Family History Mother Family Medical History: Deep Vein Thrombosis (DVT), Hypertension Father Family Medical History: Cancer Additional Family Medical History / Comment(s): ? Bone cancer, no biopsy done General Exam Limitations: no limitations General appearance: alert, in no apparent distress Head exam: Present: atraumatic, normocephalic, normal inspection Respiratory exam: Present: normal lung sounds bilaterally. Absent: respiratory distress, wheezes, rales, rhonchi, stridor Cardiovascular Exam: Present: regular rate, normal rhythm, normal heart sounds. Absent: systolic murmur, diastolic murmur, rubs, gallop, clicks GI/Abdominal exam: Present: soft, normal bowel sounds. Absent: distended, tenderness, guarding, rebound, rigid Neurological exam: Present: alert, oriented X3, CN II-XII intact Psychiatric exam: Present: normal affect, normal mood Skin exam: Present: warm, dry, intact, normal color. Absent: rash Course Vital Signs 06/30/22 11:06 Temperature 97.3 F L Pulse Rate 65 Respiratory 20 Rate Blood Pressure 131/85 O2 Sat by Pulse 96 Oximetry Medical Decision Making - Medical Decision Making Was pt. sent in by a medical professional or institution (SILAS Schmidt, WALKING DRAGLINE OPERATOR, urgent care, hospital, or fpc...) When possible be specific @ -No Did you speak to anyone other than the patient for history (EMS, parent, family, police, friend...)? What history was obtained from this source @ -No Did you review nursing and triage notes (agree or disagree)? Why? @ -I reviewed and agree with nursing and triage notes Were old charts reviewed (outside hosp., previous admission, EMS record, old EKG, old radiological studies, urgent care reports/EKG's, fpc records)? Report findings @ -No old charts were reviewed Differential Diagnosis (chest pain, altered mental status, abdominal pain women, abdominal pain men, vaginal bleeding, weakness, fever, dyspnea, syncope, headache, dizziness, GI bleed, back pain, seizure, CVA, palpatations, mental health)? @ -not applicable EKG interpreted by me (3pts min.). @ -As above X-rays interpreted by me (1pt min.). @ -None done CT interpreted by me (1pt min.). @ -None done U/S interpreted by me (1pt. min.). @ -None done What testing was considered but not performed or refused? (CT, X-rays, U/S, labs)? Why? @ -None What meds were considered but not given or refused? Why? @ -None Did you discuss the management of the patient with other professionals (professionals i.e. Dr., PA, WALKING DRAGLINE OPERATOR, lab, RT, psych nurse, social contact worker, foot piece assembler, teacher, sheriffs officer, case mgr)? Give summary @ -No Was smoking cessation discussed for >3mins.? @ -No Was critical care preformed (if so, how long)? @ -No Were there social determinants of health that impacted care today? How? (Homelessness, low income, unemployed, alcoholism, drug addiction, transportation, low edu. Level, literacy, decrease access to med. care, [facility], rehab)? @ -No Was there de-escalation of care discussed even if they declined (Discuss DNR or withdrawal of care, Hospice)? DNR status @ -No What co-morbidities impacted this encounter? (DM, HTN, Smoking, COPD, CAD, Cancer, CVA, ARF, Chemo, Hep., AIDS, mental health diagnosis, sleep apnea, morbid obesity)? @ -Epilepsy Was patient admitted / discharged? Hospital course, mention meds given and route, prescriptions, significant lab abnormalities, going to OR and other pertinent info. @ -Patient presenting for refill of her seizure medications. Patient has no complaints she is seeing a neurologist in [place] next month. She will be discharged with Analia and Geraldine Undiagnosed new problem with uncertain prognosis? @ -No Drug Therapy requiring intensive monitoring for toxicity (Heparin, Nitro, Insulin, Cardizem)? @ -[No] Were any procedures done? @ -[No] Diagnosis/symptom? @ -Encounter for medication refill Acute, or Chronic, or Acute on Chronic? @ Acute Uncomplicated (without systemic symptoms) or Complicated (systemic symptoms)? @ -Uncomplicated Side effects of treatment? @ -[No] Exacerbation, Progression, or Severe Exacerbation? @ -[No] Poses a threat to life or bodily function? How? (Chest pain, [place], [place], pneumonia, PE, COPD, DKA, ARF, appy, cholecystitis, CVA, Diverticulitis, Homicidal, Suicidal, threat to staff... and all critical care pts) @ -[No] Dr. Hamlin is my attending Disposition Clinical Impression: Encounter for medication refill Disposition: HOME SELF-CARE Condition: Good Instructions (If sedation given, give patient instructions): Epilepsy (ED) Additional Instructions: Follow-up with neurology as planned. Return to the emergency department if you experience new, concerning, or worsening symptoms. Prescriptions: levETIRAcetam [Keppra] 1,500 mg PO Q12HR #180 tab Lacosamide [Vimpat] 100 mg PO BID #60 tab Is patient prescribed a controlled substance at d/c from ED?: No Referrals: Pawel Garcia MD [STAFF PHYSICIAN] - 1-2 days
== END 2022-06-30 11:40 | disposition home or self-care (01) ==
LOC: EC 11:02
DX: Z76.0 Encounter for issue of repeat prescription (principal); F41.9 Anxiety disorder, unspecified; F17.200 Nicotine dependence, unspecified, uncomplicated; F12.90 Cannabis use, unspecified, uncomplicated; Z91.013 Allergy to seafood; Z91.09 Other allergy status, other than to drugs and biological substances; Z88.8 Allergy status to other drugs, medicaments and biological substances; Z79.899 Other long term (current) drug therapy
CPT/HCPCS: 99281

== ENCOUNTER → 2022-07-20 | Outpatient (CLI) | payer OTHER ==
[2022-07-20 15:02] LABS: Basophils # (A) 0.16 X 10*3/uL (0.00-0.10); Basophils % (A) 1.9 %; Eosinophils # (A) 1.74 X 10*3/uL (0.04-0.35); Eosinophils % (A) 21.1 %; HGB 13.9 g/dL (12.0-15.0); Immature Grans, Automated 0.2 %; Lymphocytes # (A) 2.32 X 10*3/uL (0.90-5.00); Lymphocytes % (A) 28.2 %; MCH 31.4 pg (27.0-32.0); MCHC 33.1 g/dL (32.0-37.0); Monocytes # (A) 0.45 X 10*3/uL (0.20-1.00); Monocytes % (A) 5.5 %; NRBC Per 100 WBC 0 /100 WBCS (0.0-0.0); Neutrophils # (A) 3.55 X 10*3/uL (1.80-7.70); Neutrophils % (A) 43.1 %; Platelet Count 361 X 10*3/uL (140-440); RBC 4.42 X 10*6/uL (4.10-5.20); RDW 12.7 % (11.5-14.5); WBC 8.24 X 10*3/uL (4.50-10.00)
[2022-07-20 15:32] LABS: African American GFR (CKD) 108.8 (60.0-200.0); Albumin 4.3 g/dL (3.8-4.9); Albumin/Globulin Ratio 1.47 (1.60-3.17); Anion Gap 13.1 mmol/L (10.00-18.00); BUN/Creat Ratio 13.72 Ratio (12.00-20.00); Calcium 9.9 mg/dL (8.7-10.3); Globulin 2.9 g/dL (1.6-3.3); Non-African American GFR(CKD) 93.9 (60.0-200.0); Potassium 4.8 mmol/L (3.5-5.5); Total Bilirubin 0.3 mg/dL (0.30-1.20); Total Protein 7.1 g/dL (6.2-8.2)
== END | disposition home or self-care (01) ==
LOC: LABWHC1 11:19
PROVIDERS: ATTEND Psychiatry & Neurology Neurology
DX: G40.009 Localization-related (focal) (partial) idiopathic epilepsy and epileptic syndromes with seizures of localized onset, not intractable, without status epilepticus (principal)
CPT/HCPCS: 36415; 80053; 80177; 85025

== ENCOUNTER 2022-08-28 05:43 | Emergency (ER) | payer OTHER ==
[2022-08-28 05:50] VITALS: RESP 18
[2022-08-28] MEDS ORDERED: SODIUM CHLORIDE 0.9% 1,000 ML IV STA (06:14)
[2022-08-28] MEDS ORDERED: ONDANSETRON 4 MG/2 ML VIAL IVP STA (06:15)
[2022-08-28] MEDS ORDERED: KETOROLAC 15 MG/ML 1 ML VIAL IVP STA (06:15)
--- NOTE | 2022-08-28 06:42 | ED ---
Seizure HPI - General Chief Complaint: Seizure Stated Complaint: Seizure Time Seen by Provider: 08/28/22 05:58 Source: patient, EMS, RN notes reviewed Mode of arrival: EMS Limitations: no limitations - History of Present Illness Initial Comments: This is a 37-year-old female who presents to the emergency department for concerns of a seizure. States that she got home around 2:30 AM last night and believes that she had a seizure around 5-5:30 this morning. When she woke up she had a headache and had bitten her tongue, which is typically the case when she has a seizure. States that they always occur in her sleep. This was not witnessed. Denies sustaining any injuries. Her last seizure was in March 2022. Currently being treated with Vimpat by neurology in [place]. She has been compliant with her medication and denies missing any doses. Unsure what the trigger may have been. States that she has a headache and feels nauseous at this time. Denies any fevers, chills, sore throat, cough, dyspnea, chest pain, palpitations, abdominal pain, vomiting, diarrhea, or back pain. MD Complaint: seizure Seizure History: known seizure disorder Place: home - Related Data Home Medications Medication Instructions Recorded Confirmed Lacosamide [Vimpat] 100 mg PO BID 04/02/22 04/02/22 levETIRAcetam [Keppra] 1,500 mg PO BID 04/02/22 04/02/22 Previous Rx's Medication Instructions Recorded Lacosamide [Vimpat] 100 mg PO BID #60 tab 06/30/22 levETIRAcetam [Keppra] 1,500 mg PO Q12HR #180 tab 06/30/22 Allergies Allergy/AdvReac Type Severity Reaction Status Date / Time shellfish derived [Shellfish] Allergy Intermediate Rash/Hives Verified 08/28/22 05:50 adhesive Allergy Mild Rash/Hives Verified 08/28/22 05:50 oxycodone Allergy Rash/Hives Verified 08/28/22 05:50 PAPER TAPE Allergy Mild Rash/Hives Uncoded 08/28/22 05:50 Review of Systems ROS Statement: Those systems with pertinent positive or pertinent negative responses have been documented in the HPI. ROS Other: All systems not noted in ROS Statement are negative. Past Medical History Past Medical History: GERD/Reflux, Seizure Disorder, Thyroid Disorder Additional Past Medical History / Comment(s): Seizure DISORDER, LAST . Hypothyroid, History of Any Multi-Drug Resistant Organisms: None Reported Past Surgical History: Cholecystectomy, Hysterectomy, Orthopedic Surgery Additional Past Surgical History / Comment(s): ORIF RT Hand. ORIF LT Foot. Past Anesthesia/Blood Transfusion Reactions: No Reported Reaction Past Psychological History: Anxiety Smoking Status: Current every day smoker Past Alcohol Use History: None Reported Past Drug Use History: Marijuana - Past Family History Mother Family Medical History: Deep Vein Thrombosis (DVT), Hypertension Father Family Medical History: Cancer Additional Family Medical History / Comment(s): ? Bone cancer, no biopsy done General Exam Limitations: no limitations General appearance: alert, in no apparent distress Head exam: Present: atraumatic, normocephalic, normal inspection Eye exam: Present: normal appearance, PERRL, EOMI. Absent: scleral icterus, conjunctival injection, periorbital swelling Respiratory exam: Present: normal lung sounds bilaterally. Absent: respiratory distress, wheezes, rales, rhonchi, stridor Cardiovascular Exam: Present: regular rate, normal rhythm, normal heart sounds. Absent: systolic murmur, diastolic murmur, rubs, gallop, clicks Neurological exam: Present: alert, oriented X3, CN II-XII intact Psychiatric exam: Present: normal affect, normal mood Skin exam: Present: warm, dry, intact, normal color. Absent: rash Course Vital Signs 08/28/22 08/28/22 08/28/22 05:45 06:50 08:07 Temperature 98.4 F 98.2 F Pulse Rate 97 68 74 Respiratory 18 18 18 Rate Blood Pressure 111/72 110/54 110/64 O2 Sat by Pulse 96 97 98 Oximetry Medical Decision Making - Medical Decision Making This is a 37-year-old female who presents to the emergency department for a seizure. Was pt. sent in by a medical professional or institution? @ -No Did you speak to anyone other than the patient for history? @ -No Did you review nursing and triage notes? @ -Yes, and I agree, it is accurate with regards to the patient's symptoms. Were old charts reviewed? @ -No Differential Diagnosis? @ -Differential Seizure: Recurrent seizure disorder, febrile seizure, alcohol withdrawal, stimulants, meningitis, encephalitis, intercranial hemorrhage, intracranial tumor, stroke, eclampsia, thyrotoxicosis, hypocalcemia, hyponatremia, hypernatremia, hypomagnesemia, psychogenic, this is not meant to be an all-inclusive list. EKG interpreted by me (3pts min.)? @ -EKG interpreted by me demonstrating the following: Sinus rhythm. Ventricular rate 93 beats per minute, MS interval 210 ms, QRS duration 84 ms, QTC 384 ms. X-rays interpreted by me (1pt min.)? @ -Not obtained CT interpreted by me (1pt min.)? @ -Not obtained U/S interpreted by me (1pt. min.)? @ -Not obtained What testing was considered but not performed? (CT, X-rays, U/S, labs)? Why? @ -None What meds were considered but not given? Why? @ -None Did you discuss the management of the patient with other professionals? @ -No Did you reconcile home meds? @ -No Was smoking cessation discussed for >3mins.? @ -No Was critical care preformed (if so, how long)? @ -No Were there social determinants of health that impacted care today? How? (Homele ssness, low income, unemployed, alcoholism, drug addiction, transportation, low edu. Level, literacy, decrease access to med. care, fpc, rehab)? @ -No Was there de-escalation of care discussed even if they declined? (Discuss DNR or withdrawal of care, Hospice)? @ -No What co-morbidities impacted this encounter? (DM, HTN, Smoking, COPD, CAD, Cancer, CVA, Hep., AIDS, mental health diagnosis, sleep apnea, morbid obesity)? @ -Seizure disorder Was patient admitted / discharged? @ -Discharged. Lab work obtained revealing minor leukocytosis and was otherwise nonactionable. Alcohol level negative. Patient given IV fluids, Toradol, and Zofran, with significant relief in symptoms. Patient overall feels much improved and requests discharge home. States that she has a follow up with neurology in 3 weeks and does not need a refill on the Vimpat. I instructed her to contact her neurologist office regarding the possible seizure. She is also reminded to avoid driving or operating machinery for 6 months. Advised ibuprofen and Tylenol as needed for any additional headaches. Undiagnosed new problem with uncertain prognosis? @ -None Drug Therapy requiring intensive monitoring for toxicity (Heparin, Nitro, Insulin, Cardizem)? @ -None Were any procedures done? @ -None Diagnosis/symptom? @ -Seizure Acute, or Chronic, or Acute on Chronic? @ -Acute Uncomplicated (without systemic symptoms) or Complicated (systemic symptoms)? @ -Uncomplicated Side effects of treatment? @ -None Exacerbation, Progression, or Severe Exacerbation] @ -Not applicable (however this is an exacerbation of her seizure disorder) Poses a threat to life or bodily function? @ -No Return precautions reviewed in depth, the patient is instructed to return to the emergency department with any new, worsening, or concerning symptoms. Patient verbalized understanding. This case was discussed in detail with the attending ED physician, Dr. Cobian. Presentation, findings, and treatment plan discussed in detail as well. - Lab Data Result diagrams: 08/28/22 06:56 08/28/22 06:56 Lab Results 08/28/22 08/28/22 Range/Units 06:56 06:56 WBC 12.5 H (3.8-10.6) k/uL RBC 4.30 (3.80-5.40) m/uL Hgb 14.1 (11.4-16.0) gm/dL Hct 40.5 (34.0-46.0) % MCV 94.3 (80.0-100.0) fL MCH 32.8 (25.0-35.0) pg MCHC 34.7 (31.0-37.0) g/dL RDW 12.3 (11.5-15.5) % Plt Count 287 (150-450) k/uL MPV 7.3 Neutrophils % 77 % Lymphocytes % 11 % Monocytes % 7 % Eosinophils % 4 % Basophils % 0 % Neutrophils # 9.6 H (1.3-7.7) k/uL Lymphocytes # 1.3 (1.0-4.8) k/uL Monocytes # 0.8 (0-1.0) k/uL Eosinophils # 0.5 (0-0.7) k/uL Basophils # 0.0 (0-0.2) k/uL Sodium 140 (137-145) mmol/L Potassium 3.9 (3.5-5.1) mmol/L Chloride 107 (98-107) mmol/L Carbon Dioxide 21 L (22-30) mmol/L Anion Gap 12 mmol/L BUN 17 (7-17) mg/dL Creatinine 0.89 (0.52-1.04) mg/dL Est GFR (CKD-EPI)AfAm >90 (>60 ml/min/1.73 sqM) Est GFR (CKD-EPI)NonAf 83 (>60 ml/min/1.73 sqM) Glucose 93 (74-99) mg/dL Calcium 9.4 (8.4-10.2) mg/dL Magnesium 2.2 (1.6-2.3) mg/dL Total Bilirubin 0.4 (0.2-1.3) mg/dL AST 23 (14-36) U/L ALT 18 (4-34) U/L Alkaline Phosphatase 85 (38-126) U/L Total Protein 7.8 (6.3-8.2) g/dL Albumin 4.6 (3.5-5.0) g/dL Serum Alcohol <10 mg/dL Disposition Clinical Impression: Generalized seizure Disposition: HOME SELF-CARE Instructions (If sedation given, give patient instructions): Seizure/Epilepsy Discharge Instructions & Follow-Up, Recurrent Seizures in Adults (ED) Additional Instructions: Return to the emergency department with any new, worsening, or concerning symptoms. Alternate with ibuprofen and Tylenol as needed for any additional headaches. Contact your neurology office and let them know about the seizure. Do not drive or operative machinery for 6 months. Follow up with your primary care provider in 1-2 days. Is patient prescribed a controlled substance at d/c from ED?: No Referrals: Nonstaff,Physician [Primary Care Provider] - 1-2 days
[2022-08-28 07:07] LABS: Basophils % (A) 0 %; Eosinophils # (A) 0.5 k/uL (0-0.7); Eosinophils % (A) 4 %; HCT 40.5 % (34.0-46.0); HGB 14.1 gm/dL (11.4-16.0); Lymphocytes # (A) 1.3 k/uL (1.0-4.8); Lymphocytes % (A) 11 %; MCH 32.8 pg (25.0-35.0); MCHC 34.7 g/dL (31.0-37.0); MCV 94.3 fL (80.0-100.0); Mean Platelet Volume 7.3; Monocytes # (A) 0.8 k/uL (0-1.0); Monocytes % (A) 7 %; Neutrophils # (A) 9.6 k/uL (1.3-7.7); Neutrophils % (A) 77 %; Platelet Count 287 k/uL (150-450); RDW 12.3 % (11.5-15.5); WBC 12.5 k/uL (3.8-10.6)
[2022-08-28 07:18] LABS: ALT 18 U/L (4-34); AST 23 U/L (14-36); African American GFR (CKD) >90 (>60 ml/min/1.73 sqM); Albumin 4.6 g/dL (3.5-5.0); Alcohol <10 mg/dL; Alkaline Phosphatase 85 U/L (38-126); Anion Gap 12 mmol/L; Blood Urea Nitrogen 17 mg/dL (7-17); Calcium 9.4 mg/dL (8.4-10.2); Carbon Dioxide 21 mmol/L (22-30); Chloride 107 mmol/L (98-107); Glucose 93 mg/dL (74-99); Magnesium 2.2 mg/dL (1.6-2.3); Non-African American GFR(CKD) 83 (>60 ml/min/1.73 sqM); Potassium 3.9 mmol/L (3.5-5.1); Sodium 140 mmol/L (137-145); Total Bilirubin 0.4 mg/dL (0.2-1.3); Total Protein 7.8 g/dL (6.3-8.2)
[2022-08-28] MEDS ORDERED: IBUPROFEN 600 MG STARTER PACK 4 TAB BTL PO STA (07:44)
[2022-08-28] MEDS ORDERED: ONDANSETRON 4 MG ODT STARTER PACK 2 TAB BTL PO STA (07:44)
[2022-08-28 08:08] VITALS: BP 110/64; PULSE 74; TEMP 98.2
[2022-08-28 08:50] LABS: Appearance,Urine Clear (Clear); Bilirubin,Urine Negative (Negative); Blood,Urine Negative (Negative); Color,Urine Light Yellow; Glucose,Urine (UA) Negative (Negative); Ketones,Urine Negative (Negative); Leukocyte Esterase,Urine Negative (Negative); Nitrite,Urine Negative (Negative); Protein,Urine Negative (Negative); Specific Gravity,Urine 1.015 (1.001-1.035); Urobilinogen,Urine <2.0 mg/dL (<2.0)
[2022-08-28 09:22] LABS: Amphetamine Screen,Urine Not Detected (NotDetected); Barbiturate Screen,Urine Not Detected (NotDetected); Benzodiazepines Screen,Urine Not Detected (NotDetected); Cocaine Screen,Urine Not Detected (NotDetected); Methadone Screen, Urine Not Detected (NotDetected); Opiate Screen,Urine Not Detected (NotDetected); Oxycodone Screen, Urine Not Detected (NotDetected); Phencyclidine Screen,Urine Not Detected (NotDetected); Tricyclic Antidepressant,Urine Not Detected (NotDetected); Urn Cannabinoid Scrn Detected (NotDetected)
== END 2022-08-28 08:12 | disposition home or self-care (01) ==
LOC: EC 05:43
DX: G40.401 Other generalized epilepsy and epileptic syndromes, not intractable, with status epilepticus (principal); F41.9 Anxiety disorder, unspecified; F17.200 Nicotine dependence, unspecified, uncomplicated; F12.90 Cannabis use, unspecified, uncomplicated; Z91.013 Allergy to seafood; Z91.048 Other nonmedicinal substance allergy status; Z88.8 Allergy status to other drugs, medicaments and biological substances; Z79.899 Other long term (current) drug therapy
CPT/HCPCS: 36415; 93005; 80053; 83735; 85025; 81003; 80306; 99285; 96374; 96375; 96361; G0480; J2405; J1885; S0119; 80320

== ENCOUNTER 2022-11-17 16:49 | Emergency (ER) | payer OTHER ==
--- NOTE | 2022-11-17 17:00 | ED ---
Back Pain HPI - General Source: patient Limitations: no limitations <Navi Degroot - Last Filed: 11/17/22 17:00> - History of Present Illness MD Complaint: back pain -: days(s) Similar Symptoms Previously: Yes Place: work Radiation: none Severity: moderate Severity scale (1-10): 5 Quality: sharp Consistency: constant Improves With: none Worsens With: none <Sheldon Bender - Last Filed: 11/17/22 21:18> - General Chief Complaint: Back Pain/Injury Stated Complaint: lower back pain Time Seen by Provider: 11/17/22 17:00 - History of Present Illness Initial Comments: 37-year-old female presented chief complaint of lower back pain ongoing for the last 4 days. States that she may have injured her back at work. No loss of bowel or bladder control or saddle paresthesia. (Navi Degroot) This is a 37-year-old female to the emergency department for evaluation of severe back pain mid back pain with history of chronic back pain. Patient states she was doing some work lifting at work and began to have pain in her back. Patient is able to ambulate no loss of bowel or bladder. Patient is having persistent mid back pain. No fevers no other neurological complaint (Sheldon Bender) - Related Data Home Medications Medication Instructions Recorded Confirmed Lacosamide [Vimpat] 100 mg PO BID 04/02/22 04/02/22 levETIRAcetam [Keppra] 1,500 mg PO BID 04/02/22 04/02/22 Previous Rx's Medication Instructions Recorded Lacosamide [Vimpat] 100 mg PO BID #60 tab 06/30/22 levETIRAcetam [Keppra] 1,500 mg PO Q12HR #180 tab 06/30/22 Allergies Allergy/AdvReac Type Severity Reaction Status Date / Time shellfish derived [Shellfish] Allergy Intermediate Rash/Hives Verified 11/17/22 16:58 adhesive Allergy Mild Rash/Hives Verified 11/17/22 16:58 oxycodone Allergy Rash/Hives Verified 11/17/22 16:58 PAPER TAPE Allergy Mild Rash/Hives Uncoded 08/28/22 05:50 Review of Systems ROS Other: All systems not noted in ROS Statement are negative. <Navi Degroot - Last Filed: 11/17/22 17:00> ROS Other: All systems not noted in ROS Statement are negative. <Sheldon Bender Richard - Last Filed: 11/17/22 21:18> ROS Statement: Those systems with pertinent positive or pertinent negative responses have been documented in the HPI. Past Medical History Past Medical History: GERD/Reflux, Seizure Disorder, Thyroid Disorder Additional Past Medical History / Comment(s): Seizure DISORDER, LAST . Hypothyroid, History of Any Multi-Drug Resistant Organisms: None Reported Past Surgical History: Cholecystectomy, Hysterectomy, Orthopedic Surgery Additional Past Surgical History / Comment(s): ORIF RT Hand. ORIF LT Foot. Past Anesthesia/Blood Transfusion Reactions: No Reported Reaction Past Psychological History: Anxiety Smoking Status: Current every day smoker Past Alcohol Use History: None Reported Past Drug Use History: Marijuana - Past Family History Mother Family Medical History: Deep Vein Thrombosis (DVT), Hypertension Father Family Medical History: Cancer Additional Family Medical History / Comment(s): ? Bone cancer, no biopsy done <DegrootDylanmona - Last Filed: 11/17/22 17:00> General Exam Limitations: no limitations <Navi Degroot - Last Filed: 11/17/22 17:00> General appearance: alert, in no apparent distress Head exam: Present: atraumatic, normocephalic, normal inspection Eye exam: Present: normal appearance, PERRL, EOMI. Absent: scleral icterus, conjunctival injection, periorbital swelling ENT exam: Present: normal exam, mucous membranes moist Neck exam: Present: normal inspection. Absent: tenderness, meningismus, lymphadenopathy Respiratory exam: Present: normal lung sounds bilaterally. Absent: respiratory distress, wheezes, rales, rhonchi, stridor Cardiovascular Exam: Present: regular rate, normal rhythm, normal heart sounds. Absent: systolic murmur, diastolic murmur, rubs, gallop, clicks GI/Abdominal exam: Present: soft, normal bowel sounds. Absent: distended, tenderness, guarding, rebound, rigid Extremities exam: Present: normal inspection, full ROM, normal capillary refill. Absent: tenderness, pedal edema, joint swelling, calf tenderness Back exam: Present: normal inspection Neurological exam: Present: alert, oriented X3, CN II-XII intact Psychiatric exam: Present: normal affect, normal mood Skin exam: Present: warm, dry, intact, normal color. Absent: rash <Sheldon Bender - Last Filed: 11/17/22 21:18> - General Exam Comments Initial Comments: Visual Physical Exam Vital signs reviewed General: Well-appearing, nontoxic, no acute distress. Head: Normocephalic, atraumatic Eyes: PERRLA, EOMI ENT: Airway patent Chest: Nonlabored breathing Skin: No visual rash, normal skin tone Neuro: Alert and oriented 3 Musculoskeletal: No gross abnormalities (Navi Degroot) Course <Sheldon Bender - Last Filed: 11/17/22 21:18> Vital Signs 11/17/22 11/17/22 16:55 20:01 Temperature 98.4 F 98.1 F Pulse Rate 101 H 96 Respiratory 18 18 Rate Blood Pressure 125/69 122/70 O2 Sat by Pulse 100 98 Oximetry - Reevaluation(s) Reevaluation #1: 11/17/22 21:17 Medical records reviewed (Sheldon Bender) Reevaluation #2: 11/17/22 21:17 Patient's pain is improved and she is able to ambulate without neurological complaint (Shelodn Bender) Reevaluation #3: 11/17/22 21:17 Patient informed results questions answered (Sheldon Bender) Reevaluation #4: 11/17/22 21:17 Was pt. sent in by a medical professional or institution (, PA, WHEEL ALIGNMENT TECHNICIAN, urgent care, hospital, or group home...) When possible be specific @ -no Did you speak to anyone other than the patient for history (EMS, parent, family, police, friend...)? What history was obtained from this source @ -no Did you review nursing and triage notes (agree or disagree)? Why? @ -agree Are old charts reviewed (outside hosp., previous admission, EMS record, old EKG, old radiological studies, urgent care reports/EKG's, group home records)? Report findings @ -yes Differential Diagnosis (chest pain, altered mental status, abdominal pain women, abdominal pain men, vaginal bleeding, weakness, fever, dyspnea, syncope, headache, dizziness, GI bleed, back pain, seizure, CVA, palpatations, mental health, musculoskeletal)? @ -prior EKG interpreted by me (3pts min.). @ -yes X-rays interpreted by me (1pt min.). @ -yes CT interpreted by me (1pt min.). @ -no U/S interpreted by me (1pt. min.). @ -no What testing was considered but not performed or refused? (CT, X-rays, U/S, labs)? Why? @ -none What meds were considered but not given or refused? Why? @ -none Did you discuss the management of the patient with other professionals (professionals i.e. Dr., PA, WHEEL ALIGNMENT TECHNICIAN, lab, RT, psych nurse, 7th grade social studies teacher, heel nailing machine operator, teacher, ordnance officer, child welfare caseworker)? Give summary @ -no Was smoking cessation discussed for >3mins.? @ -no Was critical care preformed (if so, how long)? @ -no Were there social determinants of health that impacted care today? How? (Homelessness, low income, unemployed, alcoholism, drug addiction, transportation, low edu. Level, literacy, decrease access to med. care, detention, rehab)? @ -none Was there de-escalation of care discussed even if they declined (Discuss DNR or withdrawal of care, Hospice)? DNR status @ -no What co-morbidities impacted this encounter? (DM, HTN, Smoking, COPD, CAD, Cancer, CVA, ARF, Chemo, Hep., AIDS, mental health diagnosis, sleep apnea, morbid obesity)? @ -none Was patient admitted / discharged? Hospital course, mention meds given and route, prescriptions, significant lab abnormalities, going to OR and other pertinent info. @ - Undiagnosed new problem with uncertain prognosis? @ -no Drug Therapy requiring intensive monitoring for toxicity (Heparin, Nitro, Insulin, Cardizem)? @ -no Were any procedures done? @ -no Diagnosis/symptom? @ - Acute, or Chronic, or Acute on Chronic? @ -Acute Uncomplicated (without systemic symptoms) or Complicated (systemic symptoms)? @ -Complicated Side effects of treatment? @ -no Exacerbation, Progression, or Severe Exacerbation? @ -exacerbation Poses a threat to life or bodily function? How? (Chest pain, [place], [place], pneumonia, PE, COPD, DKA, ARF, appy, cholecystitis, CVA, Diverticulitis, Homicidal, Suicidal, threat to staff... and all critical care pts) @ -yes (Sheldon Bender) Reevaluation #5: 11/17/22 21:17 Differential Back Pain: Strain, zoster, cauda equina syndrome, epidural abscess, vertebral osteomyelitis, discitis, fracture, subluxation, disc herniation, DJD, spinal stenosis, dissection, AAA, pancreatitis, peptic ulcer disease, pyelonephritis, kidney stone, this is not meant to be an all-inclusive list. (Sheldon Bender) Medical Decision Making - Radiology Data Radiology results: report reviewed (X-ray LS-spine is negative for traumatic injury or acute disease, does have slip disc disease), image reviewed <Sheldon Bender - Last Filed: 11/17/22 21:18> - Medical Decision Making 29 female to get on chronic back pain. Pain is well-controlled currently and patient can be discharged home (Sheldon Bender) Disposition <Navi Degroot - Last Filed: 11/17/22 17:00> Is patient prescribed a controlled substance at d/c from ED?: No Time of Disposition: 19:45 <Sheldon Bender - Last Filed: 11/17/22 21:18> Clinical Impression: Chronic pain, Strain of lumbar region, Mid back pain, Lumbar radiculopathy Disposition: HOME SELF-CARE Condition: Good Instructions (If sedation given, give patient instructions): Acute Low Back Pain (ED) Referrals: None,Stated [Primary Care Provider] - 1-2 days
[2022-11-17 17:02] VITALS: RESP 18
--- NOTE | 2022-11-17 17:53 | XR ---
EXAMINATION TYPE: XR lumbar spine 2 or 3V DATE OF EXAM: 11/17/2022 5:23 PM CLINICAL INDICATION:Female, 37 years old with history of pain; PHH COMPARISON: None TECHNIQUE: Frontal, lateral and coned in L5-S1 lateral views of the spine. FINDINGS: No evidence of any acute osseous pathology. No evidence of loss of vertebral body height i s seen. There is normal alignment of the lumbar vertebral bodies. Mild scattered disc space narrowing . Multilevel marginal osteophyte formation throughout the visualized spine. There is facet joint arth ropathy throughout the spine. Scattered at least mild neural foraminal stenosis. IMPRESSION: 1. No acute fracture. 2. Mild multilevel disc degeneration.
[2022-11-17] MEDS ORDERED: MORPHINE SULFATE 4 MG/ML SYRINGE IM STA (19:43)
[2022-11-17] MEDS ORDERED: IBUPROFEN 600 MG STARTER PACK 4 TAB BTL PO STA (19:43)
[2022-11-17] MEDS ORDERED: traMADol 50 MG STARTER PACK 3 TAB BTL PO STA (19:43)
[2022-11-17 20:06] VITALS: BP 122/70; PULSE 96; TEMP 98.1
== END 2022-11-17 20:01 | disposition home or self-care (01) ==
LOC: EC 16:49
DX: S39.012A Strain of muscle, fascia and tendon of lower back, initial encounter (principal); M54.16 Radiculopathy, lumbar region; F17.200 Nicotine dependence, unspecified, uncomplicated; F12.90 Cannabis use, unspecified, uncomplicated; Z86.59 Personal history of other mental and behavioral disorders; Z91.013 Allergy to seafood; Z91.09 Other allergy status, other than to drugs and biological substances; Z88.8 Allergy status to other drugs, medicaments and biological substances; X50.0XXA Overexertion from strenuous movement or load, initial encounter
CPT/HCPCS: 72100; 99283; 96372; J2270

== ENCOUNTER → 2023-07-21 | Outpatient (CLI) | payer OTHER ==
--- NOTE | 2023-07-21 17:48 | MR ---
EXAMINATION TYPE: MR brain wo/w con DATE OF EXAM: 07/21/2023 3:53 PM CLINICAL INDICATION:Female, 37 years old with history of R41.82 ALT MENTAL STAT R56.9 CONV R90.82 R93 .0; PHH, HX OF SEIZURES COMPARISON: 12/14/2021 TECHNIQUE: Multi planar, multi sequence imaging was performed through the brain including: T1, T2, In version recovery, susceptibility weighted imaging and gradient echo imaging and Diffusion weighted im aging. The patient was then given intravenous contrast and multi planar, T1 fat-saturation images wer e obtained. IV Contrast: 9 cc Gadavist FINDINGS: The ernandez-white junctions, ventricular system, and cisterns appear unremarkable. Multiple T2/FLAIR hy perintense foci demonstrated within the predominantly subcortical and periventricular white matter wi th largest in the right frontal lobe subcortical white matter measuring up to 8 mm. No evidence for m esial temporal sclerosis. Midline structures show no abnormality. Diffusion-weighted imaging shows no evidence of restricted diffusion. The bone marrow signal is within normal limits. The paranasal sinuses and globes are unremarkable. Bi lateral mastoid effusions. IMPRESSION: 1. No evidence of intracranial mass or acute/subacute infarct. 2. No evidence of active demyelination. Similar subcortical and periventricular nonspecific white mat ter hyperintense foci. Etiologies include epilepsy, demyelinating disease, versus other etiologies. 3. Similar bilateral mastoid effusions.
== END | disposition home or self-care (01) ==
LOC: RADMRIMAIN 14:14
PROVIDERS: ATTEND Surgery
DX: G93.89 Other specified disorders of brain (principal); H74.8X3 Other specified disorders of middle ear and mastoid, bilateral; R56.9 Unspecified convulsions; R90.82 White matter disease, unspecified; R93.0 Abnormal findings on diagnostic imaging of skull and head, not elsewhere classified; Z79.899 Other long term (current) drug therapy
CPT/HCPCS: 80183; 80235; 70553; 36415; A9585

== ENCOUNTER → 2023-11-11 | Outpatient (CLI) | payer OTHER ==
[2023-11-11 15:12] LABS: % Iron Saturation 25.27 (12.00-45.00); ALT 17 U/L (8-44); AST 19 U/L (13-35); Albumin 4.4 g/dL (3.8-4.9); Albumin/Globulin Ratio 1.47 Ratio (1.60-3.17); Alkaline Phosphatase 77 U/L (41-126); BUN/Creat Ratio 15.56 Ratio (12.00-20.00); Chloride 105 mmol/L (96-109); Ferritin 95.9 ng/mL (10.0-291.0); Glucose 88 mg/dL (70-110); Iron 93 UG/DL (50-170); Potassium 4.6 mmol/L (3.5-5.5); Sodium 140 mmol/L (135-145); Total Bilirubin <0.2 mg/dL (0.3-1.2); Total Iron Binding Capacity 368 UG/DL (228-460); Total Protein 7.4 g/dL (6.2-8.2)
[2023-11-11 15:13] LABS: Basophils # (A) 0.13 X 10*3/uL (0.00-0.10); Basophils % (A) 1.4 %; Eosinophils # (A) 0.99 X 10*3/uL (0.04-0.35); Eosinophils % (A) 10.8 %; HCT 44.4 % (37.2-46.3); HGB 14.5 g/dL (12.0-15.0); Lymphocytes # (A) 2.79 X 10*3/uL (0.90-5.00); Lymphocytes % (A) 30.5 %; MCH 30.9 pg (27.0-32.0); MCHC 32.7 g/dL (32.0-37.0); MCV 94.7 FL (80.0-97.0); Mean Platelet Volume 9.8 FL (9.5-12.2); Monocytes # (A) 0.59 X 10*3/uL (0.20-1.00); Monocytes % (A) 6.4 %; NRBC Per 100 WBC 0 X 10*3/uL (0.00-0.01); Neutrophils # (A) 4.63 X 10*3/uL (1.80-7.70); Neutrophils % (A) 50.7 %; Platelet Count 378 X 10*3/uL (140-440); RBC 4.69 X 10*6/uL (4.10-5.20); RDW 13.7 % (11.5-14.5); WBC 9.15 X 10*3/uL (4.50-10.00)
== END | disposition home or self-care (01) ==
LOC: LABWHC1 09:55
PROVIDERS: ATTEND Psychiatry & Neurology Neurology
DX: G40.909 Epilepsy, unspecified, not intractable, without status epilepticus (principal); D64.9 Anemia, unspecified; R53.83 Other fatigue
CPT/HCPCS: 36415; 80053; 80183; 80235; 82728; 82746; 83540; 83550; 84466; 85025